=== PATIENT | male | born 1965 | race Caucasian/White ===

== ENCOUNTER → 2016-07-30 | Outpatient (CLI) | payer OTHER ==
[2016-07-30 09:56] LABS: Cholesterol 148 mg/dL (<200); HDL Cholesterol 47 mg/dL (40-60); Triglycerides 92 mg/dL (<150)
== END | disposition home or self-care (01) ==
LOC: LABWHC1 08:43
PROVIDERS: ATTEND Internal Medicine Cardiovascular Disease
DX: E78.5 Hyperlipidemia, unspecified (principal); E11.9 Type 2 diabetes mellitus without complications; I10 Essential (primary) hypertension
CPT/HCPCS: 36415; 80061

== ENCOUNTER 2016-08-07 10:42 | Day surgery (SDC) | payer OTHER ==
[2016-08-05 12:16] VITALS: BMI 27.2
[~2016-08-07 10:42] MED LIST: ALPRAZolam 0.25 MG TAB PO PRN; ALPRAZolam 0.5 MG TAB PO PRN; ASPIRIN 325 MG TAB PO STA; ATORVASTATIN 80 MG TAB PO STA; NITROGLYCERIN SL TABS 0.4 MG TAB SUBLINGUAL PRN; SODIUM CHLORIDE 0.9% 1,000 ML in EMPTY BAG 1 BAG IV ONE
[2016-08-07] MEDS ORDERED: LISINOPRIL 10 MG TAB PO STA (11:05)
[2016-08-07] MEDS ORDERED: METOPROLOL TARTRATE 25 MG TAB PO STA (11:05)
[2016-08-07 11:17] LABS: Glucose,Whole Blood 151 mg/dL (75-99)
[2016-08-07 11:31] LABS: Basophils # (A) 0.1 k/uL (0-0.2); Basophils % (A) 1 %; CH 30.1; CHCM 34.6; Eosinophils # (A) 0.1 k/uL (0-0.7); Eosinophils % (A) 1 %; HCT 46.4 % (39.0-53.0); HDW 2.79; HGB 15.6 gm/dL (13.0-17.5); Luc # (Auto) 0.19; Luc % (Auto) 2; Lymphocytes # (A) 1.2 k/uL (1.0-4.8); Lymphocytes % (A) 16 %; MCH 29.5 pg (25.0-35.0); MCHC 33.7 g/dL (31.0-37.0); MCV 87.5 fL (80.0-100.0); Mean Platelet Volume 7.3; Monocytes # (A) 0.4 k/uL (0-1.0); Monocytes % (A) 6 %; Neutrophils # (A) 5.7 k/uL (1.3-7.7); Neutrophils % (A) 74 %; WBC 7.7 k/uL (3.8-10.6); WBC (Perox) 7.77
[2016-08-07 11:37] LABS: Anion Gap 9 mmol/L; Blood Urea Nitrogen 27 mg/dL (9-20); Calcium 9.6 mg/dL (8.4-10.2); Carbon Dioxide 24 mmol/L (22-30); Chloride 107 mmol/L (98-107); Glucose 159 mg/dL (74-99); Non-African American GFR(MDRD) >60 (>60 ml/min/1.73 sqM); Potassium 4.4 mmol/L (3.5-5.1); Sodium 140 mmol/L (137-145)
[2016-08-07] MEDS ORDERED: MIDAZOLAM 2 MG/2 ML VIAL IV ONE (12:23)
[2016-08-07] MEDS ORDERED: fentaNYL (PF) 50 MCG/ML 2 ML AMP IV ONE (12:23)
[2016-08-07] MEDS ORDERED: LIDOCAINE 2% INJ 20 MG/ML SQ ONE (12:30)
[2016-08-07] MEDS ORDERED: IOHEXOL 350 MG/ML 125ML BOTTLE INJ ONE (12:49)
[2016-08-07] MEDS ORDERED: RX INFO: IV CONTRAST WAS GIVEN 1 EACH MISC MISCELLANE PRN (12:57)
--- NOTE | 2016-08-07 13:06 | P.PCN ---
Date of Procedure: 08/07/16 Preoperative Diagnosis: Exertional angina and positive stress test Postoperative Diagnosis: Triple-vessel disease with preserved LV function Procedure(s) Performed: Left heart catheterization and left ventriculography Description of Procedure: HISTORY: This is a 51-year-old gentleman with history of diabetes and hypertension who has been experiencing exertional chest pain which was fairly controlled with medical therapy. Subsequently, patient was evaluated stress correlation study which showed severe ischemia involving the inferolateral segments. Patient is advised to have a cardiac catheterization for definitive diagnosis. CONSENT:I have discussed the risks, benefits and alternative therapies for the above-mentioned procedure and for both sedation/analgesia as well as necessary blood product administration, if indicated, as they pertain to this patient. The patient has indicated understanding and acceptance of the risks and procedures discussed. PROCEDURE: Patient was brought to the lab in a fasting state. Patient was given some IV sedation. The right groin is infiltrated with lidocaine and right femoral artery was entered using Seldinger technique. A 6-Greek catheter was left in place and selective coronary arteriography and left ventriculography was performed. Patient tolerated the procedure well. Femoral angiogram was performed and Angio-Seal was applied for hemostasis. No immediate complications were noted and patient was transferred to [facility] in a stable condition HEMODYNAMICS: The aortic pressure is 135/80. Left ankle end-diastolic pressure is 15-20. There was no gradient across the aortic valve. SELECTIVE CORONARY ARTERIOGRAPHY: LEFT MAIN: This is a long with a mild distal tapering with about 30-40% luminal narrowing. THE LEFT ANTERIOR DESCENDING CORONARY ARTERY: This is a moderate caliber vessel which is calcified with a long segment of stenosis involving the proximal and midportion with 95% luminal narrowing. There is also about 90% stenosis of the proximal portion. The diagonal which is moderate in. 4 distal LAD also has about 90% stenosis. THE LEFT CIRCUMFLEX AND IS CORONARY ARTERY: This is a moderate caliber vessel giving rise to good-sized first OM branch. The OM branch has about 95% stenosis. The proximal circumflex also has a 90% stenosis. There appears to be collateral from the right to the distal circumflex. THE RIGHT CORONARY ARTERY: This is a moderate caliber vessel with diffuse disease with areas of about 50-60% stenosis at multiple sites. The ovaries no. The PDA has about 85-90% stenosis. LEFT VENTRICULOGRAPHY: This revealed normal-sized cardiac silhouette with a systolic function with an ejection fraction about 50 to 55 percent FINAL IMPRESSION: Severe triple-vessel disease with preserved LV function. PLAN: Higher to coronary bypass surgery with grafts to the diagonal LAD, OM branch and distal right and possibly distal circumflex. PROGNOSIS: Guarded
[2016-08-07 14:25] LABS: INR 1.1 (<1.1); Partial Thromboplastin Time 25.8 sec (22.0-30.0); Prothrombin Time 10.9 sec (9.0-12.0)
[2016-08-07 14:26] LABS: ALT 40 U/L (21-72); AST 22 U/L (17-59); Alkaline Phosphatase 56 U/L (38-126); Anion Gap 9 mmol/L; Blood Urea Nitrogen 23 mg/dL (9-20); Calcium 9.5 mg/dL (8.4-10.2); Carbon Dioxide 24 mmol/L (22-30); Chloride 107 mmol/L (98-107); Cholesterol 148 mg/dL (<200); Glucose 119 mg/dL (74-99); HDL Cholesterol 48 mg/dL (40-60); Magnesium 2.1 mg/dL (1.6-2.3); Non-African American GFR(MDRD) >60 (>60 ml/min/1.73 sqM); Potassium 4.6 mmol/L (3.5-5.1); Sodium 140 mmol/L (137-145); Total Bilirubin 0.6 mg/dL (0.2-1.3); Total Protein 6.9 g/dL (6.3-8.2); Triglycerides 64 mg/dL (<150)
[2016-08-07 14:53] LABS: Hemoglobin A1C 7.9 % (4.2-6.1)
--- NOTE | 2016-08-07 15:35 | P.GSCN ---
History of Present Illness Consult date: 08/07/16 Reason for Consult: Coronary artery disease History of present illness: The patient is a 51-year-old male with a history of hypertension, diabetes mellitus, and hypercholesterolemia who reports occasional chest pain with activity. Denies shortness of breath, fevers, chills, or swelling in his legs. He did undergo a stress test which was found to be abnormal. He presented this morning for an elective cardiac catheterization which revealed multivessel coronary artery disease. I was asked to evaluate him for treatment recommendations. Review of Systems All systems: negative - Constitutional Reports fatigue - Cardiovascular Reports chest pain Past Medical History Past Medical History: Diabetes Mellitus, Hyperlipidemia, Hypertension Additional Past Medical History / Comment(s): See Dr Shin H&P, History of Any Multi-Drug Resistant Organisms: None Reported Past Surgical History: No Surgical Hx Reported Past Anesthesia/Blood Transfusion Reactions: No Reported Reaction Past Psychological History: No Psychological Hx Reported Smoking Status: Unknown if ever smoked Past Alcohol Use History: Occasional Past Drug Use History: None Reported - Past Family History Father Family Medical History: Cancer, Coronary Artery Disease (CAD) Brother(s) Family Medical History: Cancer Medications and Allergies Home Medications Medication Instructions Recorded Confirmed Type Aspirin [Adult Low Dose Aspirin EC] 81 mg PO DAILY 08/05/16 08/07/16 History Atorvastatin [Lipitor] 10 mg PO DAILY 08/06/16 08/07/16 History Dapagliflozin Propanediol [Farxiga] 10 mg PO DAILY 08/06/16 08/07/16 History Lisinopril [Prinivil] 10 mg PO DAILY 08/06/16 08/07/16 History Metoprolol Tartrate 25 mg PO DAILY 08/06/16 08/07/16 History glipiZIDE [Glucotrol] 10 mg PO AC-BRKFST 08/06/16 08/07/16 History metFORMIN HCL 1,000 mg PO DAILY 08/06/16 08/06/16 History Allergies Allergy/AdvReac Type Severity Reaction Status Date / Time No Known Allergies Allergy Verified 08/05/16 12:10 Surgical - Exam Vital Signs Temp Pulse Resp BP Pulse Ox 99.1 F 67 16 161/91 99 08/07/16 11:04 08/07/16 11:04 08/07/16 11:04 08/07/16 11:04 08/07/16 11:04 - General well developed, well nourished, no distress - Eyes normal ocular movement - Neck no bruits - Respiratory clear to auscultation - Cardiovascular Rhythm: regular - Abdomen Abdomen: soft, non tender - Integumentary no rash - Psychiatric oriented to time, oriented to person, oriented to place Results - Labs 08/07/16 11:17 08/07/16 13:56 Abnormal Lab Results - Last 24 Hours (Table) 08/07/16 08/07/16 08/07/16 Range/Units 11:14 11: 11:17 Plt Count 149 L (150-450) k/uL BUN 27 H (9-20) mg/dL Glucose 159 H (74-99) mg/dL POC Glucose (mg/dL) 151 H (75-99) mg/dL 08/07/16 Range/Units 13:56 Plt Count (150-450) k/uL BUN 23 H (9-20) mg/dL Glucose 119 H (74-99) mg/dL POC Glucose (mg/dL) (75-99) mg/dL Diabetes panel 08/07/16 08/07/16 Range/Units 11:17 13:56 Sodium 140 140 (137-145) mmol/L Potassium 4.4 4.6 (3.5-5.1) mmol/L Chloride 107 107 (98-107) mmol/L Carbon Dioxide 24 24 (22-30) mmol/L BUN 27 H 23 H (9-20) mg/dL Creatinine 1.03 1.10 (0.66-1.25) mg/dL Glucose 159 H 119 H (74-99) mg/dL Calcium 9.6 9.5 (8.4-10.2) mg/dL AST 22 (17-59) U/L ALT 40 (21-72) U/L Alkaline Phosphatase 56 (38-126) U/L Total Protein 6.9 (6.3-8.2) g/dL Albumin 4.0 (3.5-5.0) g/dL Triglycerides 64 (<150) mg/dL HDL Cholesterol 48 (40-60) mg/dL Thyroid panel 08/07/16 Range/Units 13:56 TSH 1.060 (0.465-4.680) mIU/L Calcium panel 08/07/16 08/07/16 Range/Units 11:17 13:56 Calcium 9.6 9.5 (8.4-10.2) mg/dL Albumin 4.0 (3.5-5.0) g/dL Pituitary panel 08/07/16 08/07/16 Range/Units 11: 13:56 Sodium 140 140 (137-145) mmol/L Potassium 4.4 4.6 (3.5-5.1) mmol/L Chloride 107 107 (98-107) mmol/L Carbon Dioxide 24 24 (22-30) mmol/L BUN 27 H 23 H (9-20) mg/dL Creatinine 1.03 1.10 (0.66-1.25) mg/dL Glucose 159 H 119 H (74-99) mg/dL Calcium 9.6 9.5 (8.4-10.2) mg/dL TSH 1.060 (0.465-4.680) mIU/L Adrenal panel 08/07/16 08/07/16 Range/Units : 13:56 Sodium 140 140 (137-145) mmol/L Potassium 4.4 4.6 (3.5-5.1) mmol/L Chloride 107 107 (98-107) mmol/L Carbon Dioxide 24 24 (22-30) mmol/L BUN 27 H 23 H (9-20) mg/dL Creatinine 1.03 1.10 (0.66-1.25) mg/dL Glucose 159 H 119 H (74-99) mg/dL Calcium 9.6 9.5 (8.4-10.2) mg/dL Total Bilirubin 0.6 (0.2-1.3) mg/dL AST 22 (17-59) U/L ALT 40 (21-72) U/L Alkaline Phosphatase 56 (38-126) U/L Total Protein 6.9 (6.3-8.2) g/dL Albumin 4.0 (3.5-5.0) g/dL Assessment and Plan (1) Coronary artery disease Status: Acute Plan: The patient's cardiac catheterization was personally reviewed. He appears to have multivessel coronary disease. His arteries are small diffusely diseased diabetic vessels. We will begin workup for coronary artery bypass surgery. The risks, benefits, and alternatives to this procedure were discussed with the patient and his . All their questions were answered. At this point he is requesting for the surgery to be performed in about 2 weeks' time so that he can take care of some personal business. I did speak with Dr. Shin who agrees with this plan. He will spend the night for observation but will likely be discharged home in the morning. Time with Patient: Greater than 30
[2016-08-07 16:16] LABS: Hepatitis B Surface Ag Index 0.07
[2016-08-07 16:22] LABS: Hepatitis B Core IgM Index 0.02
[2016-08-07 16:36] LABS: Hepatitis C Virus IgG Index 0.03
[2016-08-07 16:37] LABS: Hepatitis C Virus IgG Ab Negative (Negative)
[2016-08-07 16:49] LABS: Appearance,Urine Clear (Clear); Bilirubin,Urine Negative (Negative); Glucose,Urine (UA) 4+ (Negative); Ketones,Urine Negative (Negative); Leukocyte Esterase,Urine Negative (Negative); Nitrite,Urine Negative (Negative); PH, Urine 5.5 (5.0-8.0); Protein,Urine Negative (Negative); UA Billing (MACRO vs. MICRO) CHEM; Urobilinogen,Urine <2.0 mg/dL (<2.0)
[2016-08-07] MEDS: SODIUM CHLORIDE 0.9% 1,000 ML IV SCH (17:16)
[2016-08-07 17:20] LABS: Specific Gravity,Urine 1.048 (1.001-1.035)
[2016-08-07 17:33] LABS: Glucose,Whole Blood 137 mg/dL (75-99)
--- NOTE | 2016-08-07 17:41 | US ---
EXAMINATION TYPE: US carotid duplex BILAT DATE OF EXAM: 08/07/2016 5:21 PM COMPARISON: NONE CLINICAL HISTORY: Pre op cardiac surgery. Pre-OP CABG EXAM MEASUREMENTS: RIGHT: Peak Systolic Velocity (PSV) cm/sec ----- Right CCA: 116.2 ----- Right ICA: 84.5 ----- Right ECA: 115.1 ICA/CCA ratio: 0.7 RIGHT: End Diastole cm/sec ----- Right CCA: 26.0 ----- Right ICA: 24.1 ----- Right ECA: 16.7 LEFT: Peak Systolic Velocity (PSV) cm/sec ----- Left CCA: 121.8 ----- Left ICA: 97.7 ----- Left ECA: 114.0 ICA/CCA ratio: 0.8 LEFT: End Diastole cm/sec ----- Left CCA: 21.5 ----- Left ICA: 25.2 ----- Left ECA: 15.3 VERTEBRALS (direction of flow): Right Vertebral: Antegrade Left Vertebral: Antegrade No significant stenosis seen IMPRESSION: There is antegrade flow in the vertebral arteries. The images and measurements suggest less than 25% stenosis in both internal carotid arteries. Criteria for Assigning % of Stenosis / Diameter reduction (Estimation based on the indirect measurements of the internal carotid artery velocities (ICA PSV). 1. Normal (no stenosis)=ICA PSV < 125 cm/s: ratio < 2.0: ICA EDV<40 cm/s. 2. Less than 50% stenosis=ICA PSV < 125 cm/s: ratio < 2.0: ICA EDV<40 cm/s. 3. 50 to 69% stenosis=ICA PSV of 125 to 230 cm/s: ration 2.0 ? 4.0: ICA EDV 40-100 cm/s. 4. Greater than 70% stenosis to near occlusion= ICA PSV > 230 cm/s: ratio > 4.0: ICA EDV > 100 cm/s. 5. Near occlusion= ICA PSV velocities may be low or undetectable: variable ratio and ICA EDV. 6. Total occlusion=unable to detect flow.
--- NOTE | 2016-08-07 17:42 | XR ---
EXAMINATION TYPE: XR chest 2V DATE OF EXAM: 08/07/2016 5:23 PM COMPARISON: 01/15/2012 HISTORY: Preop TECHNIQUE: Frontal and lateral views of the chest are obtained. FINDINGS: Heart and mediastinum are normal. Lungs are clear. Diaphragm is normal. There are chest le ads. Bony thorax is intact. IMPRESSION: Normal chest. No change.
[2016-08-08] MEDS: SODIUM CHLORIDE 0.9% 1,000 ML IV SCH (05:52)
[2016-08-08 07:11] LABS: Glucose,Whole Blood 164 mg/dL (75-99)
[2016-08-08 07:21] VITALS: BP 141/87; PULSE 61; RESP 16; TEMP 98.4
[2016-08-08] MEDS ORDERED: glipiZIDE 10 MG TAB PO SCH (07:30)
[2016-08-08] MEDS ORDERED: METOPROLOL TARTRATE 25 MG TAB PO SCH (09:00)
[2016-08-08] MEDS ORDERED: ASPIRIN 81 MG CHEW PO SCH (09:00)
[2016-08-08] MEDS ORDERED: ATORVASTATIN 10 MG TAB PO SCH (09:00)
[2016-08-08] MEDS ORDERED: LISINOPRIL 10 MG TAB PO SCH (09:00)
[2016-08-08] MEDS ORDERED: NON-FORMULARY DRUG (Dapagliflozin Propanediol [Farxiga] 10 MG) PO SCH (09:00)
--- NOTE | 2016-08-08 09:18 | P.DS ---
Providers Date of admission: 08/07/2016 Attending physician: Hedy Shin Consults: 08/07/16 13:45 Consult Physician Urgent Consulting Provider: Bobby Cox Consult Reason/Comments: triple vessel Do you want consulting provider notified?: Already Contacted Primary care physician: Amish Macarioio - Discharge Diagnosis(es) (1) Exertional angina Current Visit: Yes Status: Acute (2) Triple vessel coronary artery disease Current Visit: Yes Status: Acute (3) Diabetes mellitus Current Visit: Yes Status: Acute Hospital Course: Patient came to have outpatient cardiac catheterization yesterday. He was found to have severe triple-vessel disease with preserved LV function. Patient was seen by cardiac surgeon and a outpatient cardiac surgery is being planned. Patient didn't want to stay and wanted to have some time to arrange his business and patient remained stable overnight. His groin is soft without any hematoma. Patient is being discharged home to continue home medications. He will hold metformin for 24 hours. Patient is advised not to do any heavy exertional activities. No heavy lifting, pushing or pulling. Follow-up in the office in one week with the nurse practitioner. CABG in 2-3 weeks Plan - Discharge Summary Discharge Medication List Aspirin [Adult Low Dose Aspirin EC] 81 mg PO DAILY 08/05/16 [History] Atorvastatin [Lipitor] 10 mg PO DAILY 08/06/16 [History] Dapagliflozin Propanediol [Farxiga] 10 mg PO DAILY 08/06/16 [History] Lisinopril [Prinivil] 10 mg PO DAILY 08/06/16 [History] Metoprolol Tartrate 25 mg PO DAILY 08/06/16 [History] glipiZIDE [Glucotrol] 10 mg PO AC-BRKFST 08/06/16 [History] Follow up Appointment(s)/Referral(s): Hedy Shin MD [STAFF PHYSICIAN] - 1 Week Discharge Disposition: HOME SELF-CARE
--- NOTE | 2016-08-08 10:42 | P.PN ---
Subjective Principal diagnosis: Severe triple-vessel disease with preserved LV function. Preoperative coronary artery bypass graft surgery, planned for 08/17/2016. Patient currently sitting up in bed in no apparent distress. at bedside. Pending discharge. Objective - Vital Signs Vital signs: Vital Signs Temp 98.4 F 08/08/16 07:20 Pulse 61 08/08/16 07:20 Resp 16 08/08/16 07:20 BP 141/87 08/08/16 07:20 Pulse Ox 98 08/08/16 07:20 Intake & Output 08/07/16 08/08/16 08/08/16 18:59 06:59 18:59 Intake Total 513 1410 240 Balance 513 1410 240 Weight 79.1 kg Intake: IV 275 300 Sodium Chloride 0.9% 1, 125 300 000 ml @ 75 mls/hr IV . [id number] [facility] Rx#:[id number] Intake, IV Titration 160 Amount Sodium Chloride 0.9% 1, 160 000 ml @ 75 mls/hr IV . [id number] [facility] Rx#:[id number] Oral 238 950 240 Other: Voiding Method Toilet Toilet Toilet # Voids 1 2 - Constitutional General appearance: Present: cooperative, no acute distress - Respiratory Details: Lungs sounds diminished bilaterally. Respirations even, nonlabored. Currently on room air with oxygen saturation 98%. - Cardiovascular Details: S1, S2 present. Regular rate and rhythm. - Gastrointestinal Gastrointestinal Comment(s): Abdomen soft, nontender, nondistended. Active bowel sounds 4 quadrants. Tolerating diet. - Genitourinary Genitourinary Comment(s): Voiding clear, yellow urine. - Musculoskeletal Musculoskeletal: Present: gait normal, strength equal bilaterally - Psychiatric Psychiatric: Present: A&O x's 3, appropriate affect, intact judgment & insight - Allied health notes Allied health notes reviewed: nursing - Labs CBC & Chem 7: 08/07/16 11:17 08/07/16 13:56 Labs: Abnormal Lab Results - Last 24 Hours (Table) 08/07/16 08/07/16 08/07/16 Range/Units 11:14 11:17 11:17 Plt Count 149 L (150-450) k/uL BUN 27 H (9-20) mg/dL Glucose 159 H (74-99) mg/dL POC Glucose (mg/dL) 151 H (75-99) mg/dL Hemoglobin A1c (4.2-6.1) % Ur Specific [place] (1.001-1.035) Urine Glucose (UA) (Negative) 08/07/16 08/07/16 08/07/16 Range/Units 13:56 13:56 16:22 Plt Count (150-450) k/uL BUN 23 H (9-20) mg/dL Glucose 119 H (74-99) mg/dL POC Glucose (mg/dL) (75-99) mg/dL Hemoglobin A1c 7.9 H (4.2-6.1) % Ur Specific [place] 1.048 H (1.001-1.035) Urine Glucose (UA) 4+ H (Negative) 08/07/16 08/08/16 Range/Units 17:30 07:09 Plt Count (150-450) k/uL BUN (9-20) mg/dL Glucose (74-99) mg/dL POC Glucose (mg/dL) 137 H 164 H (75-99) mg/dL Hemoglobin A1c (4.2-6.1) % Ur Specific [place] (1.001-1.035) Urine Glucose (UA) (Negative) Microbiology - Last 24 Hours (Table) 08/07/16 16:22 Urine Culture - Preliminary Urine,Voided 08/07/16 15:00 Nasal Culture - Preliminary Nasopharyngeal Swab - Imaging and Cardiology Chest x-ray: image reviewed Carotid Dopplers reviewed. Assessment and Plan (1) Hyperlipidemia Status: Acute (2) Hypertension Status: Acute (3) Coronary artery disease Status: Acute (4) Diabetes mellitus Status: Acute Plan: Patient was seen and examined with at bedside. Preoperative teaching reinforced. Questions answered. Patient given CABG binder. 5 m walk test done. #1 3.14 seconds, #2 4.23 seconds, #3 3.4 to seconds Time with Patient: Greater than 30
--- NOTE | 2016-08-12 14:13 | P.ARTDOP ---
Arterial Doppler LOWER EXTREMITY ARTERIAL DOPPLER: DATE OF SERVICE: 08/08/2016 Reason for study: Pre-CABG. Doppler waveforms: Multiphasic bilaterally throughout. Pulse volume recording: []. Pressure gradients: Mild gradient across the left knee Ankle-brachial indices: Greater than 1 on the right 0.84 on the left. Toe pressures: [] on the right, [] on the left Impression: Normal on the right. Suspect mild left SFA disease..
--- NOTE | 2016-08-12 14:14 | P.VSCSTY ---
Greater Saphenous Vein Mapping This is bilateral lower extremity greater saphenous vein mapping. Date of service 08/07/2016 Vein quality and ultrasound appearance normal. Vein size groin right 6.1 x 6.6 groin left 6.6 x 6.4 High thigh right 3.7 x 3.0 high thigh left 3.5 x 3.5 Mid thigh right 3.7 x 3.9 mid thigh left 3.6 x 3.6 Above-knee right 3.7 x 5.1 above- knee left 3.8 x 3.4 Below knee right 3.4 x 4.2 below-knee left 3.3 x 3.7 Mid calf right 3.0 x 3.5 mid calf left 3.1 x 3.7 Ankle right 3.1 x 5.0 ankle left 3.4 x 4.4 Impression usable bilateral greater saphenous vein.
== END 2016-08-08 11:20 | disposition home or self-care (01) ==
LOC: CATHCVL 10:42 → 3OBS 12:52 → 3SUR 19:15 → CATHCVL 08-08 11:20
PROVIDERS: ATTEND Internal Medicine Cardiovascular Disease
DX: I25.118 Atherosclerotic heart disease of native coronary artery with other forms of angina pectoris (principal); I25.84 Coronary atherosclerosis due to calcified coronary lesion; I10 Essential (primary) hypertension; E11.9 Type 2 diabetes mellitus without complications; Z79.84 Long term (current) use of oral hypoglycemic drugs; E78.5 Hyperlipidemia, unspecified; Z01.818 Encounter for other preprocedural examination; Z79.82 Long term (current) use of aspirin; Z79.899 Other long term (current) drug therapy; Z82.49 Family history of ischemic heart disease and other diseases of the circulatory system; E78.00 Pure hypercholesterolemia, unspecified
CPT/HCPCS: 93458; 83880; 80061; 80053; 80048; 80074; 84443; 83036; 83735; 85025; 85610; 85730; 81003; 87070; 87086; 71020; 93970; 93923; 93880; 99152; 99153; C1760; C1894; C1769; J2001; J2250; J3010; Q9967

== ENCOUNTER 2016-08-20 05:47 | Inpatient (IN) | payer OTHER ==
[2016-08-17 15:03] VITALS: BMI 27.2
[~2016-08-20 05:47] MED LIST changes: +ALBUMIN HUMAN 25% 50 ML IV ONE; +ALBUMIN HUMAN 5% 500 ML IVPB ONE; -ALPRAZolam 0.25 MG TAB PO PRN; -ALPRAZolam 0.5 MG TAB PO PRN; +AMINOCAPROIC ACID 250 MG/ML 20 ML VIAL IV ONE; +AMINOCAPROIC ACID 5,000 MG in DEXTROSE 5% IN WATER 50 ML IV ONE; +ASPIRIN 325 MG TAB PO ONE; -ASPIRIN 325 MG TAB PO STA; -ATORVASTATIN 80 MG TAB PO STA; +CALCIUM CHLORIDE 100 MG/ML 10 ML SYRINGE IV ONE; +CHLORHEXIDINE GLUCONATE 15 ML CUP MUCOUS MEM ONE; +CLEVIDIPINE BUTYRATE 25 MG in EMPTY BAG 1 BAG IV ONE; +DEXTROSE 5% IN WATER 1,000 ML with POTASSIUM CHLORIDE 110 MEQ, MAGNESIUM SULFATE 16 MEQ... IV ONE; +DEXTROSE 5% IN WATER 1,000 ML with POTASSIUM CHLORIDE 25 MEQ, SODIUM CHLORIDE 4MEQ/ML V... IV ONE; +DILTIAZEM 125 MG in SODIUM CHLORIDE 0.9% 100 ML IV ONE; +HEPARIN SODIUM 1,000 UNIT/ML VIAL IV ONE; +HEPARIN SODIUM,PORCINE 5,000 UNIT in SODIUM CHLORIDE 0.9% 500 ML IV ONE; +INSULIN REGULAR 100 UNIT in SODIUM CHLORIDE 0.9% 100 ML IV ONE; +LACTATED RINGERS 1,000 ML IV ONE; +MAGNESIUM SULFATE MG 500 MG/ML VIAL IV ONE; +MANNITOL 25% 12.5 GM/50 ML VIAL IV ONE; +METOPROLOL TARTRATE 12.5 MG TAB PO ONE; +MUPIROCIN 2% OINT 22 GM TUBE NASAL ONE; -NITROGLYCERIN SL TABS 0.4 MG TAB SUBLINGUAL PRN; +NITROGLYCERIN-D5W PMX 25 MG/250 ML BTL IV ONE; +NITROGLYCERIN-D5W PMX 50 MG in DEXTROSE/WATER 1 250ML.BAG IV ONE; +NOREPINEPHRIN 4 MG-0.9% NS PMX 4 MG/250 ML ML IV ONE; +PHENYLEPHRINE 40 MG in SODIUM CHLORIDE 0.9% 250 ML IV ONE; +PHENYLEPHRINE-0.9% NACL SYG 1 MG/10 ML SYRINGE IV ONE; +PROPOFOL 50 ML IV ONE; +PROTAMINE SULFATE 10 MG/ML 25 ML VIAL IV ONE; +PROTAMINE SULFATE 250 MG in EMPTY BAG 1 BAG IV ONE; +SODIUM BICARB 8.4% 50 ML SYR (1 MEQ/ML) IV ONE; +SODIUM CHLORIDE 0.9% 1,000 ML IV ONE; -SODIUM CHLORIDE 0.9% 1,000 ML in EMPTY BAG 1 BAG IV ONE; +ceFAZolin 1,000 MG in SODIUM CHLORIDE 0.9% IRRIGATIO 1,000 ML IRRIGATION ONE; +ceFAZolin 2,000 MG in SODIUM CHLORIDE 0.9% 30 ML IVPB ONE
[2016-08-20 06:11] LABS: Glucose,Whole Blood 169 mg/dL (75-99)
[2016-08-20] MEDS ORDERED: CALCIUM CHLORIDE 100 MG/ML 10 ML SYRINGE ONE (07:58)
[2016-08-20] MEDS ORDERED: MIDAZOLAM 2 MG/2 ML VIAL ONE (07:58)
[2016-08-20] MEDS ORDERED: SODIUM CHLORIDE 0.9% IRRIG 1,000 ML BTL IRRIGATION ONE (07:58)
[2016-08-20] MEDS ORDERED: WATER FOR INJECTION, STERILE 10 ML VIAL IV ONE (07:58)
[2016-08-20] MEDS ORDERED: LIDOCAINE 2% SYG (PF) 100 MG/5 ML ONE (07:58)
[2016-08-20] MEDS ORDERED: PROPOFOL 10 MG/ML 20 ML VIAL IV ONE (07:58)
[2016-08-20] MEDS ORDERED: fentaNYL (PF) 50 MCG/ML 50 ML VIAL ONE (07:58)
[2016-08-20] MEDS ORDERED: PROTAMINE SULFATE 10 MG/ML 25 ML VIAL IV ONE (07:58)
[2016-08-20] MEDS ORDERED: VECURONIUM 10 MG VIAL IV ONE (07:58)
[2016-08-20] MEDS ORDERED: fentaNYL (PF) 50 MCG/ML 2 ML AMP ONE (07:58)
[2016-08-20] MEDS ORDERED: ALBUMIN HUMAN 5% 500 ML VIAL IVPB ONE (07:58)
[2016-08-20] MEDS ORDERED: HEPARIN SODIUM,PORCINE 10,000 UNIT/ML 1 ML VIAL ONE (07:58)
[2016-08-20] MEDS ORDERED: HEPARIN SODIUM 1,000 UNIT/ML VIAL ONE (07:58)
[2016-08-20] MEDS ORDERED: ELECTROLYTE-R (PH 7.4) 1,000 ML IV.SOLN IV ONE (07:58)
[2016-08-20] MEDS ORDERED: PROTAMINE SULFATE 10 MG/ML 5 ML VIAL IV ONE (07:58)
[2016-08-20 08:38] LABS: Glucose,Whole Blood 193 mg/dL (75-99)
[2016-08-20 10:00] LABS: Glucose,Whole Blood 185 mg/dL (75-99)
[2016-08-20 11:00] LABS: Glucose,Whole Blood 237 mg/dL (75-99)
[2016-08-20 11:28] LABS: Glucose,Whole Blood 218 mg/dL (75-99)
[2016-08-20 12:14] LABS: Glucose,Whole Blood 234 mg/dL (75-99)
[2016-08-20 12:46] LABS: Glucose,Whole Blood 217 mg/dL (75-99)
[2016-08-20 14:18] LABS: Glucose,Whole Blood 201 mg/dL (75-99)
[2016-08-20] MEDS ORDERED: PROPOFOL 500 MG in EMPTY BAG 1 BAG IV SCH (14:58)
[2016-08-20] MEDS ORDERED: ONDANSETRON 4 MG/2 ML VIAL IVP PRN (14:58)
[2016-08-20] MEDS ORDERED: METOCLOPRAMIDE 5 MG/ML 2 ML VIAL IVP PRN (14:58)
[2016-08-20] MEDS ORDERED: Phosphorus Replacement Protoco 1 EACH MISC MISCELLANE PRN (14:58)
[2016-08-20] MEDS ORDERED: NITROGLYCERIN-D5W PMX 50 MG in DEXTROSE/WATER 1 250ML.BAG IV SCH (14:58)
[2016-08-20] MEDS ORDERED: Magnesium Replacement Protocol 1 EACH MISC MISCELLANE PRN (14:58)
[2016-08-20] MEDS ORDERED: CALCIUM GLUCONATE 2,000 MG in SODIUM CHLORIDE 0.9% 100 ML IVPB PRN (14:58)
[2016-08-20] MEDS ORDERED: INSULIN REGULAR 100 UNIT in SODIUM CHLORIDE 0.9% 100 ML IV SCH (14:58)
[2016-08-20] MEDS ORDERED: BENZOCAINE/MENTHOL LOZENG 1 EACH LOZENGE MUCOUS MEM PRN (14:58)
[2016-08-20] MEDS ORDERED: Potassium Replacement Protocol 1 EACH MISC MISCELLANE PRN (14:58)
[2016-08-20] MEDS ORDERED: ALBUMIN HUMAN 5% 250 ML in EMPTY BAG 1 BAG IVPB PRN (14:58)
[2016-08-20 15:25] LABS: Glucose,Whole Blood 119 mg/dL (75-99)
[2016-08-20] MEDS: CLEVIDIPINE BUTYRATE 25 MG in EMPTY BAG 1 BAG IV SCH (15:30)
--- NOTE | 2016-08-20 15:36 | XR ---
EXAMINATION TYPE: XR chest 1V portable DATE OF EXAM: 08/20/2016 3:30 PM COMPARISON: 08/07/2016 HISTORY: Post cardiac surgery TECHNIQUE: Single frontal view of the chest is obtained. FINDINGS: ET tube 2.8 cm above veronica. Hollis-Tosin catheter tip overlying proximal pulmonary outflow t ract. Bilateral chest tube seen with mediastinal drain. Postsurgical changes noted. Diffuse interstitial pattern seen. Tiny bilateral effusions. NG tube appears in good position. IMPRESSION: 1. Postoperative changes with findings suggestive of mild central venous congestion.
[2016-08-20 15:55] LABS: ABG Base Excess -0.5 mmol/L; ABG HCO3 24 mmol/L (21-25); ABG PCO2 39 mmHg (35-45); ABG PO2 275 mmHg (83-108); ABG TCO2 25 mmol/L (19-24)
[2016-08-20 16:10] LABS: Glucose,Whole Blood 104 mg/dL (75-99)
[2016-08-20 16:11] LABS: ALT 26 U/L (21-72); AST 20 U/L (17-59); Alkaline Phosphatase 24 U/L (38-126); Anion Gap 7 mmol/L; Blood Urea Nitrogen 16 mg/dL (9-20); Calcium 8.1 mg/dL (8.4-10.2); Carbon Dioxide 24 mmol/L (22-30); Chloride 109 mmol/L (98-107); Glucose 111 mg/dL (74-99); Magnesium 2.7 mg/dL (1.6-2.3); Non-African American GFR(MDRD) >60 (>60 ml/min/1.73 sqM); Potassium 3.8 mmol/L (3.5-5.1); Sodium 140 mmol/L (137-145); Total Bilirubin 0.7 mg/dL (0.2-1.3); Total Protein 4.9 g/dL (6.3-8.2)
[2016-08-20 16:14] LABS: INR 1.3 (<1.1); Partial Thromboplastin Time 35.8 sec (22.0-30.0)
[2016-08-20 16:15] LABS: Basophils % (A) 0 %; CH 29.8; CHCM 35.4; Eosinophils # (A) 0.1 k/uL (0-0.7); Eosinophils % (A) 1 %; HCT 24.3 % (39.0-53.0); HDW 3.05; Luc # (Auto) 0.06; Luc % (Auto) 1; Lymphocytes # (A) 0.7 k/uL (1.0-4.8); Lymphocytes % (A) 11 %; MCH 29.8 pg (25.0-35.0); MCHC 35.4 g/dL (31.0-37.0); MCV 84.3 fL (80.0-100.0); Mean Platelet Volume 7.5; Monocytes # (A) 0.3 k/uL (0-1.0); Monocytes % (A) 4 %; Neutrophils # (A) 5.6 k/uL (1.3-7.7); Neutrophils % (A) 83 %; RBC 2.89 m/uL (4.30-5.90); RDW 13.4 % (11.5-15.5); WBC 6.8 k/uL (3.8-10.6); WBC (Perox) 6.87
[2016-08-20 16:17] LABS: HGB 8.6 gm/dL (13.0-17.5)
[2016-08-20] MEDS: LACTATED RINGERS 1,000 ML IV SCH (16:52)
[2016-08-20] MEDS: ceFAZolin 2 GM in SODIUM CHLORIDE 0.9% 100 ML IVPB SCH (16:53)
[2016-08-20 17:27] LABS: Glucose,Whole Blood 90 mg/dL (75-99)
[2016-08-20] MEDS: ACETAMINOPHEN IV (For NPO) 1,000 MG in EMPTY BAG 1 BAG IVPB SCH ×2 (17:34→23:02)
[2016-08-20] MEDS ORDERED: NALOXONE 0.4 MG/ML 1 ML VIAL IV PRN (17:53)
--- NOTE | 2016-08-20 17:56 | P.CNPUL ---
History of Present Illness Consult date: 08/20/16 Requesting physician: Bobby Cox Reason for consult: other (Status post CABG, patient is presently on mechanical ventilation.) Chief complaint: Status post CABG History of present illness: This is a 51-year-old white male with history of hypertension, diabetes, hypercholesterolemia, patient had a recent stress test which was found to be abnormal. Cardiac catheterization showed multivessel coronary artery disease. Patient was basically relatively asymptomatic except for occasional chest pains and fatigue. Today, the patient underwent myocardial revascularization, postoperatively he was on mechanical ventilation, and I was asked to see him on consultation. Patient is on mechanical ventilation, his chest x-ray was reviewed and showed mostly postoperative changes. ABG was reviewed and events settings were addressed accordingly. Review of Systems ROS unobtainable: due to endotracheal tube Past Medical History Past Medical History: Chest Pain / Angina, Diabetes Mellitus, Hyperlipidemia, Hypertension Additional Past Medical History / Comment(s): had a PICC line 4-5 yrs. ago for an infection in a toe-doesn't think was MRSA History of Any Multi-Drug Resistant Organisms: None Reported Past Surgical History: Heart Catheterization Past Anesthesia/Blood Transfusion Reactions: No Reported Reaction Past Psychological History: No Psychological Hx Reported Smoking Status: Never smoker Past Alcohol Use History: Occasional Past Drug Use History: None Reported - Past Family History Father Family Medical History: Cancer, Coronary Artery Disease (CAD) Brother(s) Family Medical History: Cancer Medications and Allergies Home Medications Medication Instructions Recorded Confirmed Type Aspirin [Adult Low Dose Aspirin EC] 81 mg PO DAILY 08/05/16 08/20/16 History Atorvastatin [Lipitor] 10 mg PO DAILY 08/06/16 08/20/16 History Dapagliflozin Propanediol [Farxiga] 10 mg PO DAILY 08/06/16 08/20/16 History Lisinopril [Prinivil] 10 mg PO DAILY 08/06/16 08/20/16 History Metoprolol Tartrate 25 mg PO DAILY 08/06/16 08/20/16 History glipiZIDE [Glucotrol] 10 mg PO AC-BRKFST 08/06/16 08/20/16 History Nitroglycerin Sl Tabs [Nitrostat] 0.4 mg SUBLINGUAL Q5M PRN 08/17/16 08/20/16 History Allergies Allergy/AdvReac Type Severity Reaction Status Date / Time No Known Allergies Allergy Verified 08/20/16 06:19 Physical Exam Vitals: Vital Signs Temp Pulse Pulse Pulse Resp BP BP 08/20/16 17:15 95 21 08/20/16 17:00 81 21 08/20/16 16:45 79 08/20/16 16:30 78 12 08/20/16 16:15 76 08/20/16 16:00 73 08/20/16 15:45 71 08/20/16 15:30 69 08/20/16 15:15 68 08/20/16 15:00 0 L 08/20/16 14:58 0 L 08/20/16 06:10 55 L 143/86 08/20/16 06:09 98.2 F 53 L 16 169/85 Pulse Ox 08/20/16 17:15 91 L 08/20/16 17:00 92 L 08/20/16 16:45 93 L 08/20/16 16:30 93 L 08/20/16 16:15 95 08/20/16 16:00 100 08/20/16 15:45 100 08/20/16 15:30 100 08/20/16 15:15 99 08/20/16 15:00 08/20/16 14:58 100 08/20/16 06:10 08/20/16 06:09 99 Intake and Output 08/20/16 08/20/16 08/20/16 06:59 14:59 22:59 Intake Total 33 256.436 Output Total 2625 960 Balance -2592 -703.564 Intake: IV 33 250 Lactated Ringers 1,000 ml 150 @ 50 mls/hr IV .Q20H [facility] Rx#:[id number] ceFAZolin 2 gm In Sodium 100 Chloride 0.9% 100 ml @ 100 mls/hr IVPB Q8HR [facility] Rx#:[id number] Intake, IV Titration 6.436 Amount Clevidipine Butyrate 25 2.733 mg In Empty Bag 1 bag @ 1 MG/HR 2 mls/hr IV .Q24H [facility] Rx#:[id number] Insulin Regular 100 unit 3.703 In Sodium Chloride 0.9% 100 ml @ Per Protocol IV .Q0M [facility] Rx#:[id number] Output: Chest Tube Drainage 130 Chest Tube Bilateral 55 Lateral Chest Mediastinal 75 Urine 825 830 Estimated Blood Loss 1800 Other: Weight 78.6 kg ABP, PAP, CO, CI - Last 8 Hours Arterial Blood Pressure 125/56 Arterial Blood Pressure 134/57 Arterial Blood Pressure 131/56 Arterial Blood Pressure 131/56 Arterial Blood Pressure 135/59 Arterial Blood Pressure 135/60 Arterial Blood Pressure 156/63 Arterial Blood Pressure 133/54 Arterial Blood Pressure 133/61 Pulmonary Artery Pressure 32/21 Pulmonary Artery Pressure 35/22 Pulmonary Artery Pressure 34/21 Pulmonary Artery Pressure 36/22 Pulmonary Artery Pressure 32/23 Pulmonary Artery Pressure 29/20 Pulmonary Artery Pressure 28/17 Pulmonary Artery Pressure 27/17 Pulmonary Artery Pressure 34/26 Cardiac Output 7.7 Cardiac Output 7.7 Cardiac Output 7.6 Cardiac Output 7.6 Cardiac Output 8.1 Cardiac Output 6.8 Cardiac Output 6.8 Cardiac Output 6.8 Cardiac Output 6.8 Cardiac Index 4 Cardiac Index 4 Cardiac Index 4.3 Cardiac Index 3.6 Physical Exam: Revealed a 51-year-old white male on mechanical ventilation, sedated, in no distress. Endotracheal tube and orogastric tube are intact. HEENT:[Neck is supple.] [No neck masses.] [No thyromegaly.] [No JVD.] Chest: [Clear throughout, no crackles, no rhonchi, no wheezes.] Cardiac Exam: [Normal S1 and S2, no S3 gallop, no murmur positive pericardial rub.] Abdomen: [Soft, nontender, no megaly, no rebound, no guarding, normal bowel sounds.] Extremities: [No clubbing, no edema, no cyanosis.] Neurological Exam: Cannot be assessed, patient is sedated and mechanically ventilated. Results - Laboratory Findings CBC and BMP: 08/20/16 15:25 08/20/16 14:58 ABG ABG pH 7.40 (7.35-7.45) 08/20/16 15:48 ABG pCO2 39 mmHg (35-45) 08/20/16 15:48 ABG pO2 275 mmHg (83-108) H 08/20/16 15:48 ABG O2 Saturation 100.0 % (94-97) H 08/20/16 15:48 PT/INR, D-dimer PT 13.0 sec (9.0-12.0) H 08/20/16 15:25 INR 1.3 (<1.1) 08/20/16 15:25 Abnormal lab findings: Abnormal Labs 08/14/16 08/20/16 08/20/16 13:28 06:08 08:33 RBC Hgb Hct Plt Count Lymphocytes # PT APTT ABG pO2 ABG Total CO2 ABG O2 Saturation Chloride Glucose POC Glucose (mg/dL) 169 H 193 H Calcium Magnesium Alkaline Phosphatase Total Protein Albumin Crossmatch See Detail 08/20/16 08/20/16 08/20/16 09:57 10:56 11:26 RBC Hgb Hct Plt Count Lymphocytes # PT APTT ABG pO2 ABG Total CO2 ABG O2 Saturation Chloride Glucose POC Glucose (mg/dL) 185 H 237 H 218 H Calcium Magnesium Alkaline Phosphatase Total Protein Albumin Crossmatch 08/20/16 08/20/16 08/20/16 12:00 12:31 14:17 RBC Hgb Hct Plt Count Lymphocytes # PT APTT ABG pO2 ABG Total CO2 ABG O2 Saturation Chloride Glucose POC Glucose (mg/dL) 234 H 217 H 201 H Calcium Magnesium Alkaline Phosphatase Total Protein Albumin Crossmatch 08/20/16 08/20/16 08/20/16 14:58 15:22 15:25 RBC 2.89 L Hgb 8.6 L D Hct 24.3 L Plt Count 103 L Lymphocytes # 0.7 L PT APTT ABG pO2 ABG Total CO2 ABG O2 Saturation Chloride 109 H Glucose 111 H POC Glucose (mg/dL) 119 H Calcium 8.1 L Magnesium 2.7 H Alkaline Phosphatase 24 L Total Protein 4.9 L Albumin 3.2 L Crossmatch 08/20/16 08/20/16 08/20/16 15:25 15:48 16:00 RBC Hgb Hct Plt Count Lymphocytes # PT 13.0 H APTT 35.8 H ABG pO2 275 H ABG Total CO2 25 H ABG O2 Saturation 100.0 H Chloride Glucose POC Glucose (mg/dL) 104 H Calcium Magnesium Alkaline Phosphatase Total Protein Albumin Crossmatch - Diagnostic Findings Chest x-ray: image reviewed (Postoperative changes, mild venous congestion noted ) Assessment and Plan Plan: Impression: 1 status post CABG for multiple vessel coronary artery disease, patient is on mechanical ventilation. 2 history of diabetes, hypercholesterolemia, hypertension. Recommendation: Chest x-ray was reviewed, ABG was reviewed, ventilator settings were addressed, plan to address weeding and possibly extubation in the next few hours. We will continue to follow. Time with Patient: Greater than 30
[2016-08-20 18:18] LABS: Glucose,Whole Blood 126 mg/dL (75-99)
[2016-08-20 18:26] LABS: Basophils % (A) 0 %; CH 29.9; CHCM 35.4; Eosinophils % (A) 0 %; HCT 28.4 % (39.0-53.0); HDW 3.11; HGB 10.1 gm/dL (13.0-17.5); Luc # (Auto) 0.08; Luc % (Auto) 1; Lymphocytes # (A) 0.7 k/uL (1.0-4.8); Lymphocytes % (A) 7 %; MCHC 35.5 g/dL (31.0-37.0); MCV 84.6 fL (80.0-100.0); Mean Platelet Volume 7.6; Monocytes # (A) 0.5 k/uL (0-1.0); Monocytes % (A) 5 %; Neutrophils # (A) 9.1 k/uL (1.3-7.7); Neutrophils % (A) 88 %; RBC 3.36 m/uL (4.30-5.90); RDW 13.6 % (11.5-15.5); WBC 10.4 k/uL (3.8-10.6)
[2016-08-20] MEDS: POTASSIUM CHLORIDE 10 MEQ, LIDOCAINE 2% INJ 10 MG in SODIUM CHLORIDE 0.9% 100 ML IV SCH ×2 (18:36→20:24)
[2016-08-20 19:15] LABS: Glucose,Whole Blood 135 mg/dL (75-99)
[2016-08-20] MEDS: IPRATROPIUM-ALBUTEROL 3 ML NEB INHALATION SCH ×2 (19:20)
[2016-08-20 20:20] LABS: Glucose,Whole Blood 169 mg/dL (75-99)
[2016-08-20 21:15] LABS: ABG PCO2 34 mmHg (35-45); ABG PH 7.42 (7.35-7.45)
[2016-08-20 21:16] LABS: ABG Base Excess -2.2 mmol/L; ABG HCO3 22 mmol/L (21-25); ABG PO2 64 mmHg (83-108); ABG TCO2 23 mmol/L (19-24)
[2016-08-20] MEDS: MORPHINE SULFATE 2 MG/ML SYRINGE IVP PRN ×2 (21:30→23:48)
[2016-08-20 21:57] LABS: Glucose,Whole Blood 166 mg/dL (75-99)
[2016-08-20] MEDS: HEPARIN SODIUM,PORCINE 5,000 UNIT/ML 1 ML VIAL SQ SCH (23:02)
[2016-08-20 23:21] LABS: Glucose,Whole Blood 161 mg/dL (75-99)
[2016-08-21 00:14] LABS: Glucose,Whole Blood 153 mg/dL (75-99)
[2016-08-21] MEDS: ceFAZolin 2 GM in SODIUM CHLORIDE 0.9% 100 ML IVPB SCH ×2 (00:16→08:07)
[2016-08-21 00:45] LABS: Basophils % (A) 0 %; CH 29.9; CHCM 34.4; Eosinophils % (A) 0 %; HCT 30.4 % (39.0-53.0); HDW 2.88; HGB 10.6 gm/dL (13.0-17.5); Luc # (Auto) 0.02; Luc % (Auto) 0; Lymphocytes # (A) 0.3 k/uL (1.0-4.8); Lymphocytes % (A) 3 %; MCH 30.4 pg (25.0-35.0); MCHC 34.9 g/dL (31.0-37.0); MCV 87.2 fL (80.0-100.0); Mean Platelet Volume 8.7; Monocytes # (A) 0.2 k/uL (0-1.0); Monocytes % (A) 2 %; Neutrophils # (A) 9.3 k/uL (1.3-7.7); Neutrophils % (A) 94 %; RBC 3.49 m/uL (4.30-5.90); RDW 13.7 % (11.5-15.5); WBC 9.8 k/uL (3.8-10.6); WBC (Perox) 9.87
[2016-08-21 01:34] LABS: Glucose,Whole Blood 132 mg/dL (75-99)
[2016-08-21] MEDS: CLEVIDIPINE BUTYRATE 25 MG in EMPTY BAG 1 BAG IV SCH ×5 (02:02→21:34)
[2016-08-21 03:57] LABS: Glucose,Whole Blood 120 mg/dL (75-99)
[2016-08-21] MEDS ORDERED: CLEVIDIPINE BUTYRATE 25 MG/50 ML VIAL IV ONE (04:20)
[2016-08-21] MEDS: ACETAMINOPHEN IV (For NPO) 1,000 MG in EMPTY BAG 1 BAG IVPB SCH ×3 (05:12→18:32)
[2016-08-21 05:17] LABS: Glucose,Whole Blood 89 mg/dL (75-99)
[2016-08-21 05:27] LABS: Basophils % (A) 0 %; CH 30.2; CHCM 35.5; Eosinophils % (A) 0 %; HDW 3.03; HGB 10.7 gm/dL (13.0-17.5); Luc # (Auto) 0.02; Luc % (Auto) 0; Lymphocytes # (A) 0.5 k/uL (1.0-4.8); Lymphocytes % (A) 4 %; MCH 29.6 pg (25.0-35.0); MCHC 34.7 g/dL (31.0-37.0); MCV 85.4 fL (80.0-100.0); Mean Platelet Volume 7.8; Monocytes # (A) 0.2 k/uL (0-1.0); Monocytes % (A) 2 %; Neutrophils # (A) 11.3 k/uL (1.3-7.7); Neutrophils % (A) 94 %; RBC 3.63 m/uL (4.30-5.90); RDW 13.7 % (11.5-15.5); WBC (Perox) 12.15
[2016-08-21 05:38] LABS: ALT 34 U/L (21-72); AST 34 U/L (17-59); Alkaline Phosphatase 32 U/L (38-126); Anion Gap 11 mmol/L; Blood Urea Nitrogen 17 mg/dL (9-20); Calcium 8.9 mg/dL (8.4-10.2); Carbon Dioxide 22 mmol/L (22-30); Chloride 109 mmol/L (98-107); Glucose 116 mg/dL (74-99); Magnesium 2.4 mg/dL (1.6-2.3); Non-African American GFR(MDRD) >60 (>60 ml/min/1.73 sqM); Phosphorous 3.2 mg/dL (2.5-4.5); Potassium 4.2 mmol/L (3.5-5.1); Sodium 142 mmol/L (137-145); Total Bilirubin 0.5 mg/dL (0.2-1.3); Total Protein 5.6 g/dL (6.3-8.2)
[2016-08-21 06:19] LABS: Glucose,Whole Blood 137 mg/dL (75-99)
[2016-08-21 07:02] LABS: Glucose,Whole Blood 144 mg/dL (75-99)
--- NOTE | 2016-08-21 07:57 | XR ---
EXAMINATION TYPE: XR chest 1V portable DATE OF EXAM: 08/21/2016 6:28 AM COMPARISON: 08/20/2016 HISTORY: Postop TECHNIQUE: Single frontal view of the chest is obtained. FINDINGS: ET and NG tube removed. [place]-Tosin catheter tip overlying proximal pulmonary outflow tract. Bilateral chest tube seen with mediastinal drain. Postsurgical changes noted. Diffuse interstitial p attern seen. Tiny bilateral effusions. Subsegmental consolidation in the left likely in the basis of postoperative atelectasis. IMPRESSION: 1. Postoperative changes with subsegmental areas more typical of postoperative atelectasis..
[2016-08-21] MEDS: HEPARIN SODIUM,PORCINE 5,000 UNIT/ML 1 ML VIAL SQ SCH ×3 (08:08→23:09)
[2016-08-21] MEDS: CLOPIDOGREL 75 MG TAB PO SCH (08:09)
[2016-08-21] MEDS: ATORVASTATIN 40 MG TAB PO SCH (08:09)
--- NOTE | 2016-08-21 08:09 | OP ---
DATE OF SERVICE: 08/20/2016 SURGEON: Bobby Cox MD MANAGER REGIONAL: 1. LACEY Bosch. 2. LACEY Regalado PREOPERATIVE DIAGNOSIS: Coronary artery disease. POSTOPERATIVE DIAGNOSIS: Coronary artery disease. OPERATION: 1. Coronary artery bypass grafting x4 vessels (Left internal mammary artery to left anterior descending artery, saphenous vein graft to diagonal artery, saphenous vein graft to obtuse marginal artery, saphenous vein graft to posterior descending artery). 2. Endoscopic vein harvest left greater saphenous vein. 3. Epiaortic ultrasound. 4. Transesophageal echocardiogram. ANESTHESIA: General. ESTIMATED BLOOD LOSS: SPECIMENS: None. COMPLICATIONS: None. OPERATIVE FINDINGS: INDICATION: The patient is a 51-year-old male with a history of hypertension, hyperlipidemia, and diabetes mellitus who presented to the hospital with chest pain. Stress test was found to be abnormal. Cardiac catheterization revealed multivessel coronary artery disease. A coronary artery bypass was recommended. The risks, benefits and alternatives of this procedure were discussed with the patient. All questions were answered. Consent was obtained. FINDINGS: The left internal mammary artery was a good conduit with brisk flow. The saphenous vein was good conduit. All coronary arteries were heavily and diffusely calcified. The LAD measured 1.5 mm. The posterior descending artery measured 1.3 mm. The diagonal artery measured 1.3 mm. The obtuse marginal artery measured 1.3 mm. PROCEDURE IN DETAIL: The patient was taken to the operating room and placed supine on the operating table. After induction of general anesthesia, he was prepped and draped in the usual sterile fashion. Preoperative transesophageal echocardiogram confirmed a normal ejection fraction with trace to mild mitral regurgitation. A median sternotomy was performed. The left internal mammary artery was harvested in standard fashion taking care to clip all branches. Intravenous heparin was administered and the vessel was transected distally revealing brisk flow. Simultaneously greater saphenous vein was harvested from the left lower extremity using endoscopic technique. All branches were tied. Both the mammary artery and the saphenous vein were good conduits. A pericardial cradle was created. The ascending aorta was palpated. No significant calcific disease was appreciated. Epiaortic ultrasound was then performed on the ascending aorta and no atheromatous disease or calcified plaques were identified. An arterial cannula was placed in the distal ascending aorta. A venous cannula was placed through the right atrial appendage and directed into the IVC. Both antegrade and retrograde catheters were placed as well. The patient was placed on cardiopulmonary bypass with good decompression of the heart. The aortic crossclamp was applied. Cold blood potassium cardioplegia was delivered in both antegrade and retrograde fashion to achieve arrest of the heart. Of note, cardioplegia was delivered every 15 to 20 minutes while the patient remained under crossclamp. Began by inspecting the inferior wall. The right coronary artery was palpated. It was heavily calcified. Posterior descending artery was identified. A soft spot for bypass was noted. A small arteriotomy was created. This vessel accepted a 1.0 mm probe both proximally and distally. Using saphenous vein in a reverse fashion, an end-to-side anastomosis was created. This was performed using running 7-0 Prolene suture. The graft was hemostatic and had good flow. Next, the lateral wall was inspected. The obtuse marginal artery was identified. A small arteriotomy was created. This vessel accepted a 1 mm probe distally. Using saphenous vein in a reverse fashion, an end-to-side anastomosis was created. This was performed using running 7-0 Prolene suture. The graft was hemostatic and had good flow. Next, the diagonal artery was identified. A small arteriotomy was created. It accepted a 1 mm probe. Using saphenous vein in a reverse fashion, an end-to-side anastomosis was created. This was performed using running 7-0 Prolene suture. The graft was hemostatic and had good flow. Finally, the left anterior descending artery was identified. It contained diffuse calcific disease. A soft spot for bypass was noted in its midsection. A small arteriotomy was created. This vessel accepted a 1.5 mm probe. Using the left internal mammary artery, an end-to-side anastomosis was created. This was performed using running 8-0 Prolene suture. The graft was hemostatic. The mammary pedicles intact down to the anterior surface of the heart. Attention was then turned to the proximal anastomoses. These were performed at an end-to-side fashion using running 6-0 Prolene sutures. One liter of warm blood was administered in a retrograde fashion. Lidocaine and magnesium were administered as well. The aortic crossclamp was removed. The grafts were de-aired in the standard fashion. All distal anastomoses were inspected and appeared to be hemostatic. The retrograde catheter was removed. Temporary atrial and ventricular pacer wires were placed and brought through the skin. The patient was weaned off cardiopulmonary bypass. He without difficulty. The antegrade catheter was removed. The venous cannula was removed. Follow-up transesophageal echocardiogram confirmed good movement of all ferraro and a preserved ejection fraction. Protamine was administered. There were no adverse reactions. The arterial cannula was removed. The mediastinum was then copiously irrigated with antibiotic solution. All surgical sites were inspected and appeared to be hemostatic. Reinforcement sutures were placed as needed. Soft tissue was reapproximated over the ascending aorta as well as over the apex of the heart. Straight 32 [place] chest tubes were placed in both left and right pleural spaces. A straight 32 [place] chest tube was placed in the mediastinum. These were all secured to the skin using sutures. Sternum was then reapproximated using stainless steel wires in a [id number] fashion. The remainder of the wound was closed in layers. A sterile dressing was applied. The patient appeared to tolerate the procedure well. There were no immediate complications. He returned to the ICU in critical but stable condition. [facility]
--- NOTE | 2016-08-21 08:17 | CONS ---
DATE OF CONSULTATION: 08/20/2016. REASON FOR CONSULTATION: Medical management requested by Dr. Cox. CONSULTATION: This is a 51-year-old patient of Dr. Jesus who had a positive stress test and was found to have a triple-vessel coronary artery disease. Underwent coronary bypass. I do not have the full operative note. Patient has two pleural and one ( ) drain in place. Patient was just extubated and is following commands. The patient drips include IV Cleviprex, insulin, nitro and Lactated ringers. Telemetry shows sinus rhythm. Blood pressure is reasonable. Chronic stable medical conditions include diabetes, hypertension, hyperlipidemia REVIEW OF SYSTEMS: The patient is rather tired this morning, unable to give much of a history. Past history of diabetes, hypertension, hyperlipidemia, coronary artery disease. PAST SURGICAL HISTORY: Cardiac catheterization. SOCIAL HISTORY: Does not smoke. Alcohol occasionally. Not able to get much of history currently. FAMILY HISTORY: Coronary artery disease. HOME MEDICATIONS: 1. Glucotrol 10 mg breakfast. 2. Nitrostat 0.4 sublingual q.5 p.r.n. 3. Lopressor 25 p.o. daily. 4. Lisinopril 10 mg p.o. daily. 5. Farxiga 10 mg p.o. daily. 6. Lipitor 10 mg daily. 7. Aspirin 81 mg p.o. daily. ALLERGIES: None. On examination, afebrile, pulse 82, respiration 18, blood pressure 122/54, pulse ox 98%. General appearance, average build, lying in bed, rather tired -appearing. Just extubated. Eyes pupils equal. Conjunctivae normal. HEENT: External appearance of nose and ears normal. Oral cavity normal. NECK: JVD unable to assess. Mass not palpable. RESPIRATORY: Effort normal and slightly decreased breath sounds. CARDIOVASCULAR: First and second sounds normal. No edema. ABDOMEN: Soft, nontender. Liver and spleen not palpable. Chest tubes in place. LYMPHATIC: No lymph nodes palpable in the neck and axilla. PSYCHIATRY: Patient following some simple commands. NEUROLOGICAL: Pupils equal. No facial asymmetry. INVESTIGATIONS: White count 10.4, hemoglobin 10.1 down from 15, platelets 133. Accu-Cheks are noted. ASSESSMENT: 1. Status post coronary artery bypass, I do not to have the full operative report. 2. Diabetes mellitus type 2 chronically on insulin drip on oral hypoglycemic. 3. Essential hypertension. 4. Hyperlipidemia. 5. Acute blood loss anemia as expected from surgery. 6. Thrombocytopenia, dilutional. PLAN: Continue current medication and treatment plan, including patient being on Cleviprex, insulin, nitro ( ). Will follow along. Thank you Dr. Cox.
[2016-08-21 08:24] LABS: Glucose,Whole Blood 154 mg/dL (75-99)
[2016-08-21] MEDS: IPRATROPIUM-ALBUTEROL 3 ML NEB INHALATION PRN (08:44)
[2016-08-21] MEDS ORDERED: METOPROLOL TARTRATE 25 MG TAB PO SCH (09:00)
[2016-08-21] MEDS ORDERED: PANTOPRAZOLE 40 MG/10 ML VIAL IVP SCH (09:00)
[2016-08-21] MEDS: ASPIRIN 325 MG TAB PO SCH (10:03)
[2016-08-21 10:09] LABS: Glucose,Whole Blood 172 mg/dL (75-99)
--- NOTE | 2016-08-21 11:11 | P.PN ---
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 Cardiac catheterization showed multivessel coronary artery disease. Patient was basically relatively asymptomatic except for occasional chest pains and fatigue. Today, the patient underwent myocardial revascularization, postoperatively he was on mechanical ventilation, and I was asked to see him on consultation. Patient is on mechanical ventilation, his chest x-ray was reviewed and showed mostly postoperative changes. ABG was reviewed and events settings were addressed accordingly. Patient was reevaluated today on 08/21/2016, extubated last night uneventfully, presently on nasal cannula, in no distress. Relatively asymptomatic. Chest x- ray is reassuring except for minimal bibasilar atelectasis. No evidence of congestive heart failure or interstitial edema. No evidence of pneumonia. No evidence of pneumothorax. Objective - Vital Signs Vital signs: Vital Signs Temp 98.1 F 08/21/16 06:56 Pulse 73 08/21/16 11:00 Resp 22 08/21/16 11:00 BP 134/64 08/21/16 11:00 Pulse Ox 96 08/21/16 11:00 Intake & Output 08/20/16 08/21/16 08/21/16 18:59 06:59 18:59 Intake Total 743.214 0731.101 113.786 Output Total 3760 1761 110 Balance -3320.564 -725.899 3.786 Weight 87.3 kg Intake: IV 433 870 50 ACETAMINOPHEN IV (For NPO 100 100 ) 1,000 mg In Empty Bag 1 bag @ 400 mls/hr IVPB Q6HR [facility] Rx#:[id number] Lactated Ringers 1,000 ml 200 570 50 @ 50 mls/hr IV .Q20H [facility] Rx#:[id number] Potassium Chloride 10 meq 100 Lidocaine 2% Inj 10 mg In Sodium Chloride 0.9% 100 ml @ 100 mls/hr IV Q1HR [facility] Rx#:[id number] ceFAZolin 2 gm In Sodium 100 100 Chloride 0.9% 100 ml @ 100 mls/hr IVPB Q8HR [facility] Rx#:[id number] Intake, IV Titration 6.436 165.101 63.786 Amount Clevidipine Butyrate 25 2.733 88.834 56.667 mg In Empty Bag 1 bag @ 1 MG/HR 2 mls/hr IV .Q24H [facility] Rx#:[id number] Insulin Regular 100 unit 3.703 29.262 7.119 In Sodium Chloride 0.9% 100 ml @ Per Protocol IV .Q0M [facility] Rx#:[id number] Nitroglycerin-D5w Pmx 50 20.05 mg In Dextrose/Water 1 250ml.bag @ 5 MCG/MIN 1.5 mls/hr IV .Q24H [facility] Rx#: [id number] Propofol 500 mg In Empty 26.955 Bag 1 bag @ Titrate IV . Q0M [facility] Rx#:[id number] Output: Chest Tube Drainage 175 496 Chest Tube Bilateral 85 165 Lateral Chest Mediastinal 90 331 Urine 1785 1265 110 Estimated Blood Loss 1800 Other: Voiding Method Indwelling Catheter Indwelling Catheter ABP, PAP, CO, CI - Last Documented Arterial Blood Pressure 141/51 Pulmonary Artery Pressure 26/8 Cardiac Output 7.7 Cardiac Index 4 - Exam Physical Exam: Revealed a 51-year-old white male on nasal cannula in no distress , patient was extubated last night HEENT:[Neck is supple.] [No neck masses.] [No thyromegaly.] [No JVD.] Chest: [Clear throughout, no crackles, no rhonchi, no wheezes.] Cardiac Exam: [Normal S1 and S2, no S3 gallop, no murmur positive pericardial rub.] Abdomen: [Soft, nontender, no megaly, no rebound, no guarding, normal bowel sounds.] Extremities: [No clubbing, no edema, no cyanosis.] Neurological Exam: No gross focal neurologic deficit - Labs CBC & Chem 7: 08/21/16 05:16 08/21/16 05:16 Labs: Abnormal Lab Results - Last 24 Hours (Table) 08/14/16 08/20/16 08/20/16 Range/Units 13:28 11:26 12:00 WBC (3.8-10.6) k/uL RBC (4.30-5.90) m/uL Hgb (13.0-17.5) gm/dL Hct (39.0-53.0) % Plt Count (150-450) k/uL Neutrophils # (1.3-7.7) k/uL Lymphocytes # (1.0-4.8) k/uL PT (9.0-12.0) sec APTT (22.0-30.0) sec ABG pCO2 (35-45) mmHg ABG pO2 (83-108) mmHg ABG Total CO2 (19-24) mmol/L ABG O2 Saturation (94-97) % Chloride (98-107) mmol/L Glucose (74-99) mg/dL POC Glucose (mg/dL) 218 H 234 H (75-99) mg/dL Calcium (8.4-10.2) mg/dL Magnesium (1.6-2.3) mg/dL Alkaline Phosphatase (38-126) U/L Total Protein (6.3-8.2) g/dL Albumin (3.5-5.0) g/dL Crossmatch See Detail 08/20/16 08/20/16 08/20/16 Range/Units 12:31 14:17 14:58 WBC (3.8-10.6) k/uL RBC (4.30-5.90) m/uL Hgb (13.0-17.5) gm/dL Hct (39.0-53.0) % Plt Count (150-450) k/uL Neutrophils # (1.3-7.7) k/uL Lymphocytes # (1.0-4.8) k/uL PT (9.0-12.0) sec APTT (22.0-30.0) sec ABG pCO2 (35-45) mmHg ABG pO2 (83-108) mmHg ABG Total CO2 (19-24) mmol/L ABG O2 Saturation (94-97) % Chloride 109 H (98-107) mmol/L Glucose 111 H (74-99) mg/dL POC Glucose (mg/dL) 217 H 201 H (75-99) mg/dL Calcium 8.1 L (8.4-10.2) mg/dL Magnesium 2.7 H (1.6-2.3) mg/dL Alkaline Phosphatase 24 L (38-126) U/L Total Protein 4.9 L (6.3-8.2) g/dL Albumin 3.2 L (3.5-5.0) g/dL Crossmatch 08/20/16 08/20/16 08/20/16 Range/Units 15:22 15:25 15:25 WBC (3.8-10.6) k/uL RBC 2.89 L (4.30-5.90) m/uL Hgb 8.6 L D (13.0-17.5) gm/dL Hct 24.3 L (39.0-53.0) % Plt Count 103 L (150-450) k/uL Neutrophils # (1.3-7.7) k/uL Lymphocytes # 0.7 L (1.0-4.8) k/uL PT 13.0 H (9.0-12.0) sec APTT 35.8 H (22.0-30.0) sec ABG pCO2 (35-45) mmHg ABG pO2 (83-108) mmHg ABG Total CO2 (19-24) mmol/L ABG O2 Saturation (94-97) % Chloride (98-107) mmol/L Glucose (74-99) mg/dL POC Glucose (mg/dL) 119 H (75-99) mg/dL Calcium (8.4-10.2) mg/dL Magnesium (1.6-2.3) mg/dL Alkaline Phosphatase (38-126) U/L Total Protein (6.3-8.2) g/dL Albumin (3.5-5.0) g/dL Crossmatch 08/20/16 08/20/16 08/20/16 Range/Units 15:48 16:00 18:10 WBC (3.8-10.6) k/uL RBC 3.36 L (4.30-5.90) m/uL Hgb 10.1 L (13.0-17.5) gm/dL Hct 28.4 L (39.0-53.0) % Plt Count 133 L (150-450) k/uL Neutrophils # 9.1 H (1.3-7.7) k/uL Lymphocytes # 0.7 L (1.0-4.8) k/uL PT (9.0-12.0) sec APTT (22.0-30.0) sec ABG pCO2 (35-45) mmHg ABG pO2 275 H (83-108) mmHg ABG Total CO2 25 H (19-24) mmol/L ABG O2 Saturation 100.0 H (94-97) % Chloride (98-107) mmol/L Glucose (74-99) mg/dL POC Glucose (mg/dL) 104 H (75-99) mg/dL Calcium (8.4-10.2) mg/dL Magnesium (1.6-2.3) mg/dL Alkaline Phosphatase (38-126) U/L Total Protein (6.3-8.2) g/dL Albumin (3.5-5.0) g/dL Crossmatch 08/20/16 08/20/16 08/20/16 Range/Units 18:10 19:13 20:18 WBC (3.8-10.6) k/uL RBC (4.30-5.90) m/uL Hgb (13.0-17.5) gm/dL Hct (39.0-53.0) % Plt Count (150-450) k/uL Neutrophils # (1.3-7.7) k/uL Lymphocytes # (1.0-4.8) k/uL PT (9.0-12.0) sec APTT (22.0-30.0) sec ABG pCO2 (35-45) mmHg ABG pO2 (83-108) mmHg ABG Total CO2 (19-24) mmol/L ABG O2 Saturation (94-97) % Chloride (98-107) mmol/L Glucose (74-99) mg/dL POC Glucose (mg/dL) 126 H 135 H 169 H (75-99) mg/dL Calcium (8.4-10.2) mg/dL Magnesium (1.6-2.3) mg/dL Alkaline Phosphatase (38-126) U/L Total Protein (6.3-8.2) g/dL Albumin (3.5-5.0) g/dL Crossmatch 08/20/16 08/20/16 08/20/16 Range/Units 21:00 21:54 23:19 WBC (3.8-10.6) k/uL RBC (4.30-5.90) m/uL Hgb (13.0-17.5) gm/dL Hct (39.0-53.0) % Plt Count (150-450) k/uL Neutrophils # (1.3-7.7) k/uL Lymphocytes # (1.0-4.8) k/uL PT (9.0-12.0) sec APTT (22.0-30.0) sec ABG pCO2 34 L (35-45) mmHg ABG pO2 64 L (83-108) mmHg ABG Total CO2 (19-24) mmol/L ABG O2 Saturation 93.0 L (94-97) % Chloride (98-107) mmol/L Glucose (74-99) mg/dL POC Glucose (mg/dL) 166 H 161 H (75-99) mg/dL Calcium (8.4-10.2) mg/dL Magnesium (1.6-2.3) mg/dL Alkaline Phosphatase (38-126) U/L Total Protein (6.3-8.2) g/dL Albumin (3.5-5.0) g/dL Crossmatch 08/21/16 08/21/16 08/21/16 Range/Units 00:12 00:30 01:33 WBC (3.8-10.6) k/uL RBC 3.49 L (4.30-5.90) m/uL Hgb 10.6 L (13.0-17.5) gm/dL Hct 30.4 L (39.0-53.0) % Plt Count 127 L (150-450) k/uL Neutrophils # 9.3 H (1.3-7.7) k/uL Lymphocytes # 0.3 L (1.0-4.8) k/uL PT (9.0-12.0) sec APTT (22.0-30.0) sec ABG pCO2 (35-45) mmHg ABG pO2 (83-108) mmHg ABG Total CO2 (19-24) mmol/L ABG O2 Saturation (94-97) % Chloride (98-107) mmol/L Glucose (74-99) mg/dL POC Glucose (mg/dL) 153 H 132 H (75-99) mg/dL Calcium (8.4-10.2) mg/dL Magnesium (1.6-2.3) mg/dL Alkaline Phosphatase (38-126) U/L Total Protein (6.3-8.2) g/dL Albumin (3.5-5.0) g/dL Crossmatch 05/26/17 05/26/17 05/26/17 Range/Units 03:56 05:16 05:16 WBC 12.0 H (3.8-10.6) k/uL RBC 3.63 L (4.30-5.90) m/uL Hgb 10.7 L (13.0-17.5) gm/dL Hct 31.0 L (39.0-53.0) % Plt Count 135 L (150-450) k/uL Neutrophils # 11.3 H (1.3-7.7) k/uL Lymphocytes # 0.5 L (1.0-4.8) k/uL PT (9.0-12.0) sec APTT (22.0-30.0) sec ABG pCO2 (35-45) mmHg ABG pO2 (83-108) mmHg ABG Total CO2 (19-24) mmol/L ABG O2 Saturation (94-97) % Chloride 109 H (98-107) mmol/L Glucose 116 H (74-99) mg/dL POC Glucose (mg/dL) 120 H (75-99) mg/dL Calcium (8.4-10.2) mg/dL Magnesium 2.4 H (1.6-2.3) mg/dL Alkaline Phosphatase 32 L (38-126) U/L Total Protein 5.6 L (6.3-8.2) g/dL Albumin (3.5-5.0) g/dL Crossmatch 08/21/16 08/21/16 08/21/16 Range/Units 06:17 07:00 08:22 WBC (3.8-10.6) k/uL RBC (4.30-5.90) m/uL Hgb (13.0-17.5) gm/dL Hct (39.0-53.0) % Plt Count (150-450) k/uL Neutrophils # (1.3-7.7) k/uL Lymphocytes # (1.0-4.8) k/uL PT (9.0-12.0) sec APTT (22.0-30.0) sec ABG pCO2 (35-45) mmHg ABG pO2 (83-108) mmHg ABG Total CO2 (19-24) mmol/L ABG O2 Saturation (94-97) % Chloride (98-107) mmol/L Glucose (74-99) mg/dL POC Glucose (mg/dL) 137 H 144 H 154 H (75-99) mg/dL Calcium (8.4-10.2) mg/dL Magnesium (1.6-2.3) mg/dL Alkaline Phosphatase (38-126) U/L Total Protein (6.3-8.2) g/dL Albumin (3.5-5.0) g/dL Crossmatch 08/21/16 Range/Units 10:08 WBC (3.8-10.6) k/uL RBC (4.30-5.90) m/uL Hgb (13.0-17.5) gm/dL Hct (39.0-53.0) % Plt Count (150-450) k/uL Neutrophils # (1.3-7.7) k/uL Lymphocytes # (1.0-4.8) k/uL PT (9.0-12.0) sec APTT (22.0-30.0) sec ABG pCO2 (35-45) mmHg ABG pO2 (83-108) mmHg ABG Total CO2 (19-24) mmol/L ABG O2 Saturation (94-97) % Chloride (98-107) mmol/L Glucose (74-99) mg/dL POC Glucose (mg/dL) 172 H (75-99) mg/dL Calcium (8.4-10.2) mg/dL Magnesium (1.6-2.3) mg/dL Alkaline Phosphatase (38-126) U/L Total Protein (6.3-8.2) g/dL Albumin (3.5-5.0) g/dL Crossmatch Assessment and Plan Plan: Impression: 1 status post CABG for multiple vessel coronary artery disease, postoperative day #1, 2 history of diabetes, hypercholesterolemia, hypertension. Recommendation: Continue present treatment plan including incentive spirometry, bronchodilators, early ambulation, we'll follow. Time with Patient: Less than 30
[2016-08-21 11:13] LABS: Glucose,Whole Blood 166 mg/dL (75-99)
[2016-08-21 12:15] LABS: Glucose,Whole Blood 129 mg/dL (75-99)
--- NOTE | 2016-08-21 13:05 | P.PN ---
<Rama Bryant - Last Filed: 08/21/16 12:57> Subjective Principal diagnosis: Coronary artery disease. POD #1 coronary artery bypass grafting 4 vessels (left internal mammary artery to left anterior descending artery, saphenous vein graft to diagonal artery, saphenous vein graft to obtuse marginal artery, saphenous vein graft to posterior descending artery). Endoscopic vein harvest left greater saphenous vein. Epi-aortic ultrasound. Intraoperative transesophageal echocardiogram. Patient currently sitting up in a recliner in no apparent distress. Family at bedside. Denies chest pain/shortness of breath. Objective - Vital Signs Vital signs: Vital Signs Temp 98.6 F 08/21/16 12:00 Pulse 65 08/21/16 12:00 Resp 18 08/21/16 12:00 BP 134/64 08/21/16 12:00 Pulse Ox 97 08/21/16 12:00 Intake & Output 08/20/16 08/21/16 08/21/16 18:59 06:59 18:59 Intake Total 867.023 6549.101 559.302 Output Total 3760 1761 745 Balance -3320.564 -725.899 -185.698 Weight 87.3 kg Intake: IV 433 870 460 ACETAMINOPHEN IV (For NPO 100 100 100 ) 1,000 mg In Empty Bag 1 bag @ 400 mls/hr IVPB Q6HR [facility] Rx#:[id number] Lactated Ringers 1,000 ml 200 570 260 @ 20 mls/hr IV .Q24H [facility] Rx#:[id number] Potassium Chloride 10 meq 100 Lidocaine 2% Inj 10 mg In Sodium Chloride 0.9% 100 ml @ 100 mls/hr IV Q1HR [facility] Rx#:[id number] ceFAZolin 2 gm In Sodium 100 100 100 Chloride 0.9% 100 ml @ 100 mls/hr IVPB Q8HR [facility] Rx#:[id number] Intake, IV Titration 6.436 165.101 99.302 Amount Clevidipine Butyrate 25 2.733 88.834 77.933 mg In Empty Bag 1 bag @ 1 MG/HR 2 mls/hr IV .Q24H [facility] Rx#:[id number] Insulin Regular 100 unit 3.703 29.262 12.769 In Sodium Chloride 0.9% 100 ml @ Per Protocol IV .Q0M [facility] Rx#:[id number] Nitroglycerin-D5w Pmx 50 20.05 8.6 mg In Dextrose/Water 1 250ml.bag @ 5 MCG/MIN 1.5 mls/hr IV .Q24H [facility] Rx#: [id number] Propofol 500 mg In Empty 26.955 Bag 1 bag @ Titrate IV . Q0M [facility] Rx#:[id number] Output: Chest Tube Drainage 175 496 150 Chest Tube Bilateral 85 165 60 Lateral Chest Mediastinal 90 331 90 Urine 1785 1265 595 Estimated Blood Loss 1800 Other: Voiding Method Indwelling Catheter Indwelling Catheter ABP, PAP, CO, CI - Last Documented Arterial Blood Pressure 116/48 Pulmonary Artery Pressure 26/8 Cardiac Output 7.7 Cardiac Index 4 - Constitutional General appearance: Present: cooperative, no acute distress - Respiratory Details: Lungs sounds diminished bilaterally. Respirations even, nonlabored. Currently on room air with oxygen saturation 98%. Able to achieve 750 mL on his incentive spirometer. Bilateral pleural chest tubes to -20 cm wall suction, drained 130 mL serosanguineous fluid overnight, 270 mL since surgery. Mediastinal chest tubes to -20 cm wall suction, drained 220 mL serous and was fluid overnight, 420 mL in 24 hours. Minimal air leak pleural chest tubes. - Cardiovascular Details: S1, S2 present. Regular rate and rhythm, normal sinus rhythm on telemetry. Sternum stable. No edema. Heart hugger in place with patient demonstrating appropriate use. Teds/SCDs present. A/V epicardial pacemaker wires present, grounded. - Gastrointestinal Gastrointestinal Comment(s): Abdomen soft, nontender, nondistended. Active bowel sounds 4 quadrants. Tolerating diet. - Genitourinary Genitourinary Comment(s): Raines present draining clear, yellow urine. Urine output 75-230 mL/h. - Integumentary Integumentary Comment(s): Anterior chest incision well approximated and covered with dry intact dressing. - Musculoskeletal Musculoskeletal: Present: gait normal, strength equal bilaterally - Psychiatric Psychiatric: Present: A&O x's 3, appropriate affect, intact judgment & insight - Allied health notes Allied health notes reviewed: nursing - Labs CBC & Chem 7: 08/21/16 05:16 08/21/16 05:16 Labs: Abnormal Lab Results - Last 24 Hours (Table) 08/14/16 08/20/16 08/20/16 Range/Units 13:28 14:17 14:58 WBC (3.8-10.6) k/uL RBC (4.30-5.90) m/uL Hgb (13.0-17.5) gm/dL Hct (39.0-53.0) % Plt Count (150-450) k/uL Neutrophils # (1.3-7.7) k/uL Lymphocytes # (1.0-4.8) k/uL PT (9.0-12.0) sec APTT (22.0-30.0) sec ABG pCO2 (35-45) mmHg ABG pO2 (83-108) mmHg ABG Total CO2 (19-24) mmol/L ABG O2 Saturation (94-97) % Chloride 109 H (98-107) mmol/L Glucose 111 H (74-99) mg/dL POC Glucose (mg/dL) 201 H (75-99) mg/dL Calcium 8.1 L (8.4-10.2) mg/dL Magnesium 2.7 H (1.6-2.3) mg/dL Alkaline Phosphatase 24 L (38-126) U/L Total Protein 4.9 L (6.3-8.2) g/dL Albumin 3.2 L (3.5-5.0) g/dL Crossmatch See Detail 08/20/16 08/20/16 08/20/16 Range/Units 15:22 15:25 15:25 WBC (3.8-10.6) k/uL RBC 2.89 L (4.30-5.90) m/uL Hgb 8.6 L D (13.0-17.5) gm/dL Hct 24.3 L (39.0-53.0) % Plt Count 103 L (150-450) k/uL Neutrophils # (1.3-7.7) k/uL Lymphocytes # 0.7 L (1.0-4.8) k/uL PT 13.0 H (9.0-12.0) sec APTT 35.8 H (22.0-30.0) sec ABG pCO2 (35-45) mmHg ABG pO2 (83-108) mmHg ABG Total CO2 (19-24) mmol/L ABG O2 Saturation (94-97) % Chloride (98-107) mmol/L Glucose (74-99) mg/dL POC Glucose (mg/dL) 119 H (75-99) mg/dL Calcium (8.4-10.2) mg/dL Magnesium (1.6-2.3) mg/dL Alkaline Phosphatase (38-126) U/L Total Protein (6.3-8.2) g/dL Albumin (3.5-5.0) g/dL Crossmatch 08/20/16 08/20/16 08/20/16 Range/Units 15:48 16:00 18:10 WBC (3.8-10.6) k/uL RBC 3.36 L (4.30-5.90) m/uL Hgb 10.1 L (13.0-17.5) gm/dL Hct 28.4 L (39.0-53.0) % Plt Count 133 L (150-450) k/uL Neutrophils # 9.1 H (1.3-7.7) k/uL Lymphocytes # 0.7 L (1.0-4.8) k/uL PT (9.0-12.0) sec APTT (22.0-30.0) sec ABG pCO2 (35-45) mmHg ABG pO2 275 H (83-108) mmHg ABG Total CO2 25 H (19-24) mmol/L ABG O2 Saturation 100.0 H (94-97) % Chloride (98-107) mmol/L Glucose (74-99) mg/dL POC Glucose (mg/dL) 104 H (75-99) mg/dL Calcium (8.4-10.2) mg/dL Magnesium (1.6-2.3) mg/dL Alkaline Phosphatase (38-126) U/L Total Protein (6.3-8.2) g/dL Albumin (3.5-5.0) g/dL Crossmatch 08/20/16 08/20/16 08/20/16 Range/Units 18:10 19:13 20:18 WBC (3.8-10.6) k/uL RBC (4.30-5.90) m/uL Hgb (13.0-17.5) gm/dL Hct (39.0-53.0) % Plt Count (150-450) k/uL Neutrophils # (1.3-7.7) k/uL Lymphocytes # (1.0-4.8) k/uL PT (9.0-12.0) sec APTT (22.0-30.0) sec ABG pCO2 (35-45) mmHg ABG pO2 (83-108) mmHg ABG Total CO2 (19-24) mmol/L ABG O2 Saturation (94-97) % Chloride (98-107) mmol/L Glucose (74-99) mg/dL POC Glucose (mg/dL) 126 H 135 H 169 H (75-99) mg/dL Calcium (8.4-10.2) mg/dL Magnesium (1.6-2.3) mg/dL Alkaline Phosphatase (38-126) U/L Total Protein (6.3-8.2) g/dL Albumin (3.5-5.0) g/dL Crossmatch 08/20/16 08/20/16 08/20/16 Range/Units 21:00 21:54 23:19 WBC (3.8-10.6) k/uL RBC (4.30-5.90) m/uL Hgb (13.0-17.5) gm/dL Hct (39.0-53.0) % Plt Count (150-450) k/uL Neutrophils # (1.3-7.7) k/uL Lymphocytes # (1.0-4.8) k/uL PT (9.0-12.0) sec APTT (22.0-30.0) sec ABG pCO2 34 L (35-45) mmHg ABG pO2 64 L (83-108) mmHg ABG Total CO2 (19-24) mmol/L ABG O2 Saturation 93.0 L (94-97) % Chloride (98-107) mmol/L Glucose (74-99) mg/dL POC Glucose (mg/dL) 166 H 161 H (75-99) mg/dL Calcium (8.4-10.2) mg/dL Magnesium (1.6-2.3) mg/dL Alkaline Phosphatase (38-126) U/L Total Protein (6.3-8.2) g/dL Albumin (3.5-5.0) g/dL Crossmatch 08/21/16 08/21/16 08/21/16 Range/Units 00:12 00:30 01:33 WBC (3.8-10.6) k/uL RBC 3.49 L (4.30-5.90) m/uL Hgb 10.6 L (13.0-17.5) gm/dL Hct 30.4 L (39.0-53.0) % Plt Count 127 L (150-450) k/uL Neutrophils # 9.3 H (1.3-7.7) k/uL Lymphocytes # 0.3 L (1.0-4.8) k/uL PT (9.0-12.0) sec APTT (22.0-30.0) sec ABG pCO2 (35-45) mmHg ABG pO2 (83-108) mmHg ABG Total CO2 (19-24) mmol/L ABG O2 Saturation (94-97) % Chloride (98-107) mmol/L Glucose (74-99) mg/dL POC Glucose (mg/dL) 153 H 132 H (75-99) mg/dL Calcium (8.4-10.2) mg/dL Magnesium (1.6-2.3) mg/dL Alkaline Phosphatase (38-126) U/L Total Protein (6.3-8.2) g/dL Albumin (3.5-5.0) g/dL Crossmatch 08/21/16 08/21/16 08/21/16 Range/Units 03:56 05:16 05:16 WBC 12.0 H (3.8-10.6) k/uL RBC 3.63 L (4.30-5.90) m/uL Hgb 10.7 L (13.0-17.5) gm/dL Hct 31.0 L (39.0-53.0) % Plt Count 135 L (150-450) k/uL Neutrophils # 11.3 H (1.3-7.7) k/uL Lymphocytes # 0.5 L (1.0-4.8) k/uL PT (9.0-12.0) sec APTT (22.0-30.0) sec ABG pCO2 (35-45) mmHg ABG pO2 (83-108) mmHg ABG Total CO2 (19-24) mmol/L ABG O2 Saturation (94-97) % Chloride 109 H (98-107) mmol/L Glucose 116 H (74-99) mg/dL POC Glucose (mg/dL) 120 H (75-99) mg/dL Calcium (8.4-10.2) mg/dL Magnesium 2.4 H (1.6-2.3) mg/dL Alkaline Phosphatase 32 L (38-126) U/L Total Protein 5.6 L (6.3-8.2) g/dL Albumin (3.5-5.0) g/dL Crossmatch 08/21/16 08/21/16 08/21/16 Range/Units 06:17 07:00 08:22 WBC (3.8-10.6) k/uL RBC (4.30-5.90) m/uL Hgb (13.0-17.5) gm/dL Hct (39.0-53.0) % Plt Count (150-450) k/uL Neutrophils # (1.3-7.7) k/uL Lymphocytes # (1.0-4.8) k/uL PT (9.0-12.0) sec APTT (22.0-30.0) sec ABG pCO2 (35-45) mmHg ABG pO2 (83-108) mmHg ABG Total CO2 (19-24) mmol/L ABG O2 Saturation (94-97) % Chloride (98-107) mmol/L Glucose (74-99) mg/dL POC Glucose (mg/dL) 137 H 144 H 154 H (75-99) mg/dL Calcium (8.4-10.2) mg/dL Magnesium (1.6-2.3) mg/dL Alkaline Phosphatase (38-126) U/L Total Protein (6.3-8.2) g/dL Albumin (3.5-5.0) g/dL Crossmatch 08/21/16 08/21/16 08/21/16 Range/Units 10:08 11:12 12:14 WBC (3.8-10.6) k/uL RBC (4.30-5.90) m/uL Hgb (13.0-17.5) gm/dL Hct (39.0-53.0) % Plt Count (150-450) k/uL Neutrophils # (1.3-7.7) k/uL Lymphocytes # (1.0-4.8) k/uL PT (9.0-12.0) sec APTT (22.0-30.0) sec ABG pCO2 (35-45) mmHg ABG pO2 (83-108) mmHg ABG Total CO2 (19-24) mmol/L ABG O2 Saturation (94-97) % Chloride (98-107) mmol/L Glucose (74-99) mg/dL POC Glucose (mg/dL) 172 H 166 H 129 H (75-99) mg/dL Calcium (8.4-10.2) mg/dL Magnesium (1.6-2.3) mg/dL Alkaline Phosphatase (38-126) U/L Total Protein (6.3-8.2) g/dL Albumin (3.5-5.0) g/dL Crossmatch - Imaging and Cardiology Chest x-ray: image reviewed Assessment and Plan (1) Coronary artery disease Status: Acute (2) Diabetes mellitus Status: Acute (3) Hyperlipidemia Status: Acute (4) Hypertension Status: Acute Plan: 1. Continue aspirin, statin, Plavix, heparin subcu. Will increase Lopressor to 25 mg 3 times a day. 2. Encourage incentive spirometry use. 3. Increase activity, out of bed to chair. Physical therapy to follow. 4. Ronald Schroeder. 5. GI/DVT prophylaxis. 6. Daily labs, chest x-rays. 7. More recommendations as patient progresses. Time with Patient: Greater than 30 <Bobby Cox - Last Filed: 08/21/16 17:21> Objective - Vital Signs Vital signs: Vital Signs Temp 98.6 F 08/21/16 16:00 Pulse 72 08/21/16 16:00 Resp 14 08/21/16 16:00 BP 134/64 08/21/16 12:00 Pulse Ox 94 L 08/21/16 16:00 Intake & Output 08/20/16 08/21/16 08/21/16 18:59 06:59 18:59 Intake Total 829.863 9445.101 1225.832 Output Total 3760 1761 965 Balance -3320.564 -725.899 260.832 Weight 87.3 kg Intake: IV 433 870 580 ACETAMINOPHEN IV (For NPO 100 100 100 ) 1,000 mg In Empty Bag 1 bag @ 400 mls/hr IVPB Q6HR [facility] Rx#:[id number] Lactated Ringers 1,000 ml 200 570 380 @ 20 mls/hr IV .Q24H [facility] Rx#:[id number] Potassium Chloride 10 meq 100 Lidocaine 2% Inj 10 mg In Sodium Chloride 0.9% 100 ml @ 100 mls/hr IV Q1HR [facility] Rx#:[id number] ceFAZolin 2 gm In Sodium 100 100 100 Chloride 0.9% 100 ml @ 100 mls/hr IVPB Q8HR [facility] Rx#:[id number] Intake, IV Titration 6.436 165.101 165.832 Amount Clevidipine Butyrate 25 2.733 88.834 85.800 mg In Empty Bag 1 bag @ 1 MG/HR 2 mls/hr IV .Q24H [facility] Rx#:[id number] Clevidipine Butyrate 25 50 mg In Empty Bag 1 bag @ Per Protocol IV .Q0M [facility] Rx#:[id number] Insulin Regular 100 unit 3.703 29.262 21.432 In Sodium Chloride 0.9% 100 ml @ Per Protocol IV .Q0M [facility] Rx#:[id number] Nitroglycerin-D5w Pmx 50 20.05 8.6 mg In Dextrose/Water 1 250ml.bag @ 5 MCG/MIN 1.5 mls/hr IV .Q24H [facility] Rx#: [id number] Propofol 500 mg In Empty 26.955 Bag 1 bag @ Titrate IV . Q0M [facility] Rx#:[id number] Oral 480 Output: Chest Tube Drainage 175 496 190 Chest Tube Bilateral 85 165 70 Lateral Chest Mediastinal 90 331 120 Urine 1785 1265 775 Estimated Blood Loss 1800 Other: Voiding Method Indwelling Catheter Indwelling Catheter Indwelling Catheter ABP, PAP, CO, CI - Last Documented Arterial Blood Pressure 135/51 Pulmonary Artery Pressure 26/8 Cardiac Output 7.7 Cardiac Index 4 - Labs CBC & Chem 7: 08/21/16 05:16 08/21/16 05:16 Labs: Abnormal Lab Results - Last 24 Hours (Table) 08/14/16 08/20/16 08/20/16 Range/Units 13:28 18:10 18:10 WBC (3.8-10.6) k/uL RBC 3.36 L (4.30-5.90) m/uL Hgb 10.1 L (13.0-17.5) gm/dL Hct 28.4 L (39.0-53.0) % Plt Count 133 L (150-450) k/uL Neutrophils # 9.1 H (1.3-7.7) k/uL Lymphocytes # 0.7 L (1.0-4.8) k/uL ABG pCO2 (35-45) mmHg ABG pO2 (83-108) mmHg ABG O2 Saturation (94-97) % Chloride (98-107) mmol/L Glucose (74-99) mg/dL POC Glucose (mg/dL) 126 H (75-99) mg/dL Magnesium (1.6-2.3) mg/dL Alkaline Phosphatase (38-126) U/L Total Protein (6.3-8.2) g/dL Crossmatch See Detail 08/20/16 08/20/16 08/20/16 Range/Units 19:13 20:18 21:00 WBC (3.8-10.6) k/uL RBC (4.30-5.90) m/uL Hgb (13.0-17.5) gm/dL Hct (39.0-53.0) % Plt Count (150-450) k/uL Neutrophils # (1.3-7.7) k/uL Lymphocytes # (1.0-4.8) k/uL ABG pCO2 34 L (35-45) mmHg ABG pO2 64 L (83-108) mmHg ABG O2 Saturation 93.0 L (94-97) % Chloride (98-107) mmol/L Glucose (74-99) mg/dL POC Glucose (mg/dL) 135 H 169 H (75-99) mg/dL Magnesium (1.6-2.3) mg/dL Alkaline Phosphatase (38-126) U/L Total Protein (6.3-8.2) g/dL Crossmatch 08/20/16 08/20/16 08/21/16 Range/Units 21:54 23:19 00:12 WBC (3.8-10.6) k/uL RBC (4.30-5.90) m/uL Hgb (13.0-17.5) gm/dL Hct (39.0-53.0) % Plt Count (150-450) k/uL Neutrophils # (1.3-7.7) k/uL Lymphocytes # (1.0-4.8) k/uL ABG pCO2 (35-45) mmHg ABG pO2 (83-108) mmHg ABG O2 Saturation (94-97) % Chloride (98-107) mmol/L Glucose (74-99) mg/dL POC Glucose (mg/dL) 166 H 161 H 153 H (75-99) mg/dL Magnesium (1.6-2.3) mg/dL Alkaline Phosphatase (38-126) U/L Total Protein (6.3-8.2) g/dL Crossmatch 08/21/16 08/21/16 08/21/16 Range/Units 00:30 01:33 03:56 WBC (3.8-10.6) k/uL RBC 3.49 L (4.30-5.90) m/uL Hgb 10.6 L (13.0-17.5) gm/dL Hct 30.4 L (39.0-53.0) % Plt Count 127 L (150-450) k/uL Neutrophils # 9.3 H (1.3-7.7) k/uL Lymphocytes # 0.3 L (1.0-4.8) k/uL ABG pCO2 (35-45) mmHg ABG pO2 (83-108) mmHg ABG O2 Saturation (94-97) % Chloride (98-107) mmol/L Glucose (74-99) mg/dL POC Glucose (mg/dL) 132 H 120 H (75-99) mg/dL Magnesium (1.6-2.3) mg/dL Alkaline Phosphatase (38-126) U/L Total Protein (6.3-8.2) g/dL Crossmatch 08/21/16 08/21/16 08/21/16 Range/Units 05:16 05:16 06:17 WBC 12.0 H (3.8-10.6) k/uL RBC 3.63 L (4.30-5.90) m/uL Hgb 10.7 L (13.0-17.5) gm/dL Hct 31.0 L (39.0-53.0) % Plt Count 135 L (150-450) k/uL Neutrophils # 11.3 H (1.3-7.7) k/uL Lymphocytes # 0.5 L (1.0-4.8) k/uL ABG pCO2 (35-45) mmHg ABG pO2 (83-108) mmHg ABG O2 Saturation (94-97) % Chloride 109 H (98-107) mmol/L Glucose 116 H (74-99) mg/dL POC Glucose (mg/dL) 137 H (75-99) mg/dL Magnesium 2.4 H (1.6-2.3) mg/dL Alkaline Phosphatase 32 L (38-126) U/L Total Protein 5.6 L (6.3-8.2) g/dL Crossmatch 08/21/16 08/21/16 08/21/16 Range/Units 07:00 08:22 10:08 WBC (3.8-10.6) k/uL RBC (4.30-5.90) m/uL Hgb (13.0-17.5) gm/dL Hct (39.0-53.0) % Plt Count (150-450) k/uL Neutrophils # (1.3-7.7) k/uL Lymphocytes # (1.0-4.8) k/uL ABG pCO2 (35-45) mmHg ABG pO2 (83-108) mmHg ABG O2 Saturation (94-97) % Chloride (98-107) mmol/L Glucose (74-99) mg/dL POC Glucose (mg/dL) 144 H 154 H 172 H (75-99) mg/dL Magnesium (1.6-2.3) mg/dL Alkaline Phosphatase (38-126) U/L Total Protein (6.3-8.2) g/dL Crossmatch 08/21/16 08/21/16 08/21/16 Range/Units 11:12 12:14 13:13 WBC (3.8-10.6) k/uL RBC (4.30-5.90) m/uL Hgb (13.0-17.5) gm/dL Hct (39.0-53.0) % Plt Count (150-450) k/uL Neutrophils # (1.3-7.7) k/uL Lymphocytes # (1.0-4.8) k/uL ABG pCO2 (35-45) mmHg ABG pO2 (83-108) mmHg ABG O2 Saturation (94-97) % Chloride (98-107) mmol/L Glucose (74-99) mg/dL POC Glucose (mg/dL) 166 H 129 H 195 H (75-99) mg/dL Magnesium (1.6-2.3) mg/dL Alkaline Phosphatase (38-126) U/L Total Protein (6.3-8.2) g/dL Crossmatch 08/21/16 08/21/16 08/21/16 Range/Units 14:34 15:14 16:21 WBC (3.8-10.6) k/uL RBC (4.30-5.90) m/uL Hgb (13.0-17.5) gm/dL Hct (39.0-53.0) % Plt Count (150-450) k/uL Neutrophils # (1.3-7.7) k/uL Lymphocytes # (1.0-4.8) k/uL ABG pCO2 (35-45) mmHg ABG pO2 (83-108) mmHg ABG O2 Saturation (94-97) % Chloride (98-107) mmol/L Glucose (74-99) mg/dL POC Glucose (mg/dL) 171 H 147 H 151 H (75-99) mg/dL Magnesium (1.6-2.3) mg/dL Alkaline Phosphatase (38-126) U/L Total Protein (6.3-8.2) g/dL Crossmatch 08/21/16 Range/Units 17:02 WBC (3.8-10.6) k/uL RBC (4.30-5.90) m/uL Hgb (13.0-17.5) gm/dL Hct (39.0-53.0) % Plt Count (150-450) k/uL Neutrophils # (1.3-7.7) k/uL Lymphocytes # (1.0-4.8) k/uL ABG pCO2 (35-45) mmHg ABG pO2 (83-108) mmHg ABG O2 Saturation (94-97) % Chloride (98-107) mmol/L Glucose (74-99) mg/dL POC Glucose (mg/dL) 118 H (75-99) mg/dL Magnesium (1.6-2.3) mg/dL Alkaline Phosphatase (38-126) U/L Total Protein (6.3-8.2) g/dL Crossmatch Assessment and Plan Plan: The patient was seen and examined. I agree with the above assessment and plan. Overall he looks quite well. His [place]-Tosin catheter was removed. We will increase his Lopressor to 25 mg 3 times a day. He is already ambulated and is currently on nasal cannula. We will likely remove his chest tubes and transferred to selective care in the morning. His labs and chest x-ray were personally reviewed.
[2016-08-21 13:15] LABS: Glucose,Whole Blood 195 mg/dL (75-99)
[2016-08-21] MEDS ORDERED: MAGNESIUM HYDROXIDE 2,400 MG/10 ML CUP PO PRN (14:00)
[2016-08-21] MEDS ORDERED: BISACODYL 10 MG SUPP RECTAL PRN (14:00)
--- NOTE | 2016-08-21 14:19 | PN ---
Eliot Vance has coronary artery disease, underwent coronary artery bypass grafting. He is doing very well. He has been extubated, sitting up in a chair, has finished his lunch and breath sounds are equal bilaterally with some crackles at the bases. No rhonchi. Heart sounds are difficult to hear, there are conductive sounds noted. Abdomen is soft. Extremities are warm. IMPRESSION: Coronary artery disease, status post 4-vessel coronary artery bypass grafting. PLAN: Maximize cardiac medications.
[2016-08-21 14:27] LABS: Ionized Calcium 5.1 mg/dL (4.5-5.3)
[2016-08-21 14:38] LABS: Glucose,Whole Blood 171 mg/dL (75-99)
[2016-08-21 14:43] LABS: Mis test requested (Blood) Ionized Calcium
[2016-08-21] MEDS: HYDROcodone/APAP 5-325MG 1 EACH TAB PO PRN ×3 (15:08→23:16)
[2016-08-21] MEDS ORDERED: METOPROLOL TARTRATE 12.5 MG TAB PO SCH (15:15)
[2016-08-21 15:16] LABS: Glucose,Whole Blood 147 mg/dL (75-99)
[2016-08-21 16:23] LABS: Glucose,Whole Blood 151 mg/dL (75-99)
[2016-08-21] MEDS: LACTATED RINGERS 1,000 ML IV SCH (16:23)
[2016-08-21] MEDS: METOPROLOL TARTRATE 25 MG TAB PO SCH ×2 (16:25→21:24)
[2016-08-21 17:03] LABS: Glucose,Whole Blood 118 mg/dL (75-99)
[2016-08-21 18:33] LABS: Glucose,Whole Blood 200 mg/dL (75-99)
[2016-08-21 19:15] LABS: Glucose,Whole Blood 214 mg/dL (75-99)
[2016-08-21 20:11] LABS: Glucose,Whole Blood 174 mg/dL (75-99)
[2016-08-21 21:18] LABS: Glucose,Whole Blood 152 mg/dL (75-99)
[2016-08-21] MEDS: SENNOSIDES-DOCUSATE SODIUM 1 EACH TAB PO SCH (21:24)
--- NOTE | 2016-08-21 21:55 | PN ---
DATE OF SERVICE: 08/21/2016. PRESENTING COMPLAINT: Chest pains, status post coronary artery bypass grafting x4. Today patient is sitting up in the chair resting comfortably, completed eating his breakfast states he feels "fair given the current circumstances". No complaints of shortness of breath. No chest pain. Pain medication manages most of his pain with the exception of the chest tubes. Review of systems done for constitutional, cardiovascular, GI, pulmonary, with relevant findings as above. CURRENT MEDICATIONS: 1. [place] 5/325 milligrams 1 tablet q.4 hours p.r.n. 2. DuoNeb q.2 hours p.r.n. 3. Aspirin 325 mg p.o. daily. 4. Lipitor 40 mg p.o. daily. 5. Plavix 75 mg p.o. daily. 6. Lopressor 25 mg p.o. t.i.d. 7. Protonix 40 mg p.o. a.c. breakfast. PHYSICAL EXAMINATION: VITAL SIGNS: Temperature 98.1, blood pressure 135/52, pulse 79, respirations 21, oxygen saturation 98% on room air. GENERAL APPEARANCE: Patient is sitting in the chair. No acute distress noted or voiced. Patient's pain is well controlled. EYES: Pupils equal. Conjunctivae normal. NECK: JVD not raised. Mass not palpable. LUNGS: Diminished bilaterally. Respiratory effort normal. CARDIOVASCULAR: First and second sounds noted. Trace edema noted. ABDOMEN: Soft, nontender. Liver and spleen not palpable. PSYCHIATRY: Alert and oriented x3. Mood and affect normal. Midline incision with surgical dressing in place. No drainage on the dressing noted. INVESTIGATIONS: White blood cell count 9.8, hemoglobin 10.6. Sodium 142, glucose 116. Chest x-ray subsegmental areas more typical postoperative atelectasis. ASSESSMENT: 1. Status post coronary artery bypass grafting x4. 2. Diabetes mellitus, Type 2 chronically on oral hypoglycemics, currently on insulin drip. 3. Essential hypertension. 4. Hyperlipidemia. 5. Acute blood loss anemia as expected from surgery. 6. Thrombocytopenia, delusional. PLAN: As of this moment, patient has been extubated, is progressing nicely. Current medication regimen is appropriate. We will continue to advance according to ICU and cardiothoracic surgery protocols. Will continue to monitor the patient closely in conjunction with cardiothoracic surgery. Patient was seen and examined by nurse practitioner, Ellie Waldron, and all elements of the case discussed with attending, Dr. Manzano attending. I performed a history and physical examination of this patient and discussed the same with the dictator. I agree with the dictator's note. Any additional findings/opinions, etc. will be noted.
[2016-08-21 22:01] LABS: Glucose,Whole Blood 133 mg/dL (75-99)
[2016-08-21 23:12] LABS: Glucose,Whole Blood 140 mg/dL (75-99)
[2016-08-21 23:58] LABS: Glucose,Whole Blood 136 mg/dL (75-99)
[2016-08-22 01:07] LABS: Glucose,Whole Blood 134 mg/dL (75-99)
[2016-08-22] MEDS: CLEVIDIPINE BUTYRATE 25 MG in EMPTY BAG 1 BAG IV SCH ×3 (01:49→05:44)
[2016-08-22 01:57] LABS: Glucose,Whole Blood 133 mg/dL (75-99)
[2016-08-22 03:22] LABS: Glucose,Whole Blood 122 mg/dL (75-99)
[2016-08-22] MEDS: HYDROcodone/APAP 5-325MG 1 EACH TAB PO PRN ×6 (03:22→23:30)
[2016-08-22 03:40] LABS: Basophils % (A) 0 %; CH 30.2; Eosinophils % (A) 0 %; HCT 32.5 % (39.0-53.0); HDW 2.99; HGB 11.3 gm/dL (13.0-17.5); Luc # (Auto) 0.16; Luc % (Auto) 1; Lymphocytes % (A) 7 %; MCHC 34.6 g/dL (31.0-37.0); MCV 86.7 fL (80.0-100.0); Mean Platelet Volume 7.5; Monocytes # (A) 0.6 k/uL (0-1.0); Monocytes % (A) 4 %; Neutrophils # (A) 12.9 k/uL (1.3-7.7); Neutrophils % (A) 88 %; RBC 3.76 m/uL (4.30-5.90); WBC 14.7 k/uL (3.8-10.6)
[2016-08-22 03:44] LABS: INR 1.2 (<1.1)
[2016-08-22 04:00] LABS: ALT 32 U/L (21-72); AST 33 U/L (17-59); Alkaline Phosphatase 44 U/L (38-126); Anion Gap 11 mmol/L; Blood Urea Nitrogen 21 mg/dL (9-20); Calcium 8.8 mg/dL (8.4-10.2); Carbon Dioxide 21 mmol/L (22-30); Chloride 107 mmol/L (98-107); Glucose 127 mg/dL (74-99); Magnesium 2.3 mg/dL (1.6-2.3); Non-African American GFR(MDRD) >60 (>60 ml/min/1.73 sqM); Phosphorous 2.6 mg/dL (2.5-4.5); Potassium 4.1 mmol/L (3.5-5.1); Sodium 139 mmol/L (137-145); Total Bilirubin 0.6 mg/dL (0.2-1.3); Total Protein 5.6 g/dL (6.3-8.2)
--- NOTE | 2016-08-22 04:00 | XR ---
EXAM: XR Chest, 1 View CLINICAL HISTORY: Reason: Tube placement TECHNIQUE: Frontal view of the chest. COMPARISON: Chest x-ray 08/21/2016. FINDINGS: Lungs: Persistent left lower lung airspace disease. Low lung volumes. Heart: Unremarkable. Mediastinum: Unremarkable. Bones/joints: Sternotomy wires. Tubes, lines and devices: Right internal jugular approach catheter terminating in the region of the brachiocephalic vein. Interval removal of the [place]-Tosin catheter. Unchanged positioning of bilateral large-bore chest tubes. Upper abdomen: Indeterminate thin caliber densities projecting over the upper abdomen. IMPRESSION: 1. Right internal jugular approach catheter terminating in the region of the brachiocephalic vein. 2. Interval removal of the [place]-Tosin catheter. 3. Unchanged positioning of bilateral large-bore chest tubes. 4. Indeterminate thin caliber densities projecting over the upper abdomen. 5. Persistent left lower lung airspace disease. 6. Low lung volumes.
[2016-08-22 04:01] LABS: Glucose,Whole Blood 129 mg/dL (75-99)
[2016-08-22 06:14] LABS: Glucose,Whole Blood 107 mg/dL (75-99)
[2016-08-22 07:08] LABS: Glucose,Whole Blood 120 mg/dL (75-99)
[2016-08-22] MEDS: IPRATROPIUM-ALBUTEROL 3 ML NEB INHALATION PRN (07:46)
[2016-08-22 07:58] LABS: Glucose,Whole Blood 128 mg/dL (75-99)
[2016-08-22] MEDS: CLOPIDOGREL 75 MG TAB PO SCH (08:13)
[2016-08-22] MEDS: ATORVASTATIN 40 MG TAB PO SCH (08:13)
[2016-08-22] MEDS: METOPROLOL TARTRATE 25 MG TAB PO SCH ×3 (08:13→21:40)
[2016-08-22] MEDS: PANTOPRAZOLE 40 MG TABLET PO SCH (08:13)
[2016-08-22] MEDS: ASPIRIN 325 MG TAB PO SCH (08:13)
[2016-08-22] MEDS: HEPARIN SODIUM,PORCINE 5,000 UNIT/ML 1 ML VIAL SQ SCH ×3 (08:13→23:19)
[2016-08-22 09:30] LABS: Glucose,Whole Blood 208 mg/dL (75-99)
[2016-08-22 10:29] LABS: Glucose,Whole Blood 300 mg/dL (75-99)
--- NOTE | 2016-08-22 10:33 | P.PN ---
Subjective Principal diagnosis: Status post CABG for triple multivessel coronary artery disease postoperative day #2 This is a 51-year-old white male with history of hypertension, diabetes, hypercholesterolemia, patient had a recent stress test which was found to be abnormal. Cardiac catheterization showed multivessel coronary artery disease. Patient was basically relatively asymptomatic except for occasional chest pains and fatigue. Today, the patient underwent myocardial revascularization, postoperatively he was on mechanical ventilation, and I was asked to see him on consultation. Patient is on mechanical ventilation, his chest x-ray was reviewed and showed mostly postoperative changes. ABG was reviewed and events settings were addressed accordingly. Patient was reevaluated today on 08/21/2016, extubated last night uneventfully, presently on nasal cannula, in no distress. Relatively asymptomatic. Chest x- ray is reassuring except for minimal bibasilar atelectasis. No evidence of congestive heart failure or interstitial edema. No evidence of pneumonia. No evidence of pneumothorax. Reevaluated today on 08/22/2016, patient is doing relatively well, however he had episodes of desaturation last night, requiring placement on a high flow nasal cannula, and he remains on 8 L of nasal cannula/high flow. O2 saturations are in the low 90s. More atelectasis is noted of the left base, hence the patient was advised to have more deep coughing and more deep breathing , and to be compliant with the incentive spirometry. Patient is asymptomatic except for generalized weakness. Did not sleep well last night. Labs were reviewed relatively normal CBC was noted and normal electrolytes and renal profile. Objective - Vital Signs Vital signs: Vital Signs Temp 98.1 F 08/22/16 08:00 Pulse 79 08/22/16 10:15 Resp 17 08/22/16 10:15 BP 128/63 08/22/16 09:45 Pulse Ox 98 08/22/16 10:15 Intake & Output 08/21/16 08/22/16 08/22/16 18:59 06:59 18:59 Intake Total 1853.367 667.393 210.325 Output Total 1205 925 495 Balance 648.367 -257.607 -284.675 Weight 86 kg 86 kg Intake: IV 724 512 157 ACETAMINOPHEN IV (For NPO 100 ) 1,000 mg In Empty Bag 1 bag @ 400 mls/hr IVPB Q6HR [facility] Rx#:[id number] Lactated Ringers 1,000 ml 500 440 130 @ 20 mls/hr IV .Q24H [facility] Rx#:[id number] ceFAZolin 2 gm In Sodium 100 Chloride 0.9% 100 ml @ 100 mls/hr IVPB Q8HR [facility] Rx#:[id number] pressure bag 24 72 27 Intake, IV Titration 169.367 155.393 53.325 Amount Clevidipine Butyrate 25 85.800 137.466 50 mg In Empty Bag 1 bag @ 1 MG/HR 2 mls/hr IV .Q24H [facility] Rx#:[id number] Clevidipine Butyrate 25 50 mg In Empty Bag 1 bag @ Per Protocol IV .Q0M [facility] Rx#:[id number] Insulin Regular 100 unit 24.967 17.927 3.325 In Sodium Chloride 0.9% 100 ml @ Per Protocol IV .Q0M [facility] Rx#:[id number] Nitroglycerin-D5w Pmx 50 8.6 mg In Dextrose/Water 1 250ml.bag @ 5 MCG/MIN 1.5 mls/hr IV .Q24H [facility] Rx#: [id number] Oral 960 Output: Chest Tube Drainage 240 130 110 Chest Tube Bilateral 100 50 80 Lateral Chest Mediastinal 140 80 30 Urine 965 795 385 Other: Voiding Method Indwelling Catheter Indwelling Catheter Indwelling Catheter ABP, PAP, CO, CI - Last Documented Arterial Blood Pressure 111/56 Pulmonary Artery Pressure 26/8 Cardiac Output 7.7 Cardiac Index 4 - Labs CBC & Chem 7: 08/22/16 03:20 08/22/16 03:20 Labs: Abnormal Lab Results - Last 24 Hours (Table) 08/21/16 08/21/16 08/21/16 Range/Units 11:12 12:14 13:13 WBC (3.8-10.6) k/uL RBC (4.30-5.90) m/uL Hgb (13.0-17.5) gm/dL Hct (39.0-53.0) % Plt Count (150-450) k/uL Neutrophils # (1.3-7.7) k/uL Carbon Dioxide (22-30) mmol/L BUN (9-20) mg/dL Glucose (74-99) mg/dL POC Glucose (mg/dL) 166 H 129 H 195 H (75-99) mg/dL Total Protein (6.3-8.2) g/dL 08/21/16 08/21/16 08/21/16 Range/Units 14:34 15:14 16:21 WBC (3.8-10.6) k/uL RBC (4.30-5.90) m/uL Hgb (13.0-17.5) gm/dL Hct (39.0-53.0) % Plt Count (150-450) k/uL Neutrophils # (1.3-7.7) k/uL Carbon Dioxide (22-30) mmol/L BUN (9-20) mg/dL Glucose (74-99) mg/dL POC Glucose (mg/dL) 171 H 147 H 151 H (75-99) mg/dL Total Protein (6.3-8.2) g/dL 08/21/16 08/21/16 08/21/16 Range/Units 17:02 18:25 19:14 WBC (3.8-10.6) k/uL RBC (4.30-5.90) m/uL Hgb (13.0-17.5) gm/dL Hct (39.0-53.0) % Plt Count (150-450) k/uL Neutrophils # (1.3-7.7) k/uL Carbon Dioxide (22-30) mmol/L BUN (9-20) mg/dL Glucose (74-99) mg/dL POC Glucose (mg/dL) 118 H 200 H 214 H (75-99) mg/dL Total Protein (6.3-8.2) g/dL 08/21/16 08/21/16 08/21/16 Range/Units 20:03 21:16 21:59 WBC (3.8-10.6) k/uL RBC (4.30-5.90) m/uL Hgb (13.0-17.5) gm/dL Hct (39.0-53.0) % Plt Count (150-450) k/uL Neutrophils # (1.3-7.7) k/uL Carbon Dioxide (22-30) mmol/L BUN (9-20) mg/dL Glucose (74-99) mg/dL POC Glucose (mg/dL) 174 H 152 H 133 H (75-99) mg/dL Total Protein (6.3-8.2) g/dL 08/21/16 08/21/16 08/22/16 Range/Units 23:10 23:56 01:05 WBC (3.8-10.6) k/uL RBC (4.30-5.90) m/uL Hgb (13.0-17.5) gm/dL Hct (39.0-53.0) % Plt Count (150-450) k/uL Neutrophils # (1.3-7.7) k/uL Carbon Dioxide (22-30) mmol/L BUN (9-20) mg/dL Glucose (74-99) mg/dL POC Glucose (mg/dL) 140 H 136 H 134 H (75-99) mg/dL Total Protein (6.3-8.2) g/dL 08/22/16 08/22/16 08/22/16 Range/Units 01:54 03:18 03:20 WBC (3.8-10.6) k/uL RBC (4.30-5.90) m/uL Hgb (13.0-17.5) gm/dL Hct (39.0-53.0) % Plt Count (150-450) k/uL Neutrophils # (1.3-7.7) k/uL Carbon Dioxide 21 L (22-30) mmol/L BUN 21 H (9-20) mg/dL Glucose 127 H (74-99) mg/dL POC Glucose (mg/dL) 133 H 122 H (75-99) mg/dL Total Protein 5.6 L (6.3-8.2) g/dL 08/22/16 08/22/16 08/22/16 Range/Units 03:20 03:59 06:12 WBC 14.7 H (3.8-10.6) k/uL RBC 3.76 L (4.30-5.90) m/uL Hgb 11.3 L (13.0-17.5) gm/dL Hct 32.5 L (39.0-53.0) % Plt Count 148 L (150-450) k/uL Neutrophils # 12.9 H (1.3-7.7) k/uL Carbon Dioxide (22-30) mmol/L BUN (9-20) mg/dL Glucose (74-99) mg/dL POC Glucose (mg/dL) 129 H 107 H (75-99) mg/dL Total Protein (6.3-8.2) g/dL 08/22/16 08/22/16 08/22/16 Range/Units 07:06 07:56 09:27 WBC (3.8-10.6) k/uL RBC (4.30-5.90) m/uL Hgb (13.0-17.5) gm/dL Hct (39.0-53.0) % Plt Count (150-450) k/uL Neutrophils # (1.3-7.7) k/uL Carbon Dioxide (22-30) mmol/L BUN (9-20) mg/dL Glucose (74-99) mg/dL POC Glucose (mg/dL) 120 H 128 H 208 H (75-99) mg/dL Total Protein (6.3-8.2) g/dL 08/22/16 Range/Units 10:27 WBC (3.8-10.6) k/uL RBC (4.30-5.90) m/uL Hgb (13.0-17.5) gm/dL Hct (39.0-53.0) % Plt Count (150-450) k/uL Neutrophils # (1.3-7.7) k/uL Carbon Dioxide (22-30) mmol/L BUN (9-20) mg/dL Glucose (74-99) mg/dL POC Glucose (mg/dL) 300 H (75-99) mg/dL Total Protein (6.3-8.2) g/dL Assessment and Plan Plan: Impression: 1 status post CABG for multiple vessel coronary artery disease, postoperative day #2 2 history of diabetes, hypercholesterolemia, hypertension. 3 postoperative atelectasis most of the left base, patient is advised to do more deep coughing deep breathing and to be more compliant with the incentive spirometer. Recommendation: Continue present treatment plan including incentive spirometry, bronchodilators, early ambulation, we'll follow. Time with Patient: Less than 30
[2016-08-22 11:11] LABS: Glucose,Whole Blood 268 mg/dL (75-99)
--- NOTE | 2016-08-22 11:18 | P.PN ---
<Boyd Lacy - Last Filed: 08/22/16 11:17> Progress Note - Text CV Surgery Nursing Principal diagnosis: Coronary artery disease. POD #2 coronary artery bypass grafting 4 vessels (left internal mammary artery to left anterior descending artery, saphenous vein graft to diagonal artery, saphenous vein graft to obtuse marginal artery, saphenous vein graft to posterior descending artery). Endoscopic vein harvest left greater saphenous vein. Epi-aortic ultrasound. Intraoperative transesophageal echocardiogram. Patient awake and alert, no distress noted. He is complaining of pain 5 out of 10 on the pain scale while sitting still, but rates his pain 8 out of 10 with taking a deep breath. He is sitting up to the bedside chair, his is at his bedside. Vital Signs: Afebrile Vital Signs - 24 hr 08/21/16 08/21/16 08/21/16 10:00 10:30 11:00 Temperature Pulse Rate 76 79 73 Respiratory 15 17 22 Rate Blood Pressure 134/64 134/64 O2 Sat by Pulse 89 L 97 96 Oximetry 08/21/16 08/21/16 08/21/16 11:30 12:00 12:30 Temperature 98.6 F Pulse Rate 69 65 66 Respiratory 18 14 16 Rate Blood Pressure 134/64 134/64 O2 Sat by Pulse 100 97 95 Oximetry 08/21/16 08/21/16 08/21/16 13:00 13:30 14:00 Temperature Pulse Rate 73 77 73 Respiratory 19 22 14 Rate Blood Pressure O2 Sat by Pulse 96 97 98 Oximetry 08/21/16 08/21/16 08/21/16 14:30 14:58 15:00 Temperature Pulse Rate 73 70 Respiratory 18 14 Rate Blood Pressure O2 Sat by Pulse 98 98 98 Oximetry 08/21/16 08/21/16 08/21/16 15:30 16:00 16:30 Temperature 98.6 F Pulse Rate 73 72 77 Respiratory 18 18 22 Rate Blood Pressure 129/68 O2 Sat by Pulse 97 94 L 92 L Oximetry 08/21/16 08/21/16 08/21/16 17:00 17:30 18:00 Temperature Pulse Rate 75 72 73 Respiratory 18 22 Rate Blood Pressure 129/68 129/68 129/68 O2 Sat by Pulse 92 L 93 L 93 L Oximetry 08/21/16 08/21/16 08/21/16 18:30 19:00 19:30 Temperature Pulse Rate 76 75 76 Respiratory 14 18 17 Rate Blood Pressure O2 Sat by Pulse 95 94 L 94 L Oximetry 08/21/16 08/21/16 08/21/16 20:00 20:30 21:00 Temperature 99 F Pulse Rate 75 73 70 Respiratory 17 14 14 Rate Blood Pressure O2 Sat by Pulse 93 L 91 L 91 L Oximetry 08/21/16 08/21/16 08/21/16 21:30 22:00 22:30 Temperature Pulse Rate 72 71 73 Respiratory 17 17 22 Rate Blood Pressure 141/75 141/75 O2 Sat by Pulse 90 L 93 L 92 L Oximetry 08/21/16 08/21/16 08/22/16 23:00 23:30 00:00 Temperature 99.1 F Pulse Rate 72 64 65 Respiratory 48 H 16 16 Rate Blood Pressure 141/75 128/67 128/67 O2 Sat by Pulse 89 L 95 94 L Oximetry 08/22/16 08/22/16 08/22/16 00:30 01:00 01:30 Temperature Pulse Rate 66 67 70 Respiratory 16 14 17 Rate Blood Pressure 128/67 128/67 O2 Sat by Pulse 95 96 96 Oximetry 08/22/16 08/22/16 08/22/16 02:00 02:30 03:00 Temperature Pulse Rate 71 73 73 Respiratory 20 16 21 Rate Blood Pressure O2 Sat by Pulse 95 95 95 Oximetry 08/22/16 08/22/16 08/22/16 03:30 04:00 04:30 Temperature 99.1 F Pulse Rate 78 71 69 Respiratory 21 14 14 Rate Blood Pressure 153/76 O2 Sat by Pulse 93 L 95 95 Oximetry 08/22/16 08/22/16 08/22/16 05:00 05:30 06:00 Temperature Pulse Rate 70 76 80 Respiratory 15 18 24 Rate Blood Pressure O2 Sat by Pulse 95 94 L 95 Oximetry 08/22/16 08/22/16 08/22/16 06:30 07:00 07:30 Temperature Pulse Rate 76 77 77 Respiratory 16 17 16 Rate Blood Pressure 143/71 O2 Sat by Pulse 95 96 97 Oximetry 08/22/16 08/22/16 08/22/16 07:46 08:00 08:15 Temperature 98.1 F Pulse Rate 83 86 96 Respiratory 19 33 H Rate Blood Pressure 128/63 128/63 O2 Sat by Pulse 97 95 92 L Oximetry 08/22/16 08/22/16 08:30 08:45 Temperature Pulse Rate 87 77 Respiratory 19 22 Rate Blood Pressure 128/63 128/63 O2 Sat by Pulse 95 93 L Oximetry ABP, PAP, CO, CI - Last 8 Hours Arterial Blood Pressure 129/59 Arterial Blood Pressure 136/59 Arterial Blood Pressure 165/16 Arterial Blood Pressure 152/61 Arterial Blood Pressure 126/57 Arterial Blood Pressure 133/56 Arterial Blood Pressure 136/56 Arterial Blood Pressure 136/62 Arterial Blood Pressure 146/60 Arterial Blood Pressure 134/57 Arterial Blood Pressure 125/55 Arterial Blood Pressure 122/52 Arterial Blood Pressure 144/57 Arterial Blood Pressure 147/59 Arterial Blood Pressure 149/57 Arterial Blood Pressure 136/55 Labs: Short CBC 08/22/16 Range/Units 03:20 WBC 14.7 H (3.8-10.6) k/uL Hgb 11.3 L (13.0-17.5) gm/dL Hct 32.5 L (39.0-53.0) % Plt Count 148 L (150-450) k/uL Neutrophils # 12.9 H (1.3-7.7) k/uL BMP 08/22/16 03:20 Sodium 139 Potassium 4.1 Chloride 107 Carbon Dioxide 21 L BUN 21 H Creatinine 0.90 Glucose 127 H Calcium 8.8 Liver Function 08/22/16 Range/Units 03:20 Total Bilirubin 0.6 (0.2-1.3) mg/dL AST 33 (17-59) U/L ALT 32 (21-72) U/L Alkaline Phosphatase 44 (38-126) U/L Albumin 3.5 (3.5-5.0) g/dL ABG ABG pH 7.42 (7.35-7.45) 08/20/16 21:00 ABG pCO2 34 mmHg (35-45) L 08/20/16 21:00 ABG pO2 64 mmHg (83-108) L 08/20/16 21:00 ABG O2 Saturation 93.0 % (94-97) L 08/20/16 21:00 PT/INR, D-dimer PT 12.0 sec (9.0-12.0) 08/22/16 03:20 INR 1.2 (<1.1) 08/22/16 03:20 IV Fluids: Lactated Ringer's at 20 mL per hour Cleviprex drip at 10 mg per hour Insulin drip currently on hold. CVP: 11 Lungs: Scattered crackles heard to his bilateral bases, essentially clear to his upper lobes. Respirations are symmetrical and unlabored, although he is guarding his respirations due to pain with inspiration. O2 sat: 95% on 10 L high flow nasal cannula I/S: 1000 mL, reviewed with the patient the importance of using his incentive spirometry every hour while awake. The patient did give a good return demonstration on his incentive spirometry. Heart: S1S2, regular rhythm and rate, negative for S3, gallop or murmur. Bedside telemetry showing normal sinus rhythm heart rate 77. Sternum stable, chest incision clean with sternal dressing clean and dry. Heart hugger in place, patient demonstrating proper use of his heart hugger. Left leg incisions clean dry and well approximated. Knee-high SEBASTIAN hose and sequential compression devices in place to his bilateral lower extremities. Abdomen: Soft, Positive hypoactive bowel sounds present in all 4 quadrants. Patient denies passing any flatus since surgery. CBGs: 128-214 mg/dL in the last 24 hours. U/O: Adequate, goode catheter for accurate I&O. 435 mL output in the last 8 hours. Chest Tubes: Left and right pleural chest tubes without air leak, remains to continuous low wall suction. Draining thin serosanguineous drainage. 20 mL output in the last 8 hours, 220 mL output in the last 24 hours. Mediastinal chest tube without air leak, remains to low continuous wall suction. Draining thin serosanguineous drainage. 30 mL output in the last 8 hours, 220 mL output in the last 24 hours. 24 hr Total: Intake & Output 08/20/16 08/21/16 08/22/16 08/23/16 06:59 06:59 06:59 06:59 Intake Total 9936.895 0882.760 171 Output Total 5521 2130 415 Balance -4046.463 390.760 -244 Weight 78.6 kg 87.3 kg 86 kg 86 kg Active Medications Hydrocodone Bitart/Acetaminophen ([facility] 5-325) 2 each PO Q4HR PRN PRN Reason: Severe Pain Last Admin: 08/22/16 08:51 Dose: 2 each Hydrocodone Bitart/Acetaminophen ([facility] 5-325) 1 each PO Q4HR PRN PRN Reason: Moderate Pain Last Admin: 08/22/16 06:17 Dose: 1 each Albuterol/Ipratropium (Duoneb 0.5 Mg-3 Mg/3 Ml Soln) 3 ml INHALATION RT-Q2H PRN PRN Reason: Shortness Of Breath Or Wheezing Last Admin: 08/22/16 07:46 Dose: 3 ml Aspirin (Aspirin) 325 mg PO DAILY [facility] Last Admin: 08/22/16 08:13 Dose: 325 mg Atorvastatin Calcium (Lipitor) 40 mg PO DAILY [facility] Last Admin: 08/22/16 08:13 Dose: 40 mg Benzocaine/Menthol (Cepacol Lozenge) 1 each MUCOUS MEM Q2H PRN PRN Reason: Sore Throat Bisacodyl (Dulcolax) 10 mg RECTAL DAILY PRN PRN Reason: Constipation Clopidogrel Bisulfate (Plavix) 75 mg PO DAILY [facility] Last Admin: 08/22/16 08:13 Dose: 75 mg Heparin Sodium (Porcine) (Heparin) 5,000 unit SQ Q8HR [facility] Last Admin: 08/22/16 08:13 Dose: 5,000 unit Albumin Human 250 ml/ IV (Solution) 250 mls @ 250 mls/hr IVPB Q1HR PRN PRN Reason: For Volume Stop: 08/22/16 14:59 Clevidipine 25 mg/ IV Solution 50 mls @ 2 mls/hr IV .Q24H [facility]; 1 MG/HR PRN Reason: Protocol Last Titration: 08/22/16 09:34 Dose: Infused Insulin Human Regular 100 unit (/ Sodium Chloride) 101 mls @ 0 mls/hr IV .Q0M [facility]; Per Protocol PRN Reason: Protocol Last Titration: 08/22/16 09:31 Dose: 3.46 units/hr, 3.5 mls/hr Lactated Ringer's (Lactated Ringers) 1,000 mls @ 20 mls/hr IV .Q24H [facility] Last Admin: 08/21/16 16:23 Dose: 20 mls/hr Magnesium Hydroxide (Milk Of Magnesia) 2,400 mg PO BID PRN PRN Reason: Constipation Metoclopramide HCl (Reglan) 10 mg IVP Q4H PRN PRN Reason: Nausea And Vomiting Metoprolol Tartrate (Lopressor) 25 mg PO TID [facility] Last Admin: 08/22/16 08:13 Dose: 25 mg Miscellaneous Information (Magnesium Per Protocol) 1 each MISCELLANE DAILY PRN ; Protocol PRN Reason: Per Protocol Miscellaneous Information (Phosphorus Per Protocol) 1 each MISCELLANE DAILY PRN ; Protocol PRN Reason: Per Protocol Miscellaneous Information (Potassium Per Protocol) 1 each MISCELLANE DAILY PRN ; Protocol PRN Reason: Per Protocol Naloxone HCl (Narcan) 0.2 mg IV Q2M PRN PRN Reason: Opioid Reversal Ondansetron HCl (Zofran) 4 mg IVP Q6HR PRN PRN Reason: Nausea And Vomiting Last Admin: 08/21/16 01:36 Dose: 4 mg Pantoprazole Sodium (Protonix) 40 mg PO AC-BRKFST [facility] Last Admin: 08/22/16 08:13 Dose: 40 mg Senna/Docusate Sodium (Senokot-S) 2 each PO HS [facility] Last Admin: 08/21/16 21:24 Dose: 2 each Sodium Chloride (Saline Flush) 10 ml IV BID [facility] Last Admin: 08/22/16 08:07 Dose: Not Given Plan: Plan: 1. Continue aspirin, statin, Plavix, heparin, and metoprolol. 2. Encourage incentive spirometry use every hour while awake. 3. Increase activity, out of bed to chair. Physical therapy to follow. 4. Pain control per when necessary orders as patient is guarding his respirations. We will add Toradol 15 mg IV every 6 hours when necessary pain 48 hours. 5. GI/DVT prophylaxis. 6. Daily labs, chest x-rays. 7. We will discontinue his mediastinal chest tube, and split his pleural chest tubes. 8. More recommendations as patient progresses. <Bobby Cox - Last Filed: 08/22/16 11:41> Progress Note - Text The patient was seen and examined. I agree with the above assessment and plan. Apparently he had some anxiety and hypoxia overnight which required increased oxygen support. This morning he is breathing easier and is down to 6 L nasal cannula. We will continue to wean his oxygen as tolerated. He has been ambulating without difficulty in the hallway. We will remove his mediastinal chest tube and split his pleural chest tubes. We will discontinue his Goode catheter, arterial line, and Cordis. His pain appears to be well controlled. If he continues to look good we will consider transfer to selective care later this afternoon.
--- NOTE | 2016-08-22 11:51 | PN ---
DATE OF SERVICE: 08/21/2016 ATTENDING NOTE: This patient was seen and examined by me on 08/21/2016 . I reviewed the note of my nurse practitioner, Ms. Waldron. Discussed and agreed with the same. Patient is feeling better, sitting up, ( ) eat his breakfast. Breathing is better. He is more comfortable. On examination, the blood pressure 135/52, pulse ox 98% on room air. LUNGS: Slightly decreased breath sounds. CARDIOVASCULAR: First and second sounds normal. PSYCH: Alert and oriented x3. ASSESSMENT: 1. Status post coronary artery bypass. 2. Diabetes mellitus type 2. PLAN: Overall doing better. Should be able to switch him over to oral hypoglycemics when diet is more consistent.
[2016-08-22 12:41] LABS: Glucose,Whole Blood 220 mg/dL (75-99)
[2016-08-22] MEDS: LISINOPRIL 5 MG TAB PO SCH ×2 (13:14→20:22)
--- NOTE | 2016-08-22 13:39 | PN ---
Eliot Vance is doing fairly well. He is lying comfortably in bed. He denies any chest discomfort. There is some diffuse ST elevation on his electrogram representing ( ). He denies any significant new chest discomfort. He does not appear to be short of breath. His blood pressure is elevated and now after stopping the IV medications, lisinopril is going to be started. Head and neck examination is normal. Heart sounds, conduction sounds are audible and rub is audible. Breath sounds are reduced bilaterally. Blood pressure is 156/69 mmHg. PLAN: Start lisinopril 10 mg p.o. daily. Continue other cardiac medications.
[2016-08-22 14:09] LABS: Hemoglobin A1C 8.2 % (4.2-6.1)
[2016-08-22 14:50] LABS: Glucose,Whole Blood 235 mg/dL (75-99)
[2016-08-22 16:04] LABS: Glucose,Whole Blood 161 mg/dL (75-99)
[2016-08-22 17:13] LABS: Glucose,Whole Blood 133 mg/dL (75-99)
[2016-08-22] MEDS: INSULIN LISPRO (humaLOG) 300 UNIT/3 ML VIAL SQ SCH ×3 (17:41→21:37)
[2016-08-22 19:23] LABS: Glucose,Whole Blood 200 mg/dL (75-99)
[2016-08-22] MEDS ORDERED: LISINOPRIL 5 MG TAB PO ONE (20:15)
[2016-08-22] MEDS: SENNOSIDES-DOCUSATE SODIUM 1 EACH TAB PO SCH (20:26)
[2016-08-22 21:29] LABS: Glucose,Whole Blood 211 mg/dL (75-99)
[2016-08-22] MEDS: INSULIN NPH 300 UNIT/3 ML VIAL SQ SCH (21:39)
[2016-08-23 01:45] LABS: Glucose,Whole Blood 110 mg/dL (75-99)
[2016-08-23] MEDS: INSULIN LISPRO (humaLOG) 300 UNIT/3 ML VIAL SQ SCH ×6 (02:06→21:23)
[2016-08-23] MEDS: HYDROcodone/APAP 5-325MG 1 EACH TAB PO PRN ×3 (03:53→20:11)
[2016-08-23 06:20] LABS: Basophils % (A) 0 %; CH 29.4; Eosinophils # (A) 0.1 k/uL (0-0.7); Eosinophils % (A) 1 %; HCT 31.3 % (39.0-53.0); HDW 2.81; Luc # (Auto) 0.12; Luc % (Auto) 1; Lymphocytes # (A) 1.2 k/uL (1.0-4.8); Lymphocytes % (A) 14 %; MCH 28.6 pg (25.0-35.0); MCHC 32.1 g/dL (31.0-37.0); MCV 89.3 fL (80.0-100.0); Mean Platelet Volume 7.1; Monocytes # (A) 0.4 k/uL (0-1.0); Monocytes % (A) 4 %; Neutrophils # (A) 6.8 k/uL (1.3-7.7); Neutrophils % (A) 79 %; WBC 8.6 k/uL (3.8-10.6); WBC (Perox) 8.93
[2016-08-23 06:25] LABS: Ionized Calcium 4.9 mg/dL (4.5-5.3)
[2016-08-23 06:29] LABS: INR 1.1 (<1.1); Partial Thromboplastin Time 31.7 sec (22.0-30.0); Prothrombin Time 10.6 sec (9.0-12.0)
[2016-08-23 06:30] LABS: ALT 27 U/L (21-72); AST 21 U/L (17-59); Alkaline Phosphatase 41 U/L (38-126); Anion Gap 6 mmol/L; Blood Urea Nitrogen 21 mg/dL (9-20); Calcium 8.4 mg/dL (8.4-10.2); Carbon Dioxide 27 mmol/L (22-30); Chloride 105 mmol/L (98-107); Glucose 113 mg/dL (74-99); Non-African American GFR(MDRD) >60 (>60 ml/min/1.73 sqM); Phosphorous 2.8 mg/dL (2.5-4.5); Sodium 138 mmol/L (137-145); Total Bilirubin 0.5 mg/dL (0.2-1.3); Total Protein 5.1 g/dL (6.3-8.2)
[2016-08-23 06:33] LABS: Glucose,Whole Blood 117 mg/dL (75-99)
[2016-08-23 06:39] LABS: Potassium 4.4 mmol/L (3.5-5.1)
[2016-08-23] MEDS: PANTOPRAZOLE 40 MG TABLET PO SCH (06:40)
--- NOTE | 2016-08-23 08:18 | PN ---
DATE OF SERVICE: 08/22/2016 This 51-year-old gentleman who was admitted with CAD, CABG x4, is being closely monitored. Patient is on IV insulin drip at this time. The patient has been treated with oral medication at home but sugars are to 300. The patient is taking anywhere between 5 to 6 units per hour on insulin drip. The patient has been extubated. The patient is being closely monitored at this time. PAST MEDICAL HISTORY: Reviewed. REVIEW OF SYSTEMS: CARDIOVASCULAR: As mentioned. GI: As mentioned. : No dysuria or hematuria. ENDOCRINE: As mentioned. MEDICATIONS: 1. [place] 5 mg. 2. DuoNeb q.i.d. and p.r.n. 3. Aspirin. 4. Lipitor 240 mg. 5. Reglan. 6. Plavix. 7. Heparin. 8. Zestril 10 mg. 9. Milk of Magnesia. 10. Lopressor. 11. Protonix. PHYSICAL EXAMINATION: Patient is alert and oriented x3. Pulse is 80. Blood pressure 150/70, respirations 20, temperature normal, pulse ox 100% on 4L. HEENT: Conjunctivae normal. Oral mucosa moist. NECK: No jugular venous distention. No lymph node enlargement. CARDIOVASCULAR: S1 and S2. No S3 or S4. LUNGS: Breath sounds diminished at the bases. Bilateral scattered rhonchi and crackles. Expiratory wheezing also present. ABDOMEN: Soft, nontender. No masses palpable. EXTREMITIES: No edema, no swelling. NERVOUS SYSTEM: Higher functions as mentioned. Moves all extremities. No focal motor or sensory deficits. LYMPHATIC: No focal motor or sensory deficits. LABS: Accu-Cheks 268, 220, 235, 161. WBC 14.5, hemoglobin 11.3.BUN 21. ASSESSMENT: 1. Coronary artery disease, coronary artery bypass grafting x4. 2. Diabetes mellitus type 2, uncontrolled on insulin drip. Previously on oral hypoglycemics. 3. Essential hypertension. 4. Hyperlipidemia. 5. Anemia of acute blood loss as suspected from the surgery. 6. Thrombocytopenia, dilutional as expected. 7. FULL CODE. RECOMMENDATIONS AND DISCUSSION: In this 51-year-old gentleman who presented after surgery, being monitored at this time. I would recommend to protocol and monitor blood sugars closely. Adjust blood sugar accordingly. The high blood sugar could be stress reaction. The patient was taking glipizide and at home. We will continue to monitor. Incentive spirometry. The patient is reaching up to 1000 mL. Otherwise, DVT prophylaxis. Closely follow. Continue the rest of the medications. Further recommendations to follow. MTDD
--- NOTE | 2016-08-23 08:22 | XR ---
EXAMINATION TYPE: XR chest 1V portable DATE OF EXAM: 08/23/2016 COMPARISON: Prior chest x-ray 22 Aug 2016 HISTORY: Status post coronary artery bypass graft TECHNIQUE: Single frontal view of the chest is obtained. FINDINGS: Bilateral chest tubes are in place. There is improvement in aeration. Heart remains enlarg ed. Suspect median sternal drain has been removed. No sizable pneumothorax. No evident effusion. IMPRESSION: Improved aeration.
[2016-08-23] MEDS: HEPARIN SODIUM,PORCINE 5,000 UNIT/ML 1 ML VIAL SQ SCH ×3 (08:39→22:23)
[2016-08-23] MEDS: ATORVASTATIN 40 MG TAB PO SCH (08:40)
[2016-08-23] MEDS: CLOPIDOGREL 75 MG TAB PO SCH (08:40)
[2016-08-23] MEDS: METOPROLOL TARTRATE 25 MG TAB PO SCH ×3 (08:40→21:24)
[2016-08-23] MEDS: ASPIRIN 325 MG TAB PO SCH (08:40)
[2016-08-23] MEDS: LISINOPRIL 10 MG TAB PO SCH (08:40)
[2016-08-23] MEDS: INSULN ASP PRT/INSULIN ASPART 100 UNIT/ML 10 ML VIAL SQ SCH (08:46)
--- NOTE | 2016-08-23 11:43 | P.PN ---
<Boyd Lacy Susana - Last Filed: 08/23/16 11:41> Progress Note - Text CV Surgery Nursing Principal diagnosis: Coronary artery disease. POD #3 coronary artery bypass grafting 4 vessels (left internal mammary artery to left anterior descending artery, saphenous vein graft to diagonal artery, saphenous vein graft to obtuse marginal artery, saphenous vein graft to posterior descending artery). Endoscopic vein harvest left greater saphenous vein. Epi-aortic ultrasound. Intraoperative transesophageal echocardiogram. Patient awake and alert, no distress noted, no specific complaints, he is ambulating in the hallway with minimal assistance. Vital Signs: Afebrile Vital Signs - 24 hr 08/22/16 08/22/16 08/22/16 11:20 11:30 12:00 Temperature 98.1 F Pulse Rate 83 80 Pulse Rate [ Pulse Oximetery ] Respiratory 17 19 Rate Blood Pressure Blood Pressure [Right Arm] O2 Sat by Pulse 99 99 99 Oximetry 08/22/16 08/22/16 08/22/16 12:30 13:00 14:00 Temperature Pulse Rate 82 84 86 Pulse Rate [ Pulse Oximetery ] Respiratory 12 25 H 28 H Rate Blood Pressure 145/81 143/75 150/68 Blood Pressure [Right Arm] O2 Sat by Pulse 99 98 99 Oximetry 08/22/16 08/22/16 08/22/16 15:00 15:42 16:00 Temperature Pulse Rate 82 80 Pulse Rate [ Pulse Oximetery ] Respiratory 15 19 Rate Blood Pressure 152/79 152/79 Blood Pressure [Right Arm] O2 Sat by Pulse 100 100 100 Oximetry 08/22/16 08/22/16 08/22/16 17:00 18:00 19:00 Temperature Pulse Rate 81 86 89 Pulse Rate [ Pulse Oximetery ] Respiratory 19 22 24 Rate Blood Pressure 140/73 137/73 152/80 Blood Pressure [Right Arm] O2 Sat by Pulse 100 98 100 Oximetry 08/22/16 08/22/16 08/23/16 20:00 21:15 00:00 Temperature 100.4 F H 98.5 F Pulse Rate 86 Pulse Rate [ 85 78 Pulse Oximetery ] Respiratory 21 20 18 Rate Blood Pressure 163/77 Blood Pressure 147/86 141/88 [Right Arm] O2 Sat by Pulse 99 97 96 Oximetry 08/23/16 08/23/16 04:00 08:00 Temperature 98.3 F 98.4 F Pulse Rate Pulse Rate [ 84 91 Pulse Oximetery ] Respiratory 18 18 Rate Blood Pressure Blood Pressure 146/88 129/70 [Right Arm] O2 Sat by Pulse 96 100 Oximetry Labs: Short CBC 08/23/16 Range/Units 06:02 WBC 8.6 (3.8-10.6) k/uL Hgb 10.0 L (13.0-17.5) gm/dL Hct 31.3 L (39.0-53.0) % Plt Count 134 L (150-450) k/uL Neutrophils # 6.8 (1.3-7.7) k/uL BMP 08/23/16 06:02 Sodium 138 Potassium 4.4 Chloride 105 Carbon Dioxide 27 BUN 21 H Creatinine 0.90 Glucose 113 H Calcium 8.4 Liver Function 08/23/16 Range/Units 06:02 Total Bilirubin 0.5 (0.2-1.3) mg/dL AST 21 (17-59) U/L ALT 27 (21-72) U/L Alkaline Phosphatase 41 (38-126) U/L Albumin 3.0 L (3.5-5.0) g/dL Lungs: Essentially clear throughout, scattered crackles to his bilateral bases. Respirations are symmetrical and unlabored. O2 sat: 98% on 2 L nasal cannula. I/S: 1000 mL, reviewed with the patient the importance of using his incentive spirometry every hour while awake. The patient demonstrated good use of his incentive spirometry. Heart: S1S2, regular rhythm and rate, negative for S3, gallop or murmur. Remote telemetry showing normal sinus rhythm heart rate 90. Sternum stable, chest incision clean with sternal dressing clean and dry. No drainage noted. Heart hugger in place, patient demonstrating proper use of his heart hugger. Left leg incisions clean dry and well approximated. No drainage noted. Knee-high SEBASTIAN hose and sequential compression devices in place to his bilateral lower extremities. Abdomen: Soft, Positive bowel sounds present in all 4 quadrants. Positive bowel movement this a.m. CBGs: 110-235 mg/dL in the last 24 hours. U/O: Adequate. Chest Tubes: Left pleural chest tube without air leak, remains to low continuous wall suction. His draining thin serosanguineous drainage. 45 mL output in the last 8 hours, 160 mL output in the last 24 hours. Right pleural chest tube without air leak, draining thin serosanguineous drainage. Remains to low continuous wall suction. 40 mL output in the last 8 hours, 100 mL output in the last 24 hours. 24 hr Total: Intake & Output 08/21/16 08/22/16 08/23/16 08/24/16 06:59 06:59 06:59 06:59 Intake Total 2706.895 8568.760 638.325 100 Output Total 5521 2130 1144 Balance -4046.463 390.760 -505.675 100 Weight 87.3 kg 86 kg 84.8 kg Active Medications Hydrocodone Bitart/Acetaminophen (Hardin 5-325) 2 each PO Q4HR PRN PRN Reason: Severe Pain Last Admin: 08/23/16 08:44 Dose: 2 each Hydrocodone Bitart/Acetaminophen (Hardin 5-325) 1 each PO Q4HR PRN PRN Reason: Moderate Pain Last Admin: 08/22/16 06:17 Dose: 1 each Albuterol/Ipratropium (Duoneb 0.5 Mg-3 Mg/3 Ml Soln) 3 ml INHALATION RT-Q2H PRN PRN Reason: Shortness Of Breath Or Wheezing Last Admin: 08/22/16 07:46 Dose: 3 ml Aspirin (Aspirin) 325 mg PO DAILY [facility] Last Admin: 08/23/16 08:40 Dose: 325 mg Atorvastatin Calcium (Lipitor) 40 mg PO DAILY [facility] Last Admin: 08/23/16 08:40 Dose: 40 mg Bisacodyl (Dulcolax) 10 mg RECTAL DAILY PRN PRN Reason: Constipation Clopidogrel Bisulfate (Plavix) 75 mg PO DAILY [facility] Last Admin: 08/23/16 08:40 Dose: 75 mg Heparin Sodium (Porcine) (Heparin) 5,000 unit SQ Q8HR [facility] Last Admin: 08/23/16 08:39 Dose: 5,000 unit Insulin Aspart (Novolog Mix 70-30 Vial) 34 unit 0.4 unit/kg (34 unit) SQ - BRKFST [facility] Last Admin: 08/23/16 08:46 Dose: 34 unit Insulin Human Lispro (Humalog) 9 unit 0.1 unit/kg (9 unit) SQ AC-SUPPER [facility] Last Admin: 08/22/16 17:41 Dose: 9 unit Insulin Human Lispro (Humalog) 0 unit SQ [id number] [facility] PRN Reason: Protocol Last Admin: 08/23/16 06:24 Dose: Not Given Insulin Human NPH (Humulin N) 9 unit 0.1 unit/kg (9 unit) SQ HS [facility] Last Admin: 08/22/16 21:39 Dose: 9 unit Lisinopril (Zestril) 10 mg PO DAILY [facility] Last Admin: 08/23/16 08:40 Dose: 10 mg Magnesium Hydroxide (Milk Of Magnesia) 2,400 mg PO BID PRN PRN Reason: Constipation Metoclopramide HCl (Reglan) 10 mg IVP Q4H PRN PRN Reason: Nausea And Vomiting Metoprolol Tartrate (Lopressor) 25 mg PO TID [facility] Last Admin: 08/23/16 08:40 Dose: 25 mg Miscellaneous Information (Magnesium Per Protocol) 1 each MISCELLANE DAILY PRN ; Protocol PRN Reason: Per Protocol Miscellaneous Information (Phosphorus Per Protocol) 1 each MISCELLANE DAILY PRN ; Protocol PRN Reason: Per Protocol Miscellaneous Information (Potassium Per Protocol) 1 each MISCELLANE DAILY PRN ; Protocol PRN Reason: Per Protocol Ondansetron HCl (Zofran) 4 mg IVP Q6HR PRN PRN Reason: Nausea And Vomiting Last Admin: 08/21/16 01:36 Dose: 4 mg Pantoprazole Sodium (Protonix) 40 mg PO AC-BRKFST [facility] Last Admin: 08/23/16 06:40 Dose: 40 mg Senna/Docusate Sodium (Senokot-S) 2 each PO HS [facility] Last Admin: 08/22/16 20:26 Dose: 2 each Sodium Chloride (Saline Flush) 10 ml IV BID [facility] Last Admin: 08/23/16 08:46 Dose: 10 ml Plan: 1. Continue aspirin, statin, Plavix, heparin, and metoprolol. 2. Encourage incentive spirometry use every hour while awake. 3. Increase activity, out of bed to chair. Physical therapy to follow. 4. Discontinue epicardial pacemaker wires today, bedrest for 1 hour post epicardial pacemaker wire removal. 5. GI/DVT prophylaxis. 6. Daily labs, chest x-rays. 7. We will discontinue his left and right pleural chest tubes. 8. Discharge planning in place. <Bobby Cox - Last Filed: 08/23/16 12:14> Progress Note - Text The patient was seen and examined. I agree with the above assessment and plan. His remaining chest tubes and pacing wires were removed today. Currently on nasal cannula which we will continue to wean. We will have him ambulate in the hallway. Chest x-ray and laboratory studies were reviewed. He will likely be discharged home tomorrow.
--- NOTE | 2016-08-23 11:52 | PN ---
Eliot Vance is a 51-year-old patient who underwent coronary artery bypass grafting. He is doing well. His chest tubes were just taken out. He is lying comfortably in bed. His vitals are stable. He is afebrile, 98.4 degrees Fahrenheit. Pulse rate in the 90s. Blood pressure 129/70 mmHg. Breath sounds are reduced bilaterally. Heart sounds S1, S2 are soft and regular. No murmurs. Abdomen was soft. Extremities are warm No edema. IMPRESSION: Coronary artery disease, status post coronary artery bypass grafting. PLAN: Continue current medications likely discharge in the next 48 hours.
[2016-08-23 12:31] LABS: Glucose,Whole Blood 92 mg/dL (75-99)
--- NOTE | 2016-08-23 12:39 | P.PN ---
Subjective Principal diagnosis: Status post CABG for triple multivessel coronary artery disease postoperative day #3 This is a 51-year-old white male with history of hypertension, diabetes, hypercholesterolemia, patient had a recent stress test which was found to be abnormal. Cardiac catheterization showed multivessel coronary artery disease. Patient was basically relatively asymptomatic except for occasional chest pains and fatigue. Today, the patient underwent myocardial revascularization, postoperatively he was on mechanical ventilation, and I was asked to see him on consultation. Patient is on mechanical ventilation, his chest x-ray was reviewed and showed mostly postoperative changes. ABG was reviewed and events settings were addressed accordingly. Patient was reevaluated today on 08/21/2016, extubated last night uneventfully, presently on nasal cannula, in no distress. Relatively asymptomatic. Chest x- ray is reassuring except for minimal bibasilar atelectasis. No evidence of congestive heart failure or interstitial edema. No evidence of pneumonia. No evidence of pneumothorax. Reevaluated today on 08/22/2016, patient is doing relatively well, however he had episodes of desaturation last night, requiring placement on a high flow nasal cannula, and he remains on 8 L of nasal cannula/high flow. O2 saturations are in the low 90s. More atelectasis is noted of the left base, hence the patient was advised to have more deep coughing and more deep breathing , and to be compliant with the incentive spirometry. Patient is asymptomatic except for generalized weakness. Did not sleep well last night. Labs were reviewed relatively normal CBC was noted and normal electrolytes and renal profile. Patient was reevaluated on 08/23/2016, continues to do quite well, he is down to 3 L nasal cannula. Feeling better, chest x-ray is showing definite improvement in his atelectasis. Better aeration is noted in the left base. Clinically the patient is also better. Objective - Vital Signs Vital signs: Vital Signs Temp 98.4 F 08/23/16 08:00 Pulse 91 08/23/16 08:00 Resp 18 08/23/16 08:00 BP 129/70 08/23/16 08:00 Pulse Ox 100 08/23/16 08:00 Intake & Output 08/22/16 08/23/16 08/23/16 18:59 06:59 18:59 Intake Total 378.325 260 100 Output Total 905 239 Balance -526.675 21 100 Weight 86 kg 84.8 kg Intake: IV 295 20 Lactated Ringers 1,000 ml 250 20 @ 20 mls/hr IV .Q24H [facility] Rx#:[id number] pressure bag 45 Intake, IV Titration 83.325 Amount Clevidipine Butyrate 25 50 mg In Empty Bag 1 bag @ 1 MG/HR 2 mls/hr IV .Q24H [facility] Rx#:[id number] Insulin Regular 100 unit 3.325 In Sodium Chloride 0.9% 100 ml @ Per Protocol IV .Q0M [facility] Rx#:[id number] Lactated Ringers 1,000 ml 30 @ 20 mls/hr IV .Q24H [facility] Rx#:[id number] Oral 240 100 Output: Chest Tube Drainage 170 89 Chest Tube Bilateral 110 Lateral Chest Left Lateral Chest 0 46 Mediastinal 60 Right Lateral Chest 0 43 Urine 735 150 Other: Voiding Method Urinal Urinal Urinal # Voids 1 # Bowel Movements 1 ABP, PAP, CO, CI - Last Documented Arterial Blood Pressure 139/66 Pulmonary Artery Pressure 26/8 Cardiac Output 7.7 Cardiac Index 4 - Exam Physical Exam: Revealed a 51-year-old white male on nasal cannula in no distress , patient was extubated last night HEENT:[Neck is supple.] [No neck masses.] [No thyromegaly.] [No JVD.] Chest: [Clear throughout, no crackles, no rhonchi, no wheezes.] Cardiac Exam: [Normal S1 and S2, no S3 gallop, no murmur positive pericardial rub.] Abdomen: [Soft, nontender, no megaly, no rebound, no guarding, normal bowel sounds.] Extremities: [No clubbing, no edema, no cyanosis.] Neurological Exam: No gross focal neurologic deficit - Labs CBC & Chem 7: 08/23/16 06:02 08/23/16 06:02 Labs: Abnormal Lab Results - Last 24 Hours (Table) 08/22/16 08/22/16 08/22/16 Range/Units 03:20 12:21 14:47 RBC (4.30-5.90) m/uL Hgb (13.0-17.5) gm/dL Hct (39.0-53.0) % Plt Count (150-450) k/uL APTT (22.0-30.0) sec BUN (9-20) mg/dL Glucose (74-99) mg/dL POC Glucose (mg/dL) 220 H 235 H (75-99) mg/dL Hemoglobin A1c 8.2 H (4.2-6.1) % Total Protein (6.3-8.2) g/dL Albumin (3.5-5.0) g/dL 08/22/16 08/22/16 08/22/16 Range/Units 16:00 17:11 19:20 RBC (4.30-5.90) m/uL Hgb (13.0-17.5) gm/dL Hct (39.0-53.0) % Plt Count (150-450) k/uL APTT (22.0-30.0) sec BUN (9-20) mg/dL Glucose (74-99) mg/dL POC Glucose (mg/dL) 161 H 133 H 200 H (75-99) mg/dL Hemoglobin A1c (4.2-6.1) % Total Protein (6.3-8.2) g/dL Albumin (3.5-5.0) g/dL 08/22/16 08/23/16 08/23/16 Range/Units 21:08 01:40 06:02 RBC 3.50 L (4.30-5.90) m/uL Hgb 10.0 L (13.0-17.5) gm/dL Hct 31.3 L (39.0-53.0) % Plt Count 134 L (150-450) k/uL APTT (22.0-30.0) sec BUN (9-20) mg/dL Glucose (74-99) mg/dL POC Glucose (mg/dL) 211 H 110 H (75-99) mg/dL Hemoglobin A1c (4.2-6.1) % Total Protein (6.3-8.2) g/dL Albumin (3.5-5.0) g/dL 08/23/16 08/23/16 08/23/16 Range/Units 06:02 06:02 06:12 RBC (4.30-5.90) m/uL Hgb (13.0-17.5) gm/dL Hct (39.0-53.0) % Plt Count (150-450) k/uL APTT 31.7 H (22.0-30.0) sec BUN 21 H (9-20) mg/dL Glucose 113 H (74-99) mg/dL POC Glucose (mg/dL) 117 H (75-99) mg/dL Hemoglobin A1c (4.2-6.1) % Total Protein 5.1 L (6.3-8.2) g/dL Albumin 3.0 L (3.5-5.0) g/dL Assessment and Plan Plan: Impression: 1 status post CABG for multiple vessel coronary artery disease, postoperative day #3 2 history of diabetes, hypercholesterolemia, hypertension. 3 postoperative atelectasis most of the left base, patient is advised to do more deep coughing deep breathing and to be more compliant with the incentive spirometer. Recommendation: Continue present treatment plan including incentive spirometry, bronchodilators, early ambulation, we'll follow. Time with Patient: Less than 30
[2016-08-23 17:05] LABS: Glucose,Whole Blood 99 mg/dL (75-99)
[2016-08-23] MEDS: SENNOSIDES-DOCUSATE SODIUM 1 EACH TAB PO SCH (20:08)
[2016-08-23] MEDS: INSULIN NPH 300 UNIT/3 ML VIAL SQ SCH (21:23)
[2016-08-23 21:43] LABS: Glucose,Whole Blood 138 mg/dL (75-99)
[2016-08-24 01:26] VITALS: RESP 16
[2016-08-24 02:16] LABS: Glucose,Whole Blood 107 mg/dL (75-99)
[2016-08-24] MEDS: INSULIN LISPRO (humaLOG) 300 UNIT/3 ML VIAL SQ SCH ×3 (02:42→12:23)
[2016-08-24] MEDS: HYDROcodone/APAP 5-325MG 1 EACH TAB PO PRN (04:50)
[2016-08-24 06:00] LABS: Basophils % (A) 0 %; CH 29.9; CHCM 33.2; Eosinophils # (A) 0.1 k/uL (0-0.7); Eosinophils % (A) 2 %; HDW 2.81; HGB 10.4 gm/dL (13.0-17.5); Luc # (Auto) 0.18; Luc % (Auto) 3; Lymphocytes % (A) 14 %; MCH 29.5 pg (25.0-35.0); MCHC 32.6 g/dL (31.0-37.0); MCV 90.4 fL (80.0-100.0); Mean Platelet Volume 6.9; Monocytes # (A) 0.4 k/uL (0-1.0); Monocytes % (A) 6 %; Neutrophils # (A) 5.6 k/uL (1.3-7.7); Neutrophils % (A) 76 %; RBC 3.54 m/uL (4.30-5.90); WBC 7.4 k/uL (3.8-10.6); WBC (Perox) 7.31
[2016-08-24 06:14] LABS: ALT 25 U/L (21-72); AST 22 U/L (17-59); Alkaline Phosphatase 44 U/L (38-126); Anion Gap 6 mmol/L; Blood Urea Nitrogen 20 mg/dL (9-20); Calcium 8.6 mg/dL (8.4-10.2); Carbon Dioxide 28 mmol/L (22-30); Chloride 104 mmol/L (98-107); Glucose 118 mg/dL (74-99); Non-African American GFR(MDRD) >60 (>60 ml/min/1.73 sqM); Potassium 4.1 mmol/L (3.5-5.1); Sodium 138 mmol/L (137-145); Total Bilirubin 0.7 mg/dL (0.2-1.3); Total Protein 5.4 g/dL (6.3-8.2)
[2016-08-24 06:46] LABS: Glucose,Whole Blood 107 mg/dL (75-99)
[2016-08-24] MEDS: PANTOPRAZOLE 40 MG TABLET PO SCH (06:54)
--- NOTE | 2016-08-24 07:57 | XR ---
EXAMINATION TYPE: XR chest 1V portable DATE OF EXAM: 08/24/2016 COMPARISON: Prior chest x-ray 23 Aug 2016 HISTORY: Status post coronary artery bypass graft, chest tube removal TECHNIQUE: Single frontal view of the chest is obtained. FINDINGS: Bilateral chest tubes have been removed. Patient is post median sternotomy and there are o verlying cardiac leads. There is no sizable pneumothorax, minimal apical pneumothorax is suspected on the left. Patchy atelectatic changes persist on the left. IMPRESSION: Minimal apical pneumothorax on the left, no evident complication status post chest tube removal.
[2016-08-24] MEDS: INSULN ASP PRT/INSULIN ASPART 100 UNIT/ML 10 ML VIAL SQ SCH (08:22)
[2016-08-24] MEDS: HEPARIN SODIUM,PORCINE 5,000 UNIT/ML 1 ML VIAL SQ SCH (08:23)
[2016-08-24] MEDS: METOPROLOL TARTRATE 25 MG TAB PO SCH (08:24)
[2016-08-24] MEDS: LISINOPRIL 10 MG TAB PO SCH (08:24)
[2016-08-24] MEDS: ATORVASTATIN 40 MG TAB PO SCH (08:24)
[2016-08-24] MEDS: ASPIRIN 325 MG TAB PO SCH (08:24)
[2016-08-24] MEDS: CLOPIDOGREL 75 MG TAB PO SCH (08:24)
[2016-08-24] MEDS ORDERED: METOPROLOL TARTRATE 25 MG TAB PO STA (08:36)
--- NOTE | 2016-08-24 10:14 | PN ---
Eliot is doing well. He is sitting up in the chair. No chest discomfort. No breathing trouble. No lower extremity edema. On examination, blood pressure 170/73 mmHg. Pulse rate in the 80s. Temperature 98.9. There was low-grade fever of 100.6 degrees Fahrenheit recorded this morning. Breath sounds are reduced bilaterally. No rhonchi. No crackles. Abdomen is soft, nontender. Heart sounds are normal. Extremities are warm. IMPRESSION: Coronary artery disease, status post coronary artery bypass grafting. Chest tubes have all come out. SUGGEST: Continue current medications and likely discharge in the next 24 to 48 hours as long as he does not have any fever or any other new symptoms development. White count is normal.
--- NOTE | 2016-08-24 11:30 | PN ---
DATE OF SERVICE: 08/23/2016 This 51-year-old gentleman admitted with CAD with CABG x4, is being closely monitored. The patient has diabetes mellitus. The patient is on multiple doses of insulin. Patient is being closely monitored. No chest pain or palpitations. No fever. PAST MEDICAL HISTORY: Reviewed. REVIEW OF SYSTEMS: CARDIOVASCULAR: No angina or palpitations. GI: As mentioned. : No dysuria or hematuria. Current medications are reviewed and include: 1. [place] 5 mg every 4 p.r.n. 2. Albuterol and Atrovent q.i.d. and p.r.n. 3. Aspirin 325 mg. 4. Lipitor 40 mg daily. 5. Plavix 75 mg daily. 6. NovoLog mix 70/30, 34 units subcu breakfast and Lispro 9 units with supper. Humalog scale. 7. Milk of magnesia. 8. Reglan. 9. Lopressor. 10. Zofran. 11. Protonix. 12. Ecotrin. PHYSICAL EXAMINATION: GENERAL: Alert, oriented x4. VITAL SIGNS: Pulse 80, blood pressure 120/69, respirations 18, temperature 98, pulse ox 94% on 3 L. HEENT: Conjunctivae normal. NECK: Supple. No JVD. CARDIOVASCULAR: S1 and S2 muffled. LUNGS: Breath sounds diminished at the bases. Bilateral scattered rhonchi and crackles. ABDOMEN: Soft, nontender. EXTREMITIES: No focal deficits. LABS: WBC 8, hemoglobin 10, glucose 117. ASSESSMENT: 1. Coronary artery disease status post coronary artery bypass grafting x4. 2. Diabetes mellitus type 2, status post insulin drip. 3. Hypertension, essential. 4. Hyperlipidemia. 5. Anemia, acute blood loss, suspected from surgery. 6. Thrombocytopenia, dilutional, suspected. 7. FULL CODE. Recommendations: Continue symptomatic treatment. Otherwise, at this time recommend incentive spirometry. Continue insulin dose. blood sugars much better controlled at this time. The most recent blood sugar is 110, 117, 92 and 99. Continue to monitor and insure adequate p.o. intake. Further recommendations to follow.
--- NOTE | 2016-08-24 11:50 | P.PN ---
<Rama Bryant - Last Filed: 08/24/16 11:49> Subjective Principal diagnosis: Coronary artery disease. POD #4 coronary artery bypass grafting 4 vessels (left internal mammary artery to left anterior descending artery, saphenous vein graft to diagonal artery, saphenous vein graft to obtuse marginal artery, saphenous vein graft to posterior descending artery). Endoscopic vein harvest left greater saphenous vein. Epi-aortic ultrasound. Intraoperative transesophageal echocardiogram. Patient currently sitting up in a chair in no apparent distress. Family at bedside. Denies chest pain/shortness of breath. Anxious to go home. Objective - Vital Signs Vital signs: Vital Signs Temp 100.6 F H 08/24/16 04:00 Pulse 85 08/24/16 04:00 Resp 16 08/24/16 04:00 BP 148/87 08/24/16 04:00 Pulse Ox 85 L 08/24/16 04:00 Intake & Output 08/23/16 08/24/16 08/24/16 18:59 06:59 18:59 Intake Total 280 20 Output Total 300 Balance -20 20 Weight 82.4 kg Intake: IV 20 0.9% ns flush 20 Oral 280 Output: Urine 300 Other: Voiding Method Urinal # Voids 1 # Bowel Movements 1 ABP, PAP, CO, CI - Last Documented Arterial Blood Pressure 139/66 Pulmonary Artery Pressure 26/8 Cardiac Output 7.7 Cardiac Index 4 - Constitutional General appearance: Present: cooperative, no acute distress - Respiratory Details: Lungs sounds diminished bilaterally. Respirations even, nonlabored. Currently on room air with oxygen saturation in the low 90s. Able to achieve 1000 mL on his incentive spirometer. Effective cough. - Cardiovascular Details: S1, S2 present. Regular rate and rhythm, normal sinus rhythm on telemetry. Sternum stable. Heart hugger in place with patient demonstrating appropriate use. Teds/SCDs present. - Gastrointestinal Gastrointestinal Comment(s): Abdomen soft, nontender, nondistended. Active bowel sounds 4 quadrants. Positive bowel movement yesterday. Tolerating diet. - Genitourinary Genitourinary Comment(s): Continues to void clear, yellow urine. - Integumentary Integumentary Comment(s): Anterior chest incision well approximated and covered with dry intact dressing. - Musculoskeletal Musculoskeletal: Present: gait normal, strength equal bilaterally - Psychiatric Psychiatric: Present: A&O x's 3, appropriate affect, intact judgment & insight - Allied health notes Allied health notes reviewed: nursing - Labs CBC & Chem 7: 08/24/16 05:32 08/24/16 05:32 Labs: Abnormal Lab Results - Last 24 Hours (Table) 08/23/16 08/24/16 08/24/16 Range/Units 21:06 02:01 05:32 RBC 3.54 L (4.30-5.90) m/uL Hgb 10.4 L (13.0-17.5) gm/dL Hct 32.0 L (39.0-53.0) % Glucose (74-99) mg/dL POC Glucose (mg/dL) 138 H 107 H (75-99) mg/dL Total Protein (6.3-8.2) g/dL Albumin (3.5-5.0) g/dL 08/24/16 08/24/16 Range/Units 05:32 06:00 RBC (4.30-5.90) m/uL Hgb (13.0-17.5) gm/dL Hct (39.0-53.0) % Glucose 118 H (74-99) mg/dL POC Glucose (mg/dL) 107 H (75-99) mg/dL Total Protein 5.4 L (6.3-8.2) g/dL Albumin 2.9 L (3.5-5.0) g/dL - Imaging and Cardiology Chest x-ray: image reviewed Assessment and Plan (1) Coronary artery disease Status: Acute (2) Diabetes mellitus Status: Acute (3) Hyperlipidemia Status: Acute (4) Hypertension Status: Acute Plan: 1. Continue aspirin, statin, Plavix, heparin subcu,will increase Lopressor to 50 twice a day. 2. Encourage incentive spirometry use. 3. Increase activity, ambulate in hallway. Physical therapy to follow. 4. GI/DVT prophylaxis. 5. Likely will discharge this afternoon to home with home care. Time with Patient: Greater than 30 <Bobby Cox - Last Filed: 08/24/16 12:07> Objective - Vital Signs Vital signs: Vital Signs Temp 98.5 F 08/24/16 11:55 Pulse 75 08/24/16 11:58 Resp 16 08/24/16 11:58 BP 113/72 08/24/16 11:55 Pulse Ox 98 08/24/16 11:55 Intake & Output 08/23/16 08/24/16 08/24/16 18:59 06:59 18:59 Intake Total 280 20 Output Total 300 400 Balance -20 20 -400 Weight 82.4 kg Intake: IV 20 0.9% ns flush 20 Oral 280 Output: Urine 300 400 Other: Voiding Method Urinal Urinal # Voids 1 1 # Bowel Movements 1 ABP, PAP, CO, CI - Last Documented Arterial Blood Pressure 139/66 Pulmonary Artery Pressure 26/8 Cardiac Output 7.7 Cardiac Index 4 - Labs CBC & Chem 7: 08/24/16 05:32 08/24/16 05:32 Labs: Abnormal Lab Results - Last 24 Hours (Table) 08/23/16 08/24/16 08/24/16 Range/Units 21:06 02:01 05:32 RBC 3.54 L (4.30-5.90) m/uL Hgb 10.4 L (13.0-17.5) gm/dL Hct 32.0 L (39.0-53.0) % Glucose (74-99) mg/dL POC Glucose (mg/dL) 138 H 107 H (75-99) mg/dL Total Protein (6.3-8.2) g/dL Albumin (3.5-5.0) g/dL 08/24/16 08/24/16 Range/Units 05:32 06:00 RBC (4.30-5.90) m/uL Hgb (13.0-17.5) gm/dL Hct (39.0-53.0) % Glucose 118 H (74-99) mg/dL POC Glucose (mg/dL) 107 H (75-99) mg/dL Total Protein 5.4 L (6.3-8.2) g/dL Albumin 2.9 L (3.5-5.0) g/dL Assessment and Plan Plan: The patient was seen and examined. I agree with the above assessment and plan. We will plan on discharging him home today.
--- NOTE | 2016-08-24 11:54 | P.DS ---
Providers Date of admission: 08/20/16 05:47 Attending physician: Bobby Cox Consults: 08/20/16 14:58 Consult Physician Routine Consulting Provider: Hedy Shin Consult Reason/Comments: Spinning Lathe Operator Hydraulic Consult: post cardiac surgery Do you want consulting provider notified?: Yes Consult Physician Routine Consulting Provider: Nessa Whitney Consult Reason/Comments: Audio Visual Specialist Consult: post cardiac surgery Do you want consulting provider notified?: Yes Consult Physician Routine Consulting Provider: Pelon Manzano Consult Reason/Comments: medical management Do you want consulting provider notified?: Yes Primary care physician: Stated None - Discharge Diagnosis(es) (1) Coronary artery disease Status: Acute (2) Diabetes mellitus Status: Acute (3) Hyperlipidemia Status: Acute (4) Hypertension Status: Acute Hospital Course: FINAL DIAGNOSIS: 1.[Multivessel coronary artery disease.] 2.[Hypertension] 3.[Hyperlipidemia] 4.[Uncontrolled type 2 diabetes mellitus, hemoglobin A1c 8.2%] PRINCIPAL PROCEDURE: [] 1.[Elective coronary artery bypass grafting 4 vessels, left internal mammary artery to left anterior descending artery, saphenous vein graft to diagonal artery, saphenous vein graft to obtuse marginal artery, saphenous vein graft to posterior descending artery] 2.[Endoscopic vein harvest left greater saphenous] 3.[Epi-aortic ultrasound] 4.[Intraoperative transesophageal echocardiogram] HISTORY OF PRESENT ILLNESS: [This 51-year-old male presented to cardiology with reports of occasional chest pain with activity. He did deny shortness of breath , fevers, chills, or swelling in his legs. He underwent a stress test which was found to be abnormal. Subsequently Dr. Shin performed a heart catheterization which revealed multivessel coronary artery disease. Dr. Cox from cardiothoracic surgery was consulted for the possibility of surgical revascularization. An extensive discussion was had with the patient and his family, risks and benefits were explained, and consent was obtained to proceed with surgery. He did ask for surgery to be postponed for a couple of weeks as he had some personal business to take care of. Preoperative testing testing was initiated and completed while the patient was in the hospital after his heart catheterization, and he was discharged home to be brought back in as an outpatient.] HOSPITAL COURSE:[ The patient was brought to the hospital on 08/20/2016, taken to the preoperative area, prepared in usual fashion, and subsequently taken to the operating room where Dr. Cox performed an elective coronary artery bypass grafting 4 vessels, left internal mammary artery to the left anterior descending artery, reverse saphenous vein graft to the diagonal artery, reverse saphenous vein graft to the obtuse marginal artery, reverse saphenous vein graft to the posterior descending artery, endoscopic vein harvesting of the left greater saphenous vein, epi-aortic ultrasound, and intraoperative transesophageal echocardiogram. Upon completion of surgery, the patient was transferred to the cardiovascular intensive care unit where he was recovered, monitored hemodynamically, and where he progressed to cardiac rehabilitation phase 1. He was extubated, all lines, tubes, and drips were discontinued when appropriate, and he was transferred to [address] [place] [address] for further monitoring and rehabilitation. His oxygen was titrated down, he continued to work with physical therapy, and was ready to be discharged home on postoperative day #4 with [facility] to follow. He received written and verbal instruction regarding his medications, activity restrictions, signs and symptoms requiring physician notification, and follow-up appointments.] COMPLICATIONS: [There were no postoperative complications.] CONSULTATIONS: 1.[Dr. Shin for cardiology.] 2.[Dr. Devonte laguna for pulmonology] 3.[Dr. Manzano for medical management] DISCHARGE INSTRUCTIONS: 1. No driving for 4 weeks, or until physician gives their ok. 2. The patient should sleep in their own bed, no medical bed needed. 3. Stairs are not an issue. If the bedroom is upstairs, it is advised that the patient go up at night and down in the morning for the first week. Go slowly, using handrail and take 1 step at a time. 4. SEBASTIAN hose are to be worn for 30 days or until physician discontinues. 5. Heart hugger is to be worn 100% of the time until physician discontinues.( except when showering) 6. No lifting, pushing, or pulling more than 10 pounds for 12 weeks. The physician will advise of any restriction changes. 7. The patient is expected to continue the prescribed walking program. 8. Continue pain control per as needed orders. 9. Continue with incentive spirometry and splinting/heart hugger until otherwise directed by the physician. 10. Must shower daily using liquid antibacterial soap and a separate white washcloth for each individual incision. 11. Routine sternal incision care. No lotions, powders, ointments on incisions. 12. Please call surgeon/MANAGER OF [facility]IED HEALTH SERVICES if you have a temp greater than 101F or purulent drainage from your incisions. HOME HEALTH SERVICES TO PROVIDE: RN SKILLED HOME CARE SERVICES FOR POST-OP SURGICAL PATIENTS WITH THE FOLLOWING: Coronary Artery Bypass Surgery (CABG), Mitral Valve Replacement/ Repair ( MVR), Aortic Valve Replacement/Repair (AVR) RN TO CONTINUE EDUCATION FROM ``ROAD TO A HEALTH HEART PATIENT EDUCATION MANUAL (GIVEN TO PATIENT IN THE HOSPITAL) MEDICATION RECONCILIATION WITH EDUCATION NEEDED ON FIRST HOME VISIT EMPHASIZE IMPORTANCE OF WEARING BREAST SUPPORT/HEART HUGGER ENCOURAGE USE OF INCENTIVE SPIROMETER 10 X EVERY HOUR WHILE AWAKE ENCOURAGE UTILIZATION OF LOWER EXTREMITY COMPRESSION STOCKINGS/SEBASTIAN HOSE and ELEVATE LEGS ABOVE LEVEL OF HEART WHILE AT REST. ENCOURAGE AMBULATION 3-5x/day INCREASING TOLERATES, WHILE AVOID EXTREMES IN TEMPERATURE FREQUENCY: RN TO OPEN THE PATIENT WITHIN 24 HOURS OF DISCHARGE FROM THE HOSPITAL WITH TELEHEALTH INSTALLED AT [facility] [place], RN TO VISIT 2-3 X A WEEK FOR 4 WEEKS ESTABLISHED BY PATIENT NEEDS. LABORATORY: CBC, CMP TO BE DRAWN ON THE THIRD DAY HOME, 08/27/2016 (RAN STAT) FAX RESULTS TO [phone]. TELEHEALTH PARAMETERS: WEIGHT: NOTIFY MD OF WEIGHT GAIN OF 2 LBS IN 24 HOURS OR 5 LBS IN ONE WEEK HR: NOTIFY MD OF HR <55 BPM OR HR>100 BPM BP: NOTIFY MD IF BP <90/55 OR BP>140/100 O2 SAT: NOTIFY MD IF PO2<93% ON ROOM AIR SEND TELEHEALTH REPORT TO ATTENDING RADIOLOGIST AND CARDIOVASCULAR SURGEON THE FIRST WEEK OF CARE AND THEN BI-WEEKLY. PLEASE ADDITIONALLY COMMUNICATE ANY ABNORMALS AND NEW FINDINGS TO THE SURGEONS OFFICE . Plan - Discharge Summary New Discharge Prescriptions: Aspirin 325 mg PO DAILY #30 tab Atorvastatin [Lipitor] 40 mg PO DAILY #30 tab Clopidogrel [Plavix] 75 mg PO DAILY #30 tab HYDROcodone/APAP 5-325MG [Palisade 5-325] 1 - 2 each PO Q6HR PRN #120 tab PRN Reason: Severe Pain Metoprolol Tartrate [Lopressor] 50 mg PO BID #60 tab Pantoprazole [Protonix] 40 mg PO AC-BRKFST #30 tab Discharge Medication List Dapagliflozin Propanediol [Farxiga] 10 mg PO DAILY 08/06/16 [History] Lisinopril [Prinivil] 10 mg PO DAILY 08/06/16 [History] glipiZIDE [Glucotrol] 10 mg PO AC-BRKFST 08/06/16 [History] Aspirin 325 mg PO DAILY #30 tab 08/24/16 [Rx] Atorvastatin [Lipitor] 40 mg PO DAILY #30 tab 08/24/16 [Rx] Clopidogrel [Plavix] 75 mg PO DAILY #30 tab 08/24/16 [Rx] HYDROcodone/APAP 5-325MG [Palisade 5-325] 1 - 2 each PO Q6HR PRN #120 tab 08/24/16 [Rx] Metoprolol Tartrate [Lopressor] 50 mg PO BID #60 tab 08/24/16 [Rx] Pantoprazole [Protonix] 40 mg PO AC-BRKFST #30 tab 08/24/16 [Rx] Sennosides-Docusate Sodium [Senokot-S] 2 each PO HS tab 08/24/16 [Rx] Follow up Appointment(s)/Referral(s): Nessa Whitney MD [STAFF PHYSICIAN] - 09/21/16 2:45 pm Rama Bryant NPC [Nurse Practitioner] - 08/28/16 12:00 pm [facility], [NON-STAFF] - Bobby Cox MD [STAFF PHYSICIAN] - 09/11/16 10:30 am Amish Jesus MD [STAFF PHYSICIAN] - 08/31/16 2:00 pm Hedy Shin MD [STAFF PHYSICIAN] - 09/07/16 3:15 pm Ambulatory/Diagnostic Orders: Complete Blood Count w/diff [LAB.AMB] Time Frame: 3 Days, Location: Determined By Patient Comprehensive Metabolic Panel [LAB.AMB] Time Frame: 3 Days, Location: Determined By Patient Activity/Diet/Wound Care/Special Instructions: DISCHARGE INSTRUCTIONS: 1. No driving for 4 weeks, or until physician gives their ok. 2. The patient should sleep in their own bed, no medical bed needed. 3. Stairs are not an issue. If the bedroom is upstairs, it is advised that the patient go up at night and down in the morning for the first week. Go slowly, using handrail and take 1 step at a time. 4. SEBASTIAN hose are to be worn for 30 days or until physician discontinues. 5. Heart hugger is to be worn 100% of the time until physician discontinues.( except when showering) 6. No lifting, pushing, or pulling more than 10 pounds for 12 weeks. The physician will advise of any restriction changes. 7. The patient is expected to continue the prescribed walking program. 8. Continue pain control per as needed orders. 9. Continue with incentive spirometry and splinting/heart hugger until otherwise directed by the physician. 10. Must shower daily using liquid antibacterial soap and a separate white washcloth for each individual incision. 11. Routine sternal incision care. No lotions, powders, ointments on incisions. 12. Please call surgeon/MANAGER OF ALLIED HEALTH SERVICES if you have a temp greater than 101F or purulent drainage from your incisions. HOME HEALTH SERVICES TO PROVIDE: RN SKILLED HOME CARE SERVICES FOR POST-OP SURGICAL PATIENTS WITH THE FOLLOWING: Coronary Artery Bypass Surgery (CABG), Mitral Valve Replacement/ Repair ( MVR), Aortic Valve Replacement/Repair (AVR) RN TO CONTINUE EDUCATION FROM ``ROAD TO A HEALTH HEART PATIENT EDUCATION MANUAL (GIVEN TO PATIENT IN THE HOSPITAL) MEDICATION RECONCILIATION WITH EDUCATION NEEDED ON FIRST HOME VISIT EMPHASIZE IMPORTANCE OF WEARING BREAST SUPPORT/HEART HUGGER ENCOURAGE USE OF INCENTIVE SPIROMETER 10 X EVERY HOUR WHILE AWAKE ENCOURAGE UTILIZATION OF LOWER EXTREMITY COMPRESSION STOCKINGS/SEBASTIAN HOSE and ELEVATE LEGS ABOVE LEVEL OF HEART WHILE AT REST. ENCOURAGE AMBULATION 3-5x/day INCREASING TOLERATES, WHILE AVOID EXTREMES IN TEMPERATURE FREQUENCY: RN TO OPEN THE PATIENT WITHIN 24 HOURS OF DISCHARGE FROM THE HOSPITAL WITH TELEHEALTH INSTALLED AT [facility] [place], RN TO VISIT 2-3 X A WEEK FOR 4 WEEKS ESTABLISHED BY PATIENT NEEDS. LABORATORY: CBC, CMP TO BE DRAWN ON THE THIRD DAY HOME, 08/27/2016 (RAN STAT) FAX RESULTS TO [phone]. TELEHEALTH PARAMETERS: WEIGHT: NOTIFY MD OF WEIGHT GAIN OF 2 LBS IN 24 HOURS OR 5 LBS IN ONE WEEK HR: NOTIFY MD OF HR <55 BPM OR HR>100 BPM BP: NOTIFY MD IF BP <90/55 OR BP>140/100 O2 SAT: NOTIFY MD IF PO2<93% ON ROOM AIR SEND TELEHEALTH REPORT TO ATTENDING RADIOLOGIST AND CARDIOVASCULAR SURGEON THE FIRST WEEK OF CARE AND THEN BI-WEEKLY. PLEASE ADDITIONALLY COMMUNICATE ANY ABNORMALS AND NEW FINDINGS TO THE SURGEONS OFFICE . Discharge Disposition: HOME WITH HOME HEALTH SERVICES
[2016-08-24 11:56] VITALS: BP 113/72; PULSE 75; TEMP 98.5
[2016-08-24 12:09] LABS: Glucose,Whole Blood 118 mg/dL (75-99)
--- NOTE | 2016-08-24 12:22 | P.PN ---
Subjective Principal diagnosis: Status post CABG for triple multivessel coronary artery disease postoperative day # 4 This is a 51-year-old white male with history of hypertension, diabetes, hypercholesterolemia, patient had a recent stress test which was found to be abnormal. Cardiac catheterization showed multivessel coronary artery disease. Patient was basically relatively asymptomatic except for occasional chest pains and fatigue. Today, the patient underwent myocardial revascularization, postoperatively he was on mechanical ventilation, and I was asked to see him on consultation. Patient is on mechanical ventilation, his chest x-ray was reviewed and showed mostly postoperative changes. ABG was reviewed and events settings were addressed accordingly. Patient was reevaluated today on 08/21/2016, extubated last night uneventfully, presently on nasal cannula, in no distress. Relatively asymptomatic. Chest x- ray is reassuring except for minimal bibasilar atelectasis. No evidence of congestive heart failure or interstitial edema. No evidence of pneumonia. No evidence of pneumothorax. Reevaluated today on 08/22/2016, patient is doing relatively well, however he had episodes of desaturation last night, requiring placement on a high flow nasal cannula, and he remains on 8 L of nasal cannula/high flow. O2 saturations are in the low 90s. More atelectasis is noted of the left base, hence the patient was advised to have more deep coughing and more deep breathing , and to be compliant with the incentive spirometry. Patient is asymptomatic except for generalized weakness. Did not sleep well last night. Labs were reviewed relatively normal CBC was noted and normal electrolytes and renal profile. Patient was reevaluated on 08/23/2016, continues to do quite well, he is down to 3 L nasal cannula. Feeling better, chest x-ray is showing definite improvement in his atelectasis. Better aeration is noted in the left base. Clinically the patient is also better. Patient was reevaluated today on 08/24/2016, his postoperative day #4, doing well , off oxygen O2 saturation is 93% on room air. Ambulatory, been walking down the hallway. Chest x-ray was reviewed, minimal atelectasis is noted of the left base otherwise unremarkable. Objective - Vital Signs Vital signs: Vital Signs Temp 98.5 F 08/24/16 11:55 Pulse 75 08/24/16 11:58 Resp 16 08/24/16 11:58 BP 113/72 08/24/16 11:55 Pulse Ox 98 08/24/16 11:55 Intake & Output 08/23/16 08/24/16 08/24/16 18:59 06:59 18:59 Intake Total 280 20 Output Total 300 400 Balance -20 20 -400 Weight 82.4 kg Intake: IV 20 0.9% ns flush 20 Oral 280 Output: Urine 300 400 Other: Voiding Method Urinal Urinal # Voids 1 1 # Bowel Movements 1 ABP, PAP, CO, CI - Last Documented Arterial Blood Pressure 139/66 Pulmonary Artery Pressure 26/8 Cardiac Output 7.7 Cardiac Index 4 - Exam Physical Exam: Revealed a 51-year-old white male on nasal cannula in no distress , patient was extubated last night HEENT:[Neck is supple.] [No neck masses.] [No thyromegaly.] [No JVD.] Chest: [Clear throughout, no crackles, no rhonchi, no wheezes.] Cardiac Exam: [Normal S1 and S2, no S3 gallop, no murmur positive pericardial rub.] Abdomen: [Soft, nontender, no megaly, no rebound, no guarding, normal bowel sounds.] Extremities: [No clubbing, no edema, no cyanosis.] Neurological Exam: No gross focal neurologic deficit - Labs CBC & Chem 7: 08/24/16 05:32 08/24/16 05:32 Labs: Abnormal Lab Results - Last 24 Hours (Table) 08/23/16 08/24/16 08/24/16 Range/Units 21:06 02:01 05:32 RBC 3.54 L (4.30-5.90) m/uL Hgb 10.4 L (13.0-17.5) gm/dL Hct 32.0 L (39.0-53.0) % Glucose (74-99) mg/dL POC Glucose (mg/dL) 138 H 107 H (75-99) mg/dL Total Protein (6.3-8.2) g/dL Albumin (3.5-5.0) g/dL 08/24/16 08/24/16 08/24/16 Range/Units 05:32 06:00 11:55 RBC (4.30-5.90) m/uL Hgb (13.0-17.5) gm/dL Hct (39.0-53.0) % Glucose 118 H (74-99) mg/dL POC Glucose (mg/dL) 107 H 118 H (75-99) mg/dL Total Protein 5.4 L (6.3-8.2) g/dL Albumin 2.9 L (3.5-5.0) g/dL Assessment and Plan Plan: Impression: 1 status post CABG for multiple vessel coronary artery disease, postoperative day # 4 2 history of diabetes, hypercholesterolemia, hypertension. 3 postoperative atelectasis most of the left base, patient is advised to do more deep coughing deep breathing and to be more compliant with the incentive spirometer. Recommendation: Continue present treatment plan including incentive spirometry, discharge planning is in progress to be done today. Time with Patient: Less than 30
[2016-08-24] MEDS ORDERED: METOPROLOL TARTRATE 50 MG TAB PO SCH (21:00)
[2016-09-02 14:06] LABS: ABG Base Excess -2.5 mmol/L; ABG HCO3 21 mmol/L (21-25); ABG PCO2 34 mmHg (35-45); ABG PH 7.41 (7.35-7.45); ABG PO2 368 mmHg (83-108); ABG TCO2 22 mmol/L (19-24)
[2016-09-02 14:07] LABS: ABG Base Excess -3.4 mmol/L; ABG HCO3 20 mmol/L (21-25); ABG PCO2 31 mmHg (35-45); ABG PH 7.42 (7.35-7.45); ABG PO2 128 mmHg (83-108); ABG TCO2 21 mmol/L (19-24)
[2016-09-02 14:08] LABS: ABG HCO3 23 mmol/L (21-25); ABG PCO2 37 mmHg (35-45); ABG PH 7.41 (7.35-7.45); ABG PO2 >420 mmHg (83-108); ABG TCO2 24 mmol/L (19-24)
[2016-09-02 14:09] LABS: ABG Base Excess -1.4 mmol/L; ABG HCO3 24 mmol/L (21-25); ABG Oxygen Saturation 99.9 % (94-97); ABG PCO2 45 mmHg (35-45); ABG PH 7.34 (7.35-7.45); ABG PO2 378 mmHg (83-108); ABG TCO2 25 mmol/L (19-24)
[2016-09-02 14:10] LABS: ABG Base Excess -1.5 mmol/L; ABG HCO3 24 mmol/L (21-25); ABG Oxygen Saturation 99.9 % (94-97); ABG PCO2 50 mmHg (35-45); ABG PH 7.31 (7.35-7.45); ABG PO2 348 mmHg (83-108); ABG TCO2 26 mmol/L (19-24)
[2016-09-02 14:11] LABS: ABG Base Excess -1.5 mmol/L; ABG HCO3 24 mmol/L (21-25); ABG Oxygen Saturation 99.9 % (94-97); ABG PCO2 47 mmHg (35-45); ABG PH 7.33 (7.35-7.45); ABG PO2 322 mmHg (83-108); ABG TCO2 25 mmol/L (19-24)
[2016-09-02 14:12] LABS: ABG Base Excess -1.1 mmol/L; ABG HCO3 22 mmol/L (21-25); ABG Oxygen Saturation 99.7 % (94-97); ABG PCO2 31 mmHg (35-45); ABG PH 7.46 (7.35-7.45); ABG PO2 177 mmHg (83-108); ABG TCO2 23 mmol/L (19-24)
== END 2016-08-24 13:12 | disposition home health service (06) | DRG 236 ==
LOC: 2ORMAIN 05:47 → 6ICU 14:56 → 6SEL 08-22 21:20
PROVIDERS: ADMIT Surgery; ATTEND Surgery
PROC: 021209W Bypass Coronary Artery, Three Arteries from Aorta with Autologous Venous Tissue, Open Approach (ICD-10-PCS; 2016-08-20)
PROC: 06BQ4ZZ Excision of Left Saphenous Vein, Percutaneous Endoscopic Approach (ICD-10-PCS; 2016-08-20)
PROC: B246ZZ4 Ultrasonography of Right and Left Heart, Transesophageal (ICD-10-PCS; 2016-08-20)
PROC: 5A1221Z Performance of Cardiac Output, Continuous (ICD-10-PCS; 2016-08-20)
PROC: 02100Z9 Bypass Coronary Artery, One Artery from Left Internal Mammary, Open Approach (ICD-10-PCS; principal; 2016-08-20 08:00)
DX: I25.119 Atherosclerotic heart disease of native coronary artery with unspecified angina pectoris (principal); E11.65 Type 2 diabetes mellitus with hyperglycemia; D69.6 Thrombocytopenia, unspecified; D62 Acute posthemorrhagic anemia; I10 Essential (primary) hypertension; E78.5 Hyperlipidemia, unspecified; E78.00 Pure hypercholesterolemia, unspecified; F41.9 Anxiety disorder, unspecified; R09.02 Hypoxemia; R50.9 Fever, unspecified; R53.1 Weakness; I34.0 Nonrheumatic mitral (valve) insufficiency; I65.23 Occlusion and stenosis of bilateral carotid arteries; Z80.9 Family history of malignant neoplasm, unspecified; Z86.19 Personal history of other infectious and parasitic diseases; Z79.82 Long term (current) use of aspirin; Z79.84 Long term (current) use of oral hypoglycemic drugs; Z79.899 Other long term (current) drug therapy; Z82.49 Family history of ischemic heart disease and other diseases of the circulatory system
CPT/HCPCS: 36600; 36620; 71010; 80053; 82330; 82805; 83036; 83735; 84100; 84132; 85025; 85520; 85610; 85730; 86850; 86891; 86900; 86901; 86920; 94002; 94640

== ENCOUNTER → 2016-08-31 | Outpatient (CLI) | payer OTHER ==
[2016-08-31 11:31] LABS: Basophils # (A) 0.1 k/uL (0-0.2); Basophils % (A) 1 %; CH 29.3; CHCM 32.9; Eosinophils # (A) 0.2 k/uL (0-0.7); Eosinophils % (A) 2 %; HCT 37.9 % (39.0-53.0); HDW 3.18; HGB 12.4 gm/dL (13.0-17.5); Luc # (Auto) 0.18; Luc % (Auto) 2; Lymphocytes # (A) 1.2 k/uL (1.0-4.8); Lymphocytes % (A) 11 %; MCH 29.2 pg (25.0-35.0); MCHC 32.6 g/dL (31.0-37.0); MCV 89.4 fL (80.0-100.0); Mean Platelet Volume 6.6; Monocytes # (A) 0.5 k/uL (0-1.0); Monocytes % (A) 4 %; Neutrophils % (A) 81 %; RBC 4.24 m/uL (4.30-5.90); WBC 11.1 k/uL (3.8-10.6); WBC (Perox) 11.75
[2016-08-31 11:46] LABS: ALT 59 U/L (21-72); AST 20 U/L (17-59); Alkaline Phosphatase 87 U/L (38-126); Anion Gap 11 mmol/L; Blood Urea Nitrogen 27 mg/dL (9-20); Calcium 9.5 mg/dL (8.4-10.2); Carbon Dioxide 23 mmol/L (22-30); Chloride 105 mmol/L (98-107); Glucose 231 mg/dL (74-99); Non-African American GFR(MDRD) >60 (>60 ml/min/1.73 sqM); Potassium 5.2 mmol/L (3.5-5.1); Sodium 139 mmol/L (137-145); Total Bilirubin 0.6 mg/dL (0.2-1.3); Total Protein 7.1 g/dL (6.3-8.2)
== END | disposition home or self-care (01) ==
LOC: LABWHC1 10:54
PROVIDERS: ATTEND Nurse Practitioner Acute Care
DX: Z48.812 Encounter for surgical aftercare following surgery on the circulatory system (principal)
CPT/HCPCS: 36415; 80053; 85025

== ENCOUNTER → 2016-09-23 | Outpatient (CLI) | payer OTHER ==
[2016-09-23 09:29] LABS: ALT 41 U/L (21-72); AST 23 U/L (17-59); Anion Gap 12 mmol/L; Blood Urea Nitrogen 22 mg/dL (9-20); Calcium 9.6 mg/dL (8.4-10.2); Carbon Dioxide 22 mmol/L (22-30); Chloride 109 mmol/L (98-107); Cholesterol 134 mg/dL (<200); Glucose 160 mg/dL (74-99); HDL Cholesterol 44 mg/dL (40-60); Non-African American GFR(MDRD) >60 (>60 ml/min/1.73 sqM); Potassium 4.2 mmol/L (3.5-5.1); Sodium 143 mmol/L (137-145); Triglycerides 66 mg/dL (<150)
== END | disposition home or self-care (01) ==
LOC: LABWHC1 08:44
PROVIDERS: ATTEND Internal Medicine Cardiovascular Disease
DX: E78.5 Hyperlipidemia, unspecified (principal); I25.10 Atherosclerotic heart disease of native coronary artery without angina pectoris
CPT/HCPCS: 36415; 80048; 80061; 84450; 84460

== ENCOUNTER → 2018-04-28 | Outpatient (CLI) | payer SELFPAY ==
[2018-04-28 17:06] LABS: ALT 24 U/L (10-49); AST 29 U/L (14-35); Cholesterol 138 mg/dL (0-200); Triglycerides <50.0 mg/dL (0.0-149.0); VLDL Calculation 9.98 mg/dL (5.00-40.00)
== END | disposition home or self-care (01) ==
LOC: LABWHC1 08:26
PROVIDERS: ATTEND Internal Medicine Cardiovascular Disease
DX: I25.10 Atherosclerotic heart disease of native coronary artery without angina pectoris (principal); E78.5 Hyperlipidemia, unspecified
CPT/HCPCS: 36415; 80061; 84450; 84460